=== PATIENT | female | born 1950 | race Two or more races ===

== ENCOUNTER 2022-08-08 06:21 | Outpatient (REF) | payer MEDICARE, MEDICAID, SELFPAY ==
[2022-08-08 11:24] LABS: Hemoglobin 11.9 g/dl (12.0-16.0); Mean Corpuscular HGB Conc 30.5 g/dl (31.0-35.0); Mean Corpuscular Hemoglobin 27.1 pg (27.0-33.0); Mean Corpuscular Volume 88.8 fL (80.0-98.0); Mean Platelet Volume 13.2 fL (9.4-12.3); Platelet Count 223 X10*3/uL (160-400); Red Blood Count 4.39 X10*6/uL (4.20-5.50); Red Cell Distribution Width 13.8 % (11.0-16.0)
[2022-08-08 11:45] LABS: Alanine Aminotransferase 19 U/L (0-31); Albumin Level 3.9 g/dL (3.5-5.0); Alkaline Phosphatase 72 U/L (39-117); Anion Gap 12 (12-20); Aspartate Amino Transferase 18 U/L (5-31); Blood Urea Nitrogen 18 mg/dL (9-16); Calcium 9.1 mg/dL (8.4-10.2); Carbon Dioxide 26 mmol/L (22-29); Chloride 108 mmol/L (96-108); Cholesterol 126 mg/dL; Estimated Glomerular Filt Rate 60; Glucose Fasting 112 mg/dL (60-99); HDL Cholesterol 38 mg/dL; LDL Cholesterol Calculated 67 mg/dl; Potassium 4.3 mmol/L (3.3-5.1); Sodium 142 mmol/L (135-145); Total Protein 7.3 g/dL (6.5-8.0); Triglycerides 108 mg/dL
[2022-08-08 12:21] LABS: TSH reflex Free T4 1.61 uIU/mL (0.32-4.0); Vitamin D 25-OH Total 29.3 ng/mL (>30)
== END 2022-08-08 06:22 | disposition home or self-care (01) ==
LOC: HO.HMGCLDS 06:21
PROVIDERS: PCP Nurse Practitioner Family; Visit Provider Nurse Practitioner Family
DX: Z00.00 Encounter for general adult medical examination without abnormal findings (principal); E55.9 Vitamin D deficiency, unspecified; Z79.899 Other long term (current) drug therapy
CPT/HCPCS: 36415; 80053; 80061; 82306; 84443; 85027

== ENCOUNTER 2022-11-22 14:40 | Outpatient (REF) | payer MEDICARE, SELFPAY ==
--- NOTE | ~2022-11-22 | MM_ITS ---
EXAMINATION: MM SCREENING DIGITAL BREAST TOMOSYNTHESIS, BILATERAL CLINICAL INFORMATION: Screening. Asymptomatic. The lifetime risk of breast cancer based on the Tyrer-Cuzick Model is 3%. COMPARISON: Mammography: There are no prior mammograms for comparison. TECHNIQUE: Digital breast tomosynthesis is performed in both the craniocaudal and mediolateral oblique views along with computer-aided detection (CAD). Synthesized 2D images are generated from the tomosynthesis. FINDINGS: There are scattered areas of fibroglandular density (ACR BI-RADS breast composition Category b). There are no significant masses, abnormal calcifications, or other abnormalities. MM/MM tomosynthesis screening BI IMPRESSION: No mammographic evidence of malignancy. ASSESSMENT: BI-RADS BI-RADS 1 - Negative RECOMMENDATION: Routine annual mammography screening. 1 year F/U This patient's information was entered into a reminder system with a target due date for their next mammogram.
--- NOTE | ~2022-11-22 | MM_ITS ---
EXAMINATION: BONE DENSITOMETRY CLINICAL INDICATION: Osteoporosis. COMPARISON: None (current study represents initial baseline exam). TECHNIQUE: Using a LocalOn DXA System (software version: 13.1) manufactured by [employer], dual-energy x-ray absorptiometry was performed of the lumbar spine and left hip. The images are of good technical quality. Summary results are attached. FINDINGS: LEFT FEMUR, NECK: BMD 0.766 g/cm2, Z-score -0.9, T-score -2.0, osteopenia. LEFT FEMUR, TOTAL: BMD 0.912 g/cm2, Z-score 0.0, T-score -0.8, normal. AP SPINE L1-L4: BMD 1.248 g/cm2, Z-score 1.2, T-score 0.6, normal. IDENTIFIED RISK FACTORS: Early menopause, secondary osteoporosis. HISTORY OF FRACTURE: None listed. MEDICATIONS: Vitamin D, bisphosphonate. MM/XR DEXA axial skeleton IMPRESSION: 1. DIAGNOSIS: Osteopenia based on the lowest T-score value of -2.0 in the femoral neck applying World Health Organization criteria. 2. 10-YEAR FRACTURE RISK PREDICTION, FRAX: Not performed in this patient on estrogen or bone building treatments. 3. Treatment Recommendations: NOF guidelines recommend consideration for treatment in postmenopausal women and men age 50 and older presenting with the following: -A hip or vertebral (clinical or morphometric) fracture. -T-score less than or equal to -2.5 at the femoral neck or spine after appropriate evaluation to exclude secondary causes. -Low bone mass at the hip or spine and a 10-year fracture probability by FRAX of greater than or equal to 3% for hip fracture or greater than or equal to 20% for major osteoporotic fracture based on the [place] adapted WHO algorithm. 4. Other Recommendations: All treatment decisions require clinical judgment and consideration of individual patient factors, including patient preferences, comorbidities, previous drug use, risk factors not captured in the FRAX model (e.g. frailty, falls, vitamin D deficiency, increased bone turnover, interval significant decline in bone density) and possible under or overestimation of fracture risk by FRAX. Additional medical evaluation for secondary cause of low bone mineral density may be appropriate. FUTURE SCAN RECOMMENDATION: People with diagnosed cases of osteoporosis or at high risk for fracture should have regular bone mineral density tests. For patients eligible for Medicare, routine testing is allowed once every 2 years. The testing frequency can be increased to one year for patients who have rapidly progressing disease, those who are receiving or discontinuing medical therapy to restore bone mass, or have additional risk factors.
== END 2022-11-22 14:41 | disposition home or self-care (01) ==
LOC: HO.MAMMO 14:40
PROVIDERS: PCP Nurse Practitioner Family; Visit Provider Nurse Practitioner Family
DX: Z12.31 Encounter for screening mammogram for malignant neoplasm of breast (principal); Z13.820 Encounter for screening for osteoporosis; Z78.0 Asymptomatic menopausal state; M81.0 Age-related osteoporosis without current pathological fracture
CPT/HCPCS: 77063; 77067; 77080

== ENCOUNTER → 2022-11-22 14:45 | Outpatient (BNV) | payer MEDICARE, SELFPAY | PROVIDERS: PCP Nurse Practitioner Family; Visit Provider Radiology Diagnostic Radiology | DX: Z12.31 Encounter for screening mammogram for malignant neoplasm of breast (principal) | CPT/HCPCS: 77063; 77067 ==

== ENCOUNTER 2022-12-05 06:39 | Outpatient (REF) | payer MEDICARE, SELFPAY ==
[2022-12-05 12:14] LABS: Cholesterol 197 mg/dL; Glucose Fasting 117 mg/dL (60-99); HDL Cholesterol 38 mg/dL; LDL Cholesterol Calculated 124 mg/dl; Triglycerides 176 mg/dL
== END 2022-12-05 06:40 | disposition home or self-care (01) ==
LOC: HO.HMGCLDS 06:39
PROVIDERS: PCP Nurse Practitioner Family; Visit Provider Nurse Practitioner Family
DX: R73.01 Impaired fasting glucose (principal); E78.5 Hyperlipidemia, unspecified
CPT/HCPCS: 36415; 80061; 82947

== ENCOUNTER 2022-12-07 11:05 | Outpatient (REF) | payer MEDICARE, SELFPAY ==
--- NOTE | ~2022-12-07 | XR_ITS ---
EXAMINATION: XR KNEE, RIGHT CLINICAL INFORMATION: Pain in right knee COMPARISON: None available. TECHNIQUE: Two views of the right knee. FINDINGS: Mild to moderate joint space narrowing with mild bony spurring. Patella tendon spurring. No joint effusion. No fracture. Vascular calcifications. XR/XR knee RT 2V IMPRESSION: Mild to moderate degenerative change in the right knee.
== END 2022-12-07 11:06 | disposition home or self-care (01) ==
LOC: HO.HMGCX 11:05
PROVIDERS: PCP Nurse Practitioner Family; Visit Provider Nurse Practitioner Family
DX: M25.561 Pain in right knee (principal); G89.29 Other chronic pain
CPT/HCPCS: 73560

== ENCOUNTER 2022-12-10 13:02 | Outpatient (AMB) | payer MEDICARE, MEDICAID, SELFPAY ==
[2022-12-10 13:08] VITALS: BP 104/64; PULSE 93; RESP 12; TEMP 36.6; O2SAT 95; BMI 35.0
--- NOTE | 2022-12-10 13:08 | A.OFFPC_ITS ---
Vital Signs 12/10/22 13:08 Height 5 ft 7 in Weight 223 lb 5 oz BMI 35.0 BP 104/64 Blood Pressure Location Rt brachial Position Sitting Respiration 12 Pulse 93 Pulse Source Pulse Oximeter Temp 97.9 F Temp Source Temporal Artery Scan Pulse Oximetry (%) 95 Oxygen Delivery Method Room Air Intake Visit Reasons: 2 mos HTN, HDL, right knee pain Sccm Administrator Required: Yes Sccm Administrator Name: Jojo ([id number]) Accompanied by: Son Allergies No Known Allergies Allergy (Verified 12/10/22 14:01) Medication List - Last Reconciled 12/10/22 by Fanta Zapien CNP acetaminophen (Tylenol) 650 mg (2 x 325 mg) PO Q6H PRN alendronate 70 mg PO QWEEK aspirin 81 mg PO DAILY atorvastatin 80 mg PO DAILY carvedilol 12.5 mg PO BID cholecalciferol (vitamin D3) 25 mcg PO DAILY 90 days furosemide 20 mg PO DAILY isosorbide mononitrate ER 15 mg PO DAILY lisinopril 10 mg PO DAILY Tobacco use date assessed: 07/22/22 Fall risk assessment: No Falls in past year Last assessed Fall Risk: 12/10/22 Dental Screening Dental Screen Date: 12/10/22 Did you have a dental visit in the last 12 months?: No Did you have a dental problem in the last 6 months where you did not have access to dental care?: No Was dental information given to patient?: Yes HPI HPI Comments History of Present Illness Details 72-year-old Citizen Of The [place] speaking female, accompanied by her son, presents for hypertension, hyperlipidemia, elevated fasting glucose, and right knee pain follow-up LP, fasting glucose, X-ray of the right knee, and DEXA scan were ordered on her last visit. Reports intermittent right knee pain. She takes Tylenol as needed. She notes that she has not done PT. She states that she was not contacted. She is still interested on PT. Interpretation by a professional quarter inspector via electronic tablet. [facility] Medical History (Updated 10/15/22 @ 16:04 by Fanta Zapien CNP) High cholesterol HTN (hypertension) Surgical History (Updated 12/10/22 @ 13:24 by Parris Lopez MA) No pertinent past surgical history Social History Housing: House Patient Tobacco Use Status: Never used Tobacco e-Cigarette/Vaping Use: Never Used service: No Current occupational status: retired Cognitive needs: No Hearing needs: No Vision needs: Yes Questionnaire Thrive Questionnaire Date Thrive assessed: 07/22/22 ANKIT-7 AMB Questionnaire ANKIT-7 Date ANKIT - 7 assessed: 07/22/22 Source: Developed by Drs. Michele Weaver, Suly Sheets, Greg Gibbons and colleagues, with an educational jemima from [employer]. Review of Systems Const Details: Const Denies chills, Denies fatigue, Denies fever(s), Denies headache(s) and Denies weakness ENT Denies dizziness and Denies headache(s) Card Denies chest pain, Denies lightheadedness, Denies dyspnea and Denies other (Palpitations) Resp Denies cough, Denies dyspnea, Denies wheezing and Denies other ( shortness of breath) GI Denies abdominal pain, Denies melena, Denies hematochezia, Denies change in bowel habits, Denies dyspepsia and Denies nausea Denies hematuria and Denies dysuria Musc Denies abnormal gait, Denies myalgias, Denies arthralgias, Denies numbness and Denies tingling Skin/Breast Denies rash, Denies unusual bruising and Denies wounds Neuro Denies abnormal gait, Denies dizziness, Denies headache(s), Denies memory loss, Denies numbness, Denies Sensory deficit (Neuro), Denies tingling and Denies weakness Psych Denies anxiety and Denies depression Endo Denies fatigue Aller/Immun Denies wheezing Physical exam (Primary Care) Vital Signs: Last Vital Signs Temp 97.9 F 12/10/22 13:08 Pulse 93 12/10/22 13:08 Resp 12 12/10/22 13:08 BP 104/64 12/10/22 13:08 Pulse Ox 95 12/10/22 13:08 Oxygen Delivery Method Room Air 12/10/22 13:08 BMI result Body Mass Index 35.0 Tobacco/Smoking Status: Tobacco use Status Tobacco use date assessed 07/22/22 12/10/22 13:14 Patient Tobacco Use Status Never used Tobacco 12/10/22 13:25 Tobacco use type 12/10/22 13:25 e-Cigarette/Vaping Use Never Used 12/10/22 13:14 Thrive Assessment: Date of Thrive Assessment Date Thrive assessed 07/22/22 12/10/22 13:14 Const Other: General: no acute distress and well developed Nutritional Appearance: well nourished Orientation/consciousness: patient oriented x3 [facility] Head: Yes normocephalic and Yes atraumatic Eyes General: appearance normal, both eyes and all related structures Pupils: Equal, round and reactive pupils present EOM: EOMs intact bilaterally Resp Effort & Inspection: normal respiratory effort Auscultation: clear to auscultation bilaterally Cardio Rate: regular rate Rhythm: regular rhythm Heart sounds: S1 normal heart sound present, S2 normal heart sound present, no gallops, no murmurs and no rubs GI Palpation (GI): No Abdominal aortic bruit present, Soft to palpation, nontender, No hepatosplenomegaly present and No Rebound tenderness present Auscultation: normal bowel sounds General: Yes no CVA tenderness Back/Spine/Pelvis Back: no CVA tenderness Cervical Spine: cervical ROM normal and No Cervical spine tenderness Thoracic/Lumbar Spine: thoraco-lumbar ROM normal, No pain with thoraco-lumbar ROM, No thoracic spinal tenderness and No lumbar spinal tenderness Extrem General: Yes normal to inspection, No edema and No calf tenderness Skin General: warm and dry. Normal skin color. Normal skin turgor Lesions: no lesions Rashes: no rashes Trauma: no lacerations or abrasions Wounds: no wounds Nails: normal Neuro General: patient oriented x3, gait normal and no focal neuro deficit Cranial nerves: Yes Equal, round and reactive pupils present Cognition (Neuro): normal cognition Gait exam (Neuro): Normal gait present Sensory Exam: No Sensory deficit (Neuro) Psych Affect: normal affect Assessment and Plan Assessment & Plan (1) HTN (hypertension): Code(s): I10 - Essential (primary) hypertension Qualifiers: Hypertension type: unspecified Qualified Code(s): I10 - Essential (primary) hypertension Plan: Blood pressure is controlled, 104/64, within goal of less than 140/90 Continue to take carvedilol, furosemide, isosorbide monohydrate, and lisinopril as prescribed Low-sodium diet encouraged Follow-up in 3 months or return sooner with concerns or symptoms Verbalized understanding and agreed with treatment plan. (2) Hyperlipidemia: Code(s): E78.5 - Hyperlipidemia, unspecified Plan: Current lipid levels with slight increased from previous levels Continue take atorvastatin as prescribed Limits foods high in saturated fat and avoid foods high trans fat Routine exercise encouraged Lipid panel ordered. Advised to get blood work done before next visit Follow-up in 3 months Verbalized understanding and agreed with treatment plan. (3) Chronic pain of right knee: Code(s): M25.561 - Pain in right knee; G89.29 - Other chronic pain Plan: Reports intermittent chronic right knee pain Normal physical exam X-rays normal Likely arthritis Continue to take Tylenol as prescribed Warm/cool compresses encouraged Physical therapy notified the patient states she has not been contacted Return with worsening symptoms Verbalized understanding and agreed with treatment plan. (4) Elevated fasting glucose: Code(s): R73.01 - Impaired fasting glucose Plan: Fasting blood glucose have been elevated twice A1c is 5.6% today Informed that she does not have prediabetes or diabetes Healthy diet and routine encouraged (5) Osteoporosis: Code(s): M81.0 - Age-related osteoporosis without current pathological fracture Qualifiers: Osteoporosis type: unspecified Plan: She reports history of osteoporosis She is on alendronate 50 mg every week Recent DEXA scan revealed osteopenia Referred to endocrinology for further evaluation Informed that she be contacted to schedule an appointment Verbalized understanding and agrees with plan. (6) Vitamin D deficiency: Code(s): E55.9 - Vitamin D deficiency, unspecified Plan: Recent vitamin-D level is low, 29.3 Continue to take vitamin-D as prescribed Informed that sun exposure may maintain vitamin-D level Follow-up with symptoms or concerns Verbalized understanding and agreed with treatment plan. Orders: Orders AMB Hemoglobin A1c Today Z13.9 - Encounter for screening, unspecified Referrals Endocrinology Referral M81.0 - Age-related osteoporosis without current pathological fracture Coding Level of Care Code Est Pt Level 4 (80986) Diagnoses HTN (hypertension) I10 Hypertension type: unspecified Hyperlipidemia E78.5 Chronic pain of right knee M25.561; G89.29 Elevated fasting glucose R73.01 Osteoporosis M81.0 Osteoporosis type: unspecified Vitamin D deficiency E55.9 Time Spent (min) 35
== END 2022-12-10 14:30 | disposition home or self-care (01) ==
PROVIDERS: Visit Provider Nurse Practitioner Family
DX: I10 Essential (primary) hypertension (principal); E78.5 Hyperlipidemia, unspecified; M25.561 Pain in right knee; E55.9 Vitamin D deficiency, unspecified; G89.29 Other chronic pain; R73.01 Impaired fasting glucose; M81.0 Age-related osteoporosis without current pathological fracture
CPT/HCPCS: 99214

== ENCOUNTER 2023-03-13 13:08 | Outpatient (AMB) | payer MEDICARE, SELFPAY ==
--- NOTE | 2023-03-13 13:17 | A.OFFPC_ITS ---
Vital Signs 03/13/23 13:18 Height 5 ft 7 in Weight 222 lb 8 oz BMI 34.8 BP 128/70 Blood Pressure Location Lt brachial Position Sitting Respiration 13 Pulse 120 H Pulse Source Pulse Oximeter Temp 97.6 F Temp Source Temporal Artery Scan Pulse Oximetry (%) 98 Intake Visit Reasons: 3 mos HTN, HLD Software Quality Specialist Required: Yes Accompanied by: Son Allergies No Known Allergies Allergy (Verified 03/13/23 13:47) Medication List - Last Reconciled 03/13/23 by Fanta Zapien CNP acetaminophen (Tylenol) 650 mg (2 x 325 mg) PO Q6H PRN alendronate 70 mg PO QWEEK aspirin 81 mg PO DAILY atorvastatin 80 mg PO DAILY carvedilol 12.5 mg PO BID cholecalciferol (vitamin D3) 25 mcg PO DAILY 90 days furosemide 20 mg PO DAILY isosorbide mononitrate ER 15 mg PO DAILY lisinopril 10 mg PO DAILY Tobacco use date assessed: 07/22/22 Fall risk assessment: No Falls in past year Last assessed Fall Risk: 03/13/23 Dental Screening Dental Screen Date: 03/13/23 Did you have a dental visit in the last 12 months?: No Did you have a dental problem in the last 6 months where you did not have access to dental care?: No Was dental information given to patient?: Patient has dentist HPI HPI Comments History of Present Illness Details 72-year-old female, accompanied by her s on, presents for hypertension and hyperlipidemia follow-up. She admits to taking her medication as prescribed. She also admits to maintaining low-sodium diet and making healthy dietary choices. She offers no complaints and denies acute symptoms. She notes that she had blockages in 2 of her coronary arteries and had stents placed in [place] 4 years ago. She request cardiology referral. [facility] Medical History High cholesterol HTN (hypertension) Surgical History No pertinent past surgical history Social History Housing: House Patient Tobacco Use Status: Never used Tobacco e-Cigarette/Vaping Use: Never Used service: No Current occupational status: retired Cognitive needs: No Hearing needs: No Vision needs: No Questionnaire Thrive Questionnaire Date Thrive assessed: 07/22/22 ANKIT-7 AMB Questionnaire ANKIT-7 Date ANKIT - 7 assessed: 07/22/22 Source: Developed by Drs. Michele Weaver, Suly Sheets, Greg Gibbons and colleagues, with an educational jemima from [employer]. Review of Systems Const Details: Const Denies chills, Denies fatigue, Denies fever(s), Denies headache(s) and Denies weakness ENT Denies dizziness and Denies headache(s) Card Denies chest pain, Denies lightheadedness, Denies dyspnea and Denies other (Palpitations) Resp Denies cough, Denies dyspnea, Denies wheezing and Denies other ( shortness of breath) GI Denies abdominal pain, Denies melena, Denies hematochezia, Denies change in bowel habits, Denies dyspepsia and Denies nausea Denies hematuria and Denies dysuria Musc Denies abnormal gait, Denies myalgias, Denies arthralgias, Denies numbness and Denies tingling Skin/Breast Denies rash, Denies unusual bruising and Denies wounds Neuro Denies abnormal gait, Denies dizziness, Denies headache(s), Denies memory loss, Denies numbness, Denies Sensory deficit (Neuro), Denies tingling and Denies weakness Psych Denies anxiety, Denies depression, Denies memory loss Endo Denies cold intolerance, Denies fatigue, Denies heat intolerance, Denies polydipsia and Denies polyuria Aller/Immun Denies wheezing Physical exam (Primary Care) Vital Signs: Last Vital Signs Temp 97.6 F 03/13/23 13:18 Pulse 120 H 03/13/23 13:18 Resp 13 03/13/23 13:18 BP 128/70 03/13/23 13:18 Pulse Ox 98 03/13/23 13:18 BMI result Body Mass Index 34.8 Tobacco/Smoking Status: Tobacco use Status Tobacco use date assessed 07/22/22 03/13/23 13:18 Patient Tobacco Use Status Never used Tobacco 03/13/23 13:18 Tobacco use type 12/10/22 15:03 e-Cigarette/Vaping Use Never Used 03/13/23 13:18 Thrive Assessment: Date of Thrive Assessment Date Thrive assessed 07/22/22 03/13/23 13:18 Const Other: General: no acute distress and well developed Nutritional Appearance: well nourished Orientation/consciousness: patient oriented x3 [facility] Head: Yes normocephalic and Yes atraumatic Eyes General: appearance normal, both eyes and all related structures Pupils: Equal, round and reactive pupils present EOM: EOMs intact bilaterally Resp Effort & Inspection: normal respiratory effort Auscultation: clear to auscultation bilaterally Cardio Rate: regular rate Rhythm: regular rhythm Heart sounds: S1 normal heart sound present, S2 normal heart sound present, no gallops, no murmurs and no rubs GI Palpation (GI): No Abdominal aortic bruit present, Soft to palpation, nontender, No hepatosplenomegaly present and No Rebound tenderness present Auscultation: normal bowel sounds General: Yes no CVA tenderness Back/Spine/Pelvis Back: no CVA tenderness Cervical Spine: cervical ROM normal and No Cervical spine tenderness Thoracic/Lumbar Spine: thoraco-lumbar ROM normal, No pain with thoraco-lumbar ROM, No thoracic spinal tenderness and No lumbar spinal tenderness Extrem General: Yes normal to inspection, No edema and No calf tenderness Skin General: warm and dry. Normal skin color. Normal skin turgor Lesions: no lesions Rashes: no rashes Trauma: no lacerations or abrasions Wounds: no wounds Nails: normal Neuro General: patient oriented x3, gait normal and no focal neuro deficit Cranial nerves: Yes Equal, round and reactive pupils present Cognition (Neuro): normal cognition Gait exam (Neuro): Normal gait present Sensory Exam: No Sensory deficit (Neuro) Psych Appearance: grossly normal Affect: normal affect Attitude: cooperative Thought process: Normal thought process present Assessment and Plan Assessment & Plan (1) HTN (hypertension): Code(s): I10 - Essential (primary) hypertension Qualifiers: Hypertension type: unspecified Qualified Code(s): I10 - Essential (primary) hypertension Plan: For blood pressures control, 120/70, within goal of less than 130/80 Continue with current treatment regimen Low-sodium diet encouraged Follow-up in 4 months or return sooner with symptoms or concerns Verbalized understanding and agreed with treatment plan. (2) Hyperlipidemia: Code(s): E78.5 - Hyperlipidemia, unspecified Plan: Recent triglycerides, total cholesterol, and LDL levels were elevated, 176, 197, and 124 respectively. HDL was low, 38 Continue to take atorvastatin as prescribed Limit foods high in saturated fat and avoid foods high trans fat Routine exercise encouraged Will recheck lipid levels. Advised to fast for 10-12 hours before getting blood work done Will review results and make changes as needed Follow-up in 4 months or return sooner with symptoms or concerns Verbalized understanding and agreed with treatment plan. (3) Coronary heart disease: Code(s): I25.10 - Atherosclerotic heart disease of [place] coronary artery without angina pectoris Plan: She notes that she had blockages in 2 of her coronary arteries and had stents placed in [place] 4 years ago. She request cardiology referral. No acute symptoms Referred to Cardiology Orders: Orders Lipid Panel Today E78.5 - Hyperlipidemia, unspecified Referrals Cardiology Referral I25.10 - Atherosclerotic heart disease of [place] coronary artery without angina pectoris Medications: Changed From atorvastatin 80 mg PO DAILY To atorvastatin 80 mg PO DAILY 90 days 90 tabs 1RF From carvedilol 12.5 mg PO BID To carvedilol 12.5 mg PO BID 90 days 180 tabs 1RF From lisinopril 10 mg PO DAILY To lisinopril 10 mg PO DAILY 90 days 90 tabs 1RF From alendronate 70 mg PO QWEEK To alendronate 70 mg PO QWEEK 90 days 13 tabs 0RF From furosemide 20 mg PO DAILY To furosemide 20 mg PO DAILY 90 days 90 tabs 1RF From isosorbide mononitrate ER 15 mg PO DAILY To isosorbide mononitrate ER 15 mg (1/2 x 30 mg) PO DAILY 90 days 45 tabs 1RF Coding Level of Care Code Est Pt Level 3 (45123) Diagnoses Hypertension, unspecified type I10 Hypertension type: unspecified Hyperlipidemia E78.5 Coronary heart disease I25.10
[2023-03-13 13:18] VITALS: BP 128/70; PULSE 120; RESP 13; TEMP 36.4; O2SAT 98; BMI 34.8
== END 2023-03-13 14:04 | disposition home or self-care (01) ==
PROVIDERS: PCP Nurse Practitioner Family; Visit Provider Nurse Practitioner Family
DX: Z23 Encounter for immunization (principal)
CPT/HCPCS: 90471; 90686; 99213

== ENCOUNTER 2023-04-02 10:25 | Outpatient (REF) | payer MEDICARE, SELFPAY ==
[2023-04-02 14:03] LABS: Cholesterol 138 mg/dL (<200); HDL Cholesterol 39 mg/dL (>40); LDL Cholesterol Calculated 74 mg/dL (<100); Triglycerides 125 mg/dL (<150)
== END 2023-04-02 10:26 | disposition home or self-care (01) ==
LOC: HO.HMGCLDS 10:25
PROVIDERS: PCP Nurse Practitioner Family; Visit Provider Nurse Practitioner Family
DX: E78.5 Hyperlipidemia, unspecified (principal)
CPT/HCPCS: 36415; 80061

== ENCOUNTER 2023-04-14 09:09 | Outpatient (AMB) | payer MEDICARE, SELFPAY ==
[2023-04-14 09:25] VITALS: BP 136/72; BMI 34.5
--- NOTE | 2023-04-14 09:25 | A.OFFVIS_ITS ---
Intake Vital Signs 04/14/23 09:25 Height 5 ft 7 in Weight 220 lb 7.396 oz BMI 34.5 BP 136/72 Intake Visit Reasons: DEXA/PCP referral/DO NOT RS Closed Circuit Screen Watcher Required: Yes Closed Circuit Screen Watcher Language: Director Of Health Care Marketing Name: Stefania MCRAE Information Interpreted: non-clinical & clinical Accompanied by: Self / Same As Patient Allergies No Known Allergies Allergy (Verified 04/14/23 09:27) Post menopausal: Yes HPI HPI Comments History of Present Illness Details The patient is presenting referred from her PCP egarding DEXA scan results . T score @ spine and femoral Neck respectively were=+.6 /-2.0 and 10 year FRAX risk = was not computed for severe osteoporosis and fracture. No previous baseline DEXA scan available . The patient has been on alendronate for 4 years approximately 1 according to her she had a dexa scan but no report available [facility] Medical History High cholesterol HTN (hypertension) Surgical History Hx of tubal ligation Family History Brother HTN (hypertension) Father HTN (hypertension) Mother HTN (hypertension) Sister HTN (hypertension) Social History Household Members Other:: son Housing: House Patient Tobacco Use Status: Never used Tobacco e-Cigarette/Vaping Use: Never Used service: No Current occupational status: retired Cognitive needs: No Hearing needs: No Vision needs: No Review of Systems Const All systems reviewed & are unremarkable except as noted in HPI and below Reports as per HPI and Reports no additional complaints GI Reports no additional complaints Reports no additional complaints Physical Exam Vital Signs: Last Vital Signs BP 136/72 04/14/23 09:25 BMI result Body Mass Index 34.5 Assessment & Plan Assessment & Plan (1) Osteopenia: Code(s): M85.80 - Other specified disorders of bone density and structure, unspecified site Plan: Discussed with the patient the results of the DEXA scan showing no evidence of osteoporosis with no baseline DEXA scan to be compare to. Explained to the pa tient that it is recommended to discontinuation of alendronate after five years of therapy results in a gradual decline in BMD but no significantly higher risk of fracture in most women. Thus, stopping bisphosphonate therapy after five years may be reasonable for some low-risk women (eg, no history of fracture and T-scores better than -2.5) as long as they are followed carefully by BMD and assessment of risk factors. However, in women at highest risk for fracture (T-score below -3.5), the recommendation is to continuing alendronate for up to 10 years as BMD and fracture benefits were maintained with no increased risk of adverse events. Recommended the patient to get her DEXA scan report from 4 years ago, to continue alendronate with calcium/vitamin-D 1200 mg/800 international p.o. q.d. for the time being, and to schedule a 2 months follow-up appointment to discuss further. All questions answered, the patient verbalized understanding. Coding Level of Care Code New Pt Level 3 (96502) Diagnoses Osteopenia M85.80
== END 2023-04-14 10:36 | disposition home or self-care (01) ==
LOC: HO.HWS 09:10
PROVIDERS: PCP Nurse Practitioner Family; Visit Provider Obstetrics & Gynecology
DX: M85.80 Other specified disorders of bone density and structure, unspecified site (principal)
CPT/HCPCS: 99203

== ENCOUNTER → 2023-04-14 09:09 | Outpatient (BNVA) | payer MEDICARE, SELFPAY | PROVIDERS: PCP Nurse Practitioner Family; Visit Provider Obstetrics & Gynecology | DX: M85.80 Other specified disorders of bone density and structure, unspecified site (principal) | CPT/HCPCS: 99202 ==

== ENCOUNTER 2023-06-06 12:49 | Outpatient (AMB) | payer MEDICARE, SELFPAY ==
--- NOTE | 2023-06-06 12:54 | MHC.PC.OV ---
Vital Signs 06/06/23 12:55 06/06/23 13:31 Height 5 ft 7 in Weight 223 lb BMI 34.9 BP 176/82 H 148/80 H Blood Pressure Location Rt brachial Rt brachial Position Sitting Sitting Pulse 99 88 Pulse Source Pulse Oximeter Auscultation Temp Source Skin Pulse Oximetry (%) 98 Oxygen Delivery Method Room Air Intake Visit Reasons: 4 mos HTN, HLD Jackhammer Operator Required: Yes Jackhammer Operator Language: Lebanese Allergies No Known Allergies Allergy (Verified 06/06/23 13:28) Medication List - Last Reconciled 06/06/23 by Fanta Zapien CNP acetaminophen (Tylenol) 650 mg (2 x 325 mg) PO Q6H PRN alendronate 70 mg PO QWEEK 90 days aspirin 81 mg PO DAILY atorvastatin 80 mg PO DAILY 90 days carvedilol 12.5 mg PO BID 90 days cholecalciferol (vitamin D3) 25 mcg PO DAILY 90 days furosemide 20 mg PO DAILY 90 days isosorbide mononitrate ER 15 mg (1/2 x 30 mg) PO DAILY 90 days lisinopril 10 mg PO DAILY 90 days Tobacco use date assessed: 06/06/23 Fall risk assessment: No Falls in past year Last assessed Fall Risk: 06/06/23 Dental Screening Dental Screen Date: 06/06/23 HPI HPI Comments History of Present Illness Details 72-year-old Lebanese speaking female, accompanied by her son, presents for hypertension and hyperlipidemia follow-up She admits to taking her medications as prescribed without adverse reactions Her only complaint is pain underneath her left heel for the past 3 weeks. The pain started after she twisted her left foot while leaving [facility]. She has not been taking anything for pain PFSH Medical History High cholesterol HTN (hypertension) Surgical History Hx of tubal ligation Family History Brother HTN (hypertension) Father HTN (hypertension) Mother HTN (hypertension) Sister HTN (hypertension) Social History Household Members Other:: son Housing: House Patient Tobacco Use Status: Never used Tobacco e-Cigarette/Vaping Use: Never Used service: No Current occupational status: retired Cognitive needs: No Hearing needs: No Vision needs: No Questionnaire Thrive Questionnaire Date Thrive assessed: 07/22/22 AUDIT C Alcohol Use Questionnaire (AUDIT-C) 1. How often do you have a drink containing alcohol?: Never 3. How often do you have six or more drinks on one occasion?: Never Total Score: 0 ANKIT-7 AMB Questionnaire ANKIT-7 Date ANKIT - 7 assessed: 06/06/23 Source: Developed by Drs. Michele Weaver, Suly Sheets, Greg Gibbons and colleagues, with an educational jemima from [employer]. Review of Systems Const Details: Const Denies chills, Denies fatigue, Denies fever(s), Denies headache(s) and Denies weakness ENT Denies dizziness and Denies headache(s) Card Denies chest pain, Denies lightheadedness, Denies dyspnea and Denies other (Palpitations) Resp Denies cough, Denies dyspnea, Denies wheezing and Denies other ( shortness of breath) GI Denies abdominal pain, Denies melena, Denies hematochezia, Denies change in bowel habits, Denies dyspepsia and Denies nausea Denies hematuria and Denies dysuria Musc Denies abnormal gait, Denies myalgias, Denies arthralgias, Denies numbness and Denies tingling Skin/Breast Denies rash, Denies unusual bruising and Denies wounds Neuro Denies abnormal gait, Denies dizziness, Denies headache(s), Denies memory loss, Denies numbness, Denies Sensory deficit (Neuro), Denies tingling and Denies weakness Psych Denies anxiety, Denies depression, Denies memory loss Endo Denies cold intolerance, Denies fatigue, Denies heat intolerance, Denies polydipsia and Denies polyuria Aller/Immun Denies wheezing Physical exam (Primary Care) Vital Signs: Last Vital Signs Pulse 99 06/06/23 12:55 BP 176/82 H 06/06/23 12:55 Pulse Ox 98 06/06/23 12:55 Oxygen Delivery Method Room Air 06/06/23 12:55 BMI result Body Mass Index 34.9 Tobacco/Smoking Status: Tobacco use Status Tobacco use date assessed 06/06/23 06/06/23 13:04 Patient Tobacco Use Status Never used Tobacco 06/06/23 12:55 Tobacco use type 12/10/22 15:03 e-Cigarette/Vaping Use Never Used 06/06/23 12:55 Thrive Assessment: Date of Thrive Assessment Date Thrive assessed 07/22/22 06/06/23 12:55 Const Other: General: no acute distress and well developed Nutritional Appearance: well nourished Orientation/consciousness: patient oriented x3 HENMT Head: Yes normocephalic and Yes atraumatic Eyes General: appearance normal, both eyes and all related structures Pupils: Equal, round and reactive pupils present EOM: EOMs intact bilaterally Resp Effort & Inspection: normal respiratory effort Auscultation: clear to auscultation bilaterally Cardio Rate: regular rate Rhythm: regular rhythm Heart sounds: S1 normal heart sound present, S2 normal heart sound present, no gallops, no murmurs and no rubs GI Palpation (GI): No Abdominal aortic bruit present, Soft to palpation, nontender, No hepatosplenomegaly present and No Rebound tenderness present Auscultation: normal bowel sounds General: Yes no CVA tenderness Back/Spine/Pelvis Back: no CVA tenderness Cervical Spine: cervical ROM normal and No Cervical spine tenderness Thoracic/Lumbar Spine: thoraco-lumbar ROM normal, No pain with thoraco-lumbar ROM, No thoracic spinal tenderness and No lumbar spinal tenderness Extrem General: Yes normal to inspection, No edema and No calf tenderness Skin General: warm and dry. Normal skin color. Normal skin turgor Neuro General: patient oriented x3, gait normal and no focal neuro deficit Cranial nerves: Yes Equal, round and reactive pupils present Cognition (Neuro): normal cognition Gait exam (Neuro): Normal gait present Sensory Exam: No Sensory deficit (Neuro) Psych Appearance: grossly normal Affect: normal affect Attitude: cooperative Thought process: Normal thought process present Assessment and Plan Assessment & Plan (1) HTN (hypertension): Code(s): I10 - Essential (primary) hypertension Qualifiers: Hypertension type: unspecified Qualified Code(s): I10 - Essential (primary) hypertension Plan: Resting blood pressure is 140/80, above goal of less than 130/80 Lisinopril increased to 20 mg daily. Take as prescribed Continue to take carvedilol, furosemide, and isosorbide mononitrate as prescribed Low-sodium diet encouraged Follow-up for a nurse visit for blood pressure check in 2 weeks Return in 1 month or sooner with symptoms such as chest pain, visual disturbances, dizziness/lightheadedness, or severe headache Verbalized understanding and agreed with treatment plan Interpretation by the patient's son per patient's preference (2) Hyperlipidemia: Code(s): E78.5 - Hyperlipidemia, unspecified Plan: Recent triglyceride, total cholesterol, and LDL levels are normal; HDL level is slightly low, 39 Continue to take atorvastatin as prescribed Advised to limit foods high in saturated fat and avoid foods high in trans fat Routine exercise encouraged Will continue to monitor Verbalized understanding and agreed with treatment plan (3) Pain of left heel: Code(s): M79.672 - Pain in left foot Plan: Left heel pain x3 weeks; related to twisting of the foot while walking No swelling, erythema, or overt trauma Likely musculoskeletal pain Take Tylenol as prescribed Warm/cold compresses encouraged Advised to use cane or at all times walker for ambulation Follow-up with worsening or new symptoms Verbalized understanding and agreed with treatment plan Medications: New lisinopril 20 mg PO DAILY 90 days 90 tabs 1RF Discontinued lisinopril Discontinued Reason: Doctor's Order 10 mg PO DAILY 90 days 90 tabs 1RF Coding Level of Care Code Est Pt Level 4 (95866) Diagnoses Hypertension, unspecified type I10 Hypertension type: unspecified Hyperlipidemia E78.5 Pain of left heel M79.672
[2023-06-06 12:55] VITALS: BP 176/82; PULSE 99; O2SAT 98; BMI 34.9
[2023-06-06 13:31] VITALS: BP 148/80; PULSE 88
== END 2023-06-06 14:06 | disposition home or self-care (01) ==
PROVIDERS: PCP Nurse Practitioner Family; Visit Provider Nurse Practitioner Family
DX: I10 Essential (primary) hypertension (principal); E78.5 Hyperlipidemia, unspecified; M79.672 Pain in left foot
CPT/HCPCS: 99214

== ENCOUNTER 2023-06-12 14:16 | Outpatient (AMB) | payer MEDICARE, SELFPAY ==
--- NOTE | 2023-06-12 14:31 | A.OFFVIS_ITS ---
Intake Vital Signs 06/12/23 14:33 Height 5 ft 7 in Weight 220 lb BMI 34.5 BP 130/80 Intake Visit Reasons: annual Intake Note: no concerns Engineering Test Mechanic Required: Yes Engineering Test Mechanic Language: Urologic Nurse Name: Stefania MCRAE Information Interpreted: non-clinical & clinical Resource Management Planner: Resource Management Planner Present (Stefania MCRAE) Accompanied by: Self / Same As Patient Allergies No Known Allergies Allergy (Verified 06/12/23 14:39) Post menopausal: Yes HPI HPI Comments History of Present Illness Details Presenting for annual exam. No complaints. Last Pap/HPV was in 2019 was negative Last Mammogram was BI-RADS 1 in 11/15 Last Colonoscopy was 3 years ago, according to patient the recommendation was to repeat in 5 years Last DEXA scan was in 11/15, the patient had an endocrinology consult recommended to discontinue on alendronate since she has been on it for 5 years PFS Medical History High cholesterol HTN (hypertension) Surgical History Hx of tubal ligation Family History Brother HTN (hypertension) Father HTN (hypertension) Mother HTN (hypertension) Sister HTN (hypertension) Social History Household Members Other:: son Housing: House Patient Tobacco Use Status: Never used Tobacco e-Cigarette/Vaping Use: Never Used service: No Current occupational status: retired Cognitive needs: No Hearing needs: No Vision needs: No Female Reproductive History Menstrual Menopause type: natural Date of last pap smear: 11/13/18 Date of Mammogram: 11/22/22 Date of last Bone Density Screenin11/22/22 Review of Systems Const All systems reviewed & are unremarkable except as noted in HPI and below Card Reports as per HPI Resp Reports as per HPI GI Reports as per HPI and Reports no additional complaints Reports as per HPI Physical Exam Vital Signs: Last Vital Signs BP 130/80 06/12/23 14:33 BMI result Body Mass Index 34.5 Const General: cooperative, healthy appearing and comfortable Chest Chest palpation & inspection: normal inspection of the chest and normal palpation of entire chest wall Breast/axilla inspection: normal inspection of the breasts and normal inspection of the axillae Breast/axilla palpation: normal palpation of the breasts, normal palpation of the axillae and no axillary lymphadenopathy Resp Effort & Inspection: normal respiratory effort Auscultation: clear to auscultation bilaterally Percussion: percussion normal Cardio Palpation: normal PMI Rate: regular rate Rhythm: regular rhythm Heart sounds: no murmurs and no rubs Peripheral pulses: Peripheral pulses 2+ throughout GI Inspection: Yes normal to inspection Palpation (GI): Soft to palpation, nontender, no guarding, not rigid and No hepatosplenomegaly present Percussion: Yes normal to percussion Auscultation: normal bowel sounds Rectal Exam - Female: deferred General: Yes bladder normal to palpation External Female Exam: No lesion Speculum Exam - Vagina: normal appearance of the vagina, normal palpation, normal vaginal discharge and not erythematous Speculum Exam - Cervix: normal appearance of the cervix and normal palpation Bimanual exam- vagina & uterus: normal bimanual exam, normal palpation, uterine size normal, bladder normal to palpation, consistency normal and normal palpation Bimanual Exam- Adnexa, other: normal adnexae, no masses and no tenderness Assessment & Plan Assessment & Plan (1) Well woman exam: Code(s): Z01.419 - Encounter for gynecological examination (general) (routine) without abnormal findings Plan: Co testing not indicated since the patient 's age is above 65 with no history of abnormal Pap smears last 25 years. Counseled the patient about the recommended dietary allowance of 1200 mg of Calcium & 800 IU of vitamin D. Instructions given to patient to schedule next screening Mammogram in 11/12. Referred her for screening colonoscopy done. The patient was instructed to perform monthly self-breast exams and to schedule her annual exam in a year; All questions answered and the patient verbalized understanding. Coding Level of Care Code Est Pt Prev Care >65y(22506) Diagnoses Well woman exam Z01.419
[2023-06-12 14:33] VITALS: BP 130/80; BMI 34.5
== END 2023-06-12 14:56 | disposition home or self-care (01) ==
PROVIDERS: PCP Nurse Practitioner Family; Visit Provider Obstetrics & Gynecology
DX: Z01.419 Encounter for gynecological examination (general) (routine) without abnormal findings (principal)
CPT/HCPCS: 99397

== ENCOUNTER → 2023-06-12 14:16 | Outpatient (BNVA) | payer MEDICARE, SELFPAY | PROVIDERS: PCP Nurse Practitioner Family; Visit Provider Obstetrics & Gynecology ==

== ENCOUNTER 2023-06-19 13:51 | Outpatient (AMB) | payer MEDICARE, SELFPAY ==
[2023-06-19 13:56] VITALS: BP 144/80; BMI 34.7
--- NOTE | 2023-06-19 13:56 | MHC.OFFVIS ---
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 Zapien/Angina Intake Note: NPV w/ EKG Bladder Tier Required: No Accompanied by: Son Allergies No Known Allergies Allergy (Verified 06/19/23 14:00) Medication List - Last Reconciled 06/19/23 by Ariel Montgomery MD acetaminophen (Tylenol) 650 mg (2 x 325 mg) PO Q6H PRN alendronate 70 mg PO QWEEK aspirin 81 mg PO DAILY atorvastatin 80 mg PO DAILY 90 days carvedilol 12.5 mg PO BID 90 days cholecalciferol (vitamin D3) 25 mcg PO DAILY 90 days furosemide 20 mg PO DAILY 90 days isosorbide mononitrate ER 15 mg (1/2 x 30 mg) PO DAILY 90 days lisinopril 20 mg PO DAILY 90 days HPI HPI Comments History of Present Illness Details Mariann is here for consultation regarding coronary disease. She is moved from [place]. She is brought some documentation for review and is also accompanied by her son who speaks [place] Citizen. He acted as ink blender and the appropriate forms were signed. It seems that around 2019, she was complaining of exertional chest pain. Echocardiogram had shown evidence of wall motion abnormalities along the LAD distribution. Then it seems that she underwent an exercise stress perfusion imaging study that was positive with inducible ischemia again in the LAD territory. Followed by cardiac catheterization that found 99% mid LAD stenosis requiring stenting. After that, it seems she got better. She really does not have any clear-cut symptoms like angina or shortness of breath or in fact anything cardiac sounding. Seems to be getting along okay. [facility] Medical History (Updated 06/19/23 @ 14:26 by Ariel Montgomery MD) Atherosclerotic cardiovascular disease High cholesterol HTN (hypertension) Surgical History Hx of tubal ligation Family History (Updated 06/19/23 @ 14:01 by Pam Childs) Brother HTN (hypertension) History of open heart surgery Father HTN (hypertension) Mother HTN (hypertension) Sister HTN (hypertension) Social History Household Members Other:: son Housing: House Patient Tobacco Use Status: Never used Tobacco e-Cigarette/Vaping Use: Never Used service: No Current occupational status: retired Cognitive needs: No Hearing needs: No Vision needs: No Review of Systems Const Denies chills, Denies daytime sleepiness, Denies fatigue, Denies fever(s), Denies frequent falls, Denies night sweats, Denies snoring, Denies weakness, Denies weight gain and Denies weight loss Eyes Denies loss of vision ENT Denies dizziness and Denies hearing loss Card Denies chest pain, Denies chest pain with activity, Denies syncope, Denies rapid heart rate, Denies edema, Denies claudication, Denies leg edema, Denies lightheadedness, Denies palpitations, Reports dyspnea on exertion and Denies orthopnea Resp Denies cough, Denies excessive phlegm production, Reports dyspnea on exertion, Denies snoring and Denies wheezing GI Denies abdominal pain, Denies hematochezia, Denies change in bowel habits, Denies change in stool character, Denies heartburn, Denies nausea and Denies vomiting Denies hematuria, Denies urinary frequency and Denies dysuria Musc Denies arthralgias, Denies muscle weakness, Denies numbness and Denies tingling Skin/Breast Denies nail changes and Denies rash Neuro Denies Abnormal speech present, Denies dizziness, Denies syncope, Denies frequent falls, Denies loss of vision, Denies memory loss, Denies numbness, Denies tingling and Denies weakness Psych Denies depression and Denies memory loss Endo Denies fatigue and Denies palpitations Aller/Immun Denies wheezing Physical Exam Vital Signs: Last Vital Signs BP 144/80 H 06/19/23 13:56 BMI result Body Mass Index 34.7 Const General: comfortable and no acute distress Orientation/consciousness: patient oriented x3 HEENT Other: Unremarkable Head: Yes normal to inspection Neck Neck: Yes normal visual inspection Chest Chest palpation & inspection: normal inspection of the chest Resp Auscultation: clear to auscultation bilaterally Cardio Palpation: normal PMI Heart sounds: S1 normal heart sound present, S2 normal heart sound present, no gallops, no murmurs and no rubs GI Palpation (GI): Soft to palpation Back/Spine/Pelvis Other: unremarkable Skin General skin exam: no rashes or lesions noted Neuro General: patient oriented x3 Speech: No Abnormal speech present Extrem General: Yes normal to inspection Psych Mental Status: mental status grossly normal Office Procedures EKG Details: EKG with sinus rhythm at 89/Min; no significant ST-T changes and otherwise unremarkable. [place]. [id number], Complete Assessment & Plan Assessment & Plan (1) Atherosclerotic cardiovascular disease: Code(s): I25.10 - Atherosclerotic heart disease of [place] coronary artery without angina pectoris Plan: Status post LAD PCI in 2019. She is free of angina. Continue long-term aspirin. Continue beta-blockers and statins. (2) HTN (hypertension): Code(s): I10 - Essential (primary) hypertension Qualifiers: Hypertension type: unspecified Qualified Code(s): I10 - Essential (primary) hypertension Plan: She is on lisinopril. Per PCP note, it seems that lisinopril dose has been increased. May need further increases in the future but according to son, it may also be from anxiety from the visit. Plan Total time spent including review of all the records brought by patient, counseling, documentation, coordination of care 45 minutes. Orders: Orders CA echo transthoracic complete Today I25.10 - Atherosclerotic heart disease of [place] coronary artery without angina pectoris Medications: Changed From alendronate 70 mg PO QWEEK 90 days 13 tabs 0RF To alendronate 70 mg PO QWEEK Coding Level of Care Code New Pt Level 4 (67161) Diagnoses Atherosclerotic cardiovascular disease I25.10 Hypertension, unspecified type I10 Hypertension type: unspecified CPT Codes EKG - CPT: 06575-[id number], Complete ([id number])
== END 2023-06-19 14:35 | disposition home or self-care (01) ==
PROVIDERS: PCP Nurse Practitioner Family; Visit Provider Internal Medicine
DX: I25.10 Atherosclerotic heart disease of native coronary artery without angina pectoris (principal); I10 Essential (primary) hypertension
CPT/HCPCS: 93010; 99204

== ENCOUNTER → 2023-06-19 13:51 | Outpatient (BNVA) | payer MEDICARE, SELFPAY | PROVIDERS: PCP Nurse Practitioner Family; Visit Provider Internal Medicine | DX: I25.10 Atherosclerotic heart disease of native coronary artery without angina pectoris (principal); I10 Essential (primary) hypertension | CPT/HCPCS: 93005; 99202 ==

== ENCOUNTER 2023-07-04 15:39 | Outpatient (AMB) | payer MEDICARE, SELFPAY ==
[2023-07-04 15:48] VITALS: BP 118/70; PULSE 83; RESP 14; TEMP 36.4; O2SAT 97; BMI 34.7
--- NOTE | 2023-07-04 15:53 | A.OFFPC_ITS ---
Vital Signs 07/04/23 15:48 Height 5 ft 7 in Weight 221 lb 6 oz BMI 34.7 BP 118/70 Blood Pressure Location Rt brachial Position Sitting Respiration 14 Pulse 83 Pulse Source Pulse Oximeter Temp 97.6 F Temp Source Temporal Artery Scan Pulse Oximetry (%) 97 Oxygen Delivery Method Room Air Intake Visit Reasons: Hypertension Entry Level Java Developer Required: Yes Entry Level Java Developer Name: Son Accompanied by: Son Allergies No Known Allergies Allergy (Verified 07/04/23 16:08) Medication List - Last Reconciled 07/04/23 by Fanta Zapien CNP acetaminophen (Tylenol) 650 mg (2 x 325 mg) PO Q6H PRN alendronate 70 mg PO QWEEK aspirin 81 mg PO DAILY atorvastatin 80 mg PO DAILY 90 days carvedilol 12.5 mg PO BID 90 days cholecalciferol (vitamin D3) 25 mcg PO DAILY 90 days furosemide 20 mg PO DAILY 90 days isosorbide mononitrate ER 15 mg (1/2 x 30 mg) PO DAILY 90 days lisinopril 20 mg PO DAILY 90 days Tobacco use date assessed: 06/06/23 Fall risk assessment: No Falls in past year Last assessed Fall Risk: 07/04/23 Dental Screening Dental Screen Date: 07/04/23 Did you have a dental visit in the last 12 months?: No Did you have a dental problem in the last 6 months where you did not have access to dental care?: No Was dental information given to patient?: Patient has dentist HPI HPI Comments History of Present Illness Details 72 y/o Barbadian speaking female, accompan ied by her son, presents for hypertension follow up She admits to taking her medications as prescribed without adverse reactions She reports continued pain to her left heel with walking and prolonged standing. Her symptoms have been ongoing since she rolled her left foot while walking around [place] last year. She has been taking Tylenol with some relief. She has also been applying warm/cold compresses Interpretation by the patient's son per patient's request [facility] Medical History Atherosclerotic cardiovascular disease High cholesterol HTN (hypertension) Surgical History Hx of tubal ligation Family History Brother HTN (hypertension) History of open heart surgery Father HTN (hypertension) Mother HTN (hypertension) Sister HTN (hypertension) Social History Household Members Other:: son Housing: House Patient Tobacco Use Status: Never used Tobacco e-Cigarette/Vaping Use: Never Used service: No Current occupational status: retired Cognitive needs: No Hearing needs: No Vision needs: No Questionnaire Thrive Questionnaire Date Thrive assessed: 07/22/22 ANKIT-7 AMB Questionnaire ANKIT-7 Date ANKIT - 7 assessed: 06/06/23 Source: Developed by Drs. Michele Weaver, Suly Sheets, Greg Gibbons and colleagues, with an educational jemima from [employer]. Physical exam (Primary Care) Vital Signs: Last Vital Signs Temp 97.6 F 07/04/23 15:48 Pulse 83 07/04/23 15:48 Resp 14 07/04/23 15:48 BP 118/70 07/04/23 15:48 Pulse Ox 97 07/04/23 15:48 Oxygen Delivery Method Room Air 07/04/23 15:48 BMI result Body Mass Index 34.7 Tobacco/Smoking Status: Tobacco use Status Tobacco use date assessed 06/06/23 07/04/23 15:55 Patient Tobacco Use Status Never used Tobacco 07/04/23 15:55 Tobacco use type 12/10/22 15:03 e-Cigarette/Vaping Use Never Used 07/04/23 15:55 Thrive Assessment: Date of Thrive Assessment Date Thrive assessed 07/22/22 07/04/23 15:55 Assessment and Plan Assessment & Plan (1) HTN (hypertension): Code(s): I10 - Essential (primary) hypertension Qualifiers: Hypertension type: unspecified Qualified Code(s): I10 - Essential (primary) hypertension Plan: Blood pressure is 118/70, within goal of less than 130/80 Continue current treatment regimen Low-sodium diet encouraged Will continue to monitor Follow-up in 3 months for an extended physical exam Return sooner with symptoms or concerns Verbalized understanding and agreed with treatment plan (2) Pain of left heel: Code(s): M79.672 - Pain in left foot Plan: Continued left heel pain No overt trauma or injury Continue to take Tylenol as prescribed; Warm/cold compresses as needed X-ray ordered Follow-up with worsening or new symptoms Verbalized understanding and agreed with treatment plan (3) Laboratory tests ordered as part of a complete physical exam (CPE): Code(s): Z00.00 - Encounter for general adult medical examination without abnormal findings Plan: Fasting labs ordered in preparation of a complete physical exam. Advised to fast for at least 10 hours before getting labs drawn. May drink water Verbalized understanding and agreed with treatment plan. Orders: Orders Comprehensive [place]. Panel Fast Today Z00.00 - Encounter for general adult medical examination without abnormal findings UA CC w/rflx Micro + Cult Today Z00.00 - Encounter for general adult medical examination without abnormal findings XR foot LT 2V Today M79.672 - Pain in left foot Complete Blood Count Auto Diff Today Z00.00 - Encounter for general adult medical examination without abnormal findings TSH reflex Free T4 Today Z00.00 - Encounter for general adult medical examination without abnormal findings Vitamin D 25-OH Total Today Z00.00 - Encounter for general adult medical examination without abnormal findings Coding Level of Care Code Est Pt Level 4 (62184) Diagnoses Hypertension, unspecified type I10 Hypertension type: unspecified Pain of left heel M79.672 Laboratory tests ordered as part of a complete physical exam (CPE) Z00.00
== END 2023-07-04 16:31 | disposition home or self-care (01) ==
PROVIDERS: PCP Nurse Practitioner Family; Visit Provider Nurse Practitioner Family
DX: I10 Essential (primary) hypertension (principal); M79.672 Pain in left foot; Z00.00 Encounter for general adult medical examination without abnormal findings
CPT/HCPCS: 99214

== ENCOUNTER 2023-07-21 10:19 | Outpatient (REF) | payer OTHER, SELFPAY ==
--- NOTE | ~2023-07-21 | XR_ITS ---
EXAMINATION: XR FOOT, LEFT CLINICAL INFORMATION: Pain in left foot. COMPARISON: None available. TECHNIQUE: AP, lateral, and oblique views of the left foot. FINDINGS: The bones are diffusely demineralized. Moderate plantar and posterior calcaneal spurs. Mild degenerative changes in the interphalangeal joints of the toes. Minimal degenerative changes in the 1st metatarsophalangeal joint. No displaced fracture identified. XR/XR foot LT 2V IMPRESSION: Diffuse demineralization. No displaced fracture. Recommend follow-up imaging in 10-14 days if fracture is suspected.
== END 2023-07-21 10:20 | disposition home or self-care (01) ==
LOC: HO.HMGCX 10:19
PROVIDERS: PCP Nurse Practitioner Family; Visit Provider Nurse Practitioner Family
DX: M79.672 Pain in left foot (principal)
CPT/HCPCS: 73620

== ENCOUNTER → 2023-10-10 14:19 | Outpatient (REF) | payer OTHER, SELFPAY ==
--- NOTE | 2023-10-10 14:26 | CA_ITS ---
Transthoracic Echocardiogram Patient (Last, First, Middle): Mariann Brown, Gender: Female Date of : 1950 Age: 72 Procedure Date: 10/10/2023 Procedure Type: Transthoracic Echocardiogram Location: OP Height: 170. cm Weight: 99.79 kg BSA: 2.10 m2 Heart Rate: 61 bpm BP: 145 / 80 mmHg Gastroenterology Manager: BELEN Krueger MD: Ariel Montgomery MD Nematologist: Amish Solis MD Symptoms: I25.10 - Atherosclerotic heart disease of [place] coronary artery without... Study Quality: Fair ECG Rhythm: Sinus Conclusions: - 1. Normal LV ejection fraction 55-60% with mild LVH with impaired relaxation filling pattern 2. Mildly dilated left atrium 3. Moderate mitral calcification with no significant abnormality of cardiac valvular Dopplers 4. Mildly dilated ascending aorta 5. Normal RV systolic pressure 6. No gross pericardial effusion Findings Left Ventricle Normal left ventricular size and systolic function. There is mildly increased left ventricular wall thickness. The visually estimated ejection fraction is between 55-60%. Spectral Doppler is indicative of an impaired relaxation filling pattern. E/E prime ratio is between 8 and 15 consistent with indeterminate filling pressures. Peak GLS is -14.6%, moderately reduced. Wall Motion Rest Echo Findings The basal inferoseptal segment is hypokinetic. The basal inferior segment is akinetic. All other scored wall segments showed normal motion. Right Ventricle Normal right ventricular cavity size and systolic function. Atria The left atrium is mildly dilated. Interatrial shunt cannot be excluded. The right atrium was not well visualized. Aortic Valve The aortic valve was not well visualized. There is mild calcification of the aortic valve. There is no aortic valve stenosis. There is no aortic valve regurgitation. Mitral Valve There is mild anterior and moderate posterior mitral leaflet thickening. There is moderate mitral annular calcification. There is trace mitral valve regurgitation. There is no mitral valve stenosis. Pulmonic Valve The pulmonic valve was not well visualized. Tricuspid Valve Likely normal tricuspid valve structure and function. There is trace tricuspid valve regurgitation. The right ventricular systolic pressure is normal. The right ventricular systolic pressure is 24 mmHg. Normal right atrial pressure. There is no evidence of pulmonary hypertension. Great Vessels The pulmonary artery was not well visualized. There is mild dilatation of the ascending aorta measuring 3.70 cm. Small plaque is seen in the sino tubular ridge. Venous The inferior vena cava is normal in size and collapses greater than 50% with inspiration. Pericardium/Pleural There is no evidence of pericardial effusion. Prior Study Comparison No prior study available for comparison. Measurements 2D Linear Measurements IVSd: 1.23 0.6-0.9/0.6-1.0 cm LVIDd: 4.70 3.9-5.3/4.2-5.9 cm LVIDd Index: 2.24 2.4-3.2/2.2-3.1 cm/m2 LVIDs: 3.25 2.0-3.6 cm LVPWd: 1.10 0.7-1.1 cm LA Diam: 4.40 2.7-3.8/3.0-4.0 cm LAIDs Index: 2.10 1.5-2.3 cm/m2 LV Mass: 253.35 67-162/88-224 g LV Mass Index: 120.64 43-95/49-115 g/m2 LVOT Diam: 2.00 3.0+(-)1.3 cm 2D Systolic Function EF 4C: 58.50 >55% EF 2C: 58.00 >55% EF BiP: 59.60 >55% Mitral Valve MV Pk E: 1.04 MV PK A: 1.12 MV Decel Time: 232.00 E/A: 0.90 E'Lateral: 6.20 E'Medial: 5.87 E/E' Med: 17.70 E/E' Lat: 16.80 PHT: 68.00 MVA PHT: 3.24 Decel [place]: 4.48 Aortic Valve AoV Pk Eric: 1.58 AoV Mn Eric: 1.09 AoV VTI: 0.38 AoV Pk Grad: 10.00 Aov Mn Grad: 6.00 MARCIE Cont.VTI: 2.18 LVOT LVOT Pk Eric: 1.16 LVOT Mn Eric: 0.76 LVOT VTI: 0.27 LVOT Pk Grad: 5.00 LVOT Mn Grad: 3.00 LVOT Diam: 2.00 LVOT Area: 3.14 Diastolic Function MV Pk E: 1.04 MV Pk A: 1.12 E/A: 0.90 E'Medial: 5.87 E/E' Med: 17.70 E' Laterial: 6.20 E/E' Lat: 16.80 Right Ventricle TAPSE (mm): 20.30 TVS' Eric: 12.80 Tricuspid Valve TR Pk Eric: 2.30 TR Pk Grad: 21.00 RA Press: 3.00 RVSP: 24.00 Great Vessels Aorta Sinus of Valsalva: 3.20 2.0-3.5 cm Ao Asc: 3.70 2.1-3.4 cm Pulmonary Valve PV Pk Eric: 1.06 Peak PV Grad: 4.00 Updated in Other Vendor System with Status of Final Amish Solis MD electronically signed on 10/11/2023 4:08:04 PM with status of Final
== END ==
LOC: HO.CARD 14:19
PROVIDERS: PCP Family Medicine; Visit Provider Internal Medicine
DX: I25.10 Atherosclerotic heart disease of native coronary artery without angina pectoris (principal)
CPT/HCPCS: 93306; 93356

== ENCOUNTER → 2023-10-10 14:26 | Outpatient (BNV) | payer OTHER, SELFPAY | PROVIDERS: PCP Family Medicine; Visit Provider Internal Medicine Cardiovascular Disease | DX: I25.10 Atherosclerotic heart disease of native coronary artery without angina pectoris (principal); I35.8 Other nonrheumatic aortic valve disorders; I34.81 Nonrheumatic mitral (valve) annulus calcification; R93.1 Abnormal findings on diagnostic imaging of heart and coronary circulation | CPT/HCPCS: 93306; 93356 ==

== ENCOUNTER 2023-10-16 06:52 | Outpatient (REF) | payer OTHER, SELFPAY ==
[2023-10-16 10:29] LABS: MANUAL DIFF FLAG NO
[2023-10-16 10:39] LABS: Basophils Absolute Auto 0.1 X10*3/uL (0.0-0.2); Basophils Percent Auto 0.6 % (0-2); Eosinophils Absolute Auto 0.2 X10*3/uL (0.0-0.4); Eosinophils Percent Auto 2.3 % (0-4); Hematocrit 39.5 % (37.0-47.0); Imm Gran Abs Auto 0.02 X10*3/uL (0.00-0.03); Imm Gran Pct Auto 0.2 % (0.0-0.4); Lymphocytes Absolute Auto 3.2 X10*3/uL (1.2-4.9); Mean Corpuscular HGB Conc 30.4 g/dl (31.0-35.0); Mean Corpuscular Hemoglobin 27.3 pg (27.0-33.0); Mean Platelet Volume 13.4 fL (9.4-12.3); Monocytes Absolute Auto 0.8 X10*3/uL (0.1-1.2); Monocytes Percent Auto 8.8 % (2-11); Neutrophils Absolute Auto 4.5 x10*3/uL (2.0-8.3); Neutrophils Percent Auto 51.1 % (45-73); Platelet Count 210 X10*3/uL (160-400); Red Blood Count 4.39 X10*6/uL (4.20-5.50); Red Cell Distribution Width 14.1 % (11.0-16.0); White Blood Count 8.7 X10*3/uL (4.8-10.8)
[2023-10-16 10:49] LABS: Alanine Aminotransferase 29 U/L (0-31); Albumin Level 3.8 g/dL (3.5-5.0); Alkaline Phosphatase 67 U/L (39-117); Anion Gap 13 (12-20); Aspartate Amino Transferase 23 U/L (5-31); Bilirubin Total 0.9 mg/dL (0.0-1.0); Blood Urea Nitrogen 21 mg/dL (9-16); Calcium 9.1 mg/dL (8.4-10.2); Carbon Dioxide 25 mmol/L (22-29); Chloride 108 mmol/L (96-108); Estimated Glomerular Filt Rate > 60; Glucose Fasting 152 mg/dL (60-99); Potassium 4.2 mmol/L (3.3-5.1); Sodium 142 mmol/L (135-145); Total Protein 7.7 g/dL (6.5-8.0)
[2023-10-16 11:10] LABS: TSH reflex Free T4 0.77 uIU/mL (0.32-4.0); Vitamin D 25-OH Total 57.6 ng/mL (>30)
== END 2023-10-16 06:53 | disposition home or self-care (01) ==
LOC: HO.HMGCLDS 06:52
PROVIDERS: PCP Family Medicine; Visit Provider Nurse Practitioner Family
DX: Z00.00 Encounter for general adult medical examination without abnormal findings (principal)
CPT/HCPCS: 36415; 80053; 82306; 84443; 85025

== ENCOUNTER 2023-10-17 06:43 | Outpatient (REF) | payer OTHER, SELFPAY ==
[2023-10-17 10:46] LABS: Appearance Urine Turbid; Color Urine Yellow; Glucose Urine UA Negative (Negative); Leukocyte Esterase Urine Negative (Negative); Nitrite Urine Negative (Negative); PH 5.5 (5.0-9.0); Specific Gravity - Urine 1.025 (1.005-1.025); UMIC TRIGGER UACC YES; Urine Blood Small (1+) (Negative); Urine Ketones Negative (Negative); Urine Protein Negative (Neg-Trace)
[2023-10-17 11:09] LABS: Bacteria Urine None Seen (None Seen); Hyaline Casts Urine 0-2 /LPF (0-2); RBC Urine 0-2 /HPF (0-2); WBC Urine 0-5 /HPF (0-5)
== END 2023-10-17 06:44 | disposition home or self-care (01) ==
LOC: HO.HMGCLDS 06:43
PROVIDERS: PCP Family Medicine; Visit Provider Nurse Practitioner Family
DX: Z00.00 Encounter for general adult medical examination without abnormal findings (principal)
CPT/HCPCS: 81001

== ENCOUNTER 2023-10-21 15:58 | Outpatient (AMB) | payer MEDICARE, SELFPAY ==
[2023-10-21 15:59] VITALS: BP 116/70; PULSE 84; RESP 14; TEMP 36.3; O2SAT 97; BMI 35.9
--- NOTE | 2023-10-21 15:59 | A.OFFPC_ITS ---
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 Gas Required: No Accompanied by: Son Allergies No Known Allergies Allergy (Verified 10/21/23 16:16) Medication List - Last Reconciled 10/21/23 by Fanta Zapien CNP acetaminophen (Tylenol) 650 mg (2 x 325 mg) PO Q6H PRN alendronate 70 mg PO QWEEK aspirin 81 mg PO DAILY atorvastatin 80 mg PO DAILY 90 days carvedilol 12.5 mg PO BID 90 days cholecalciferol (vitamin D3) 25 mcg PO DAILY 90 days furosemide 20 mg PO DAILY 90 days isosorbide mononitrate ER 15 mg (1/2 x 30 mg) PO DAILY 90 days lisinopril 20 mg PO DAILY 90 days Tobacco use date assessed: 10/21/23 Fall risk assessment: No Falls in past year Last assessed Fall Risk: 10/21/23 Dental Screening Dental Screen Date: 10/21/23 Did you have a dental visit in the last 12 months?: No Did you have a dental problem in the last 6 months where you did not have access to dental care?: No Was dental information given to patient?: Patient has dentist HPI HPI Comments History of Present Illness Details 73-year-old Irish-speaking female, acc ompanied by her son, presents for an extended physical exam She has history of hypertension, hyperlipidemia, vitamin-D deficiency, osteopeni a, coronary artery disease, chronic back and right knee pain, anxiety, and depression She admits to taking her medications as prescribed without adverse reactions She offers no complaints and denies acute symptoms at this time Last DEXA scan was on 11/22/2022: Osteopenia Last mammogram was on 11/22/2022: Normal Last Pap smear test was on 11/17/2018: Normal She notes that her last colonoscopy 2 years ago in [place]: normal. She notes she will bring record to the office She is unsure about shingles or pneumonia vaccines status. She has records and will bring them in She is up-to-date on the flu vaccine She notes that her last eye exam was 2 years ago. She is currently looking for an booster pump oiler who is close to her home and will inform her PCP if she needs assistance with a referral Her last dental care was over a ago. She has a dental appointment scheduled in November Interpretation by the patient's son per patient's preference [facility] Medical History Atherosclerotic cardiovascular disease High cholesterol HTN (hypertension) Surgical History Hx of tubal ligation Family History Brother HTN (hypertension) History of open heart surgery Father HTN (hypertension) Mother HTN (hypertension) Sister HTN (hypertension) Social History Household Members: None Household Members Other:: son Both parents involved: No Caregiver staying overnight: No Housing: House Are you a primary spiritual care coordinator to a significant other at home: No Do you presently have visiting nurse or other home services: No 75 years or older and lives alone: No Alcohol intake: never Patient Tobacco Use Status: Never used Tobacco e-Cigarette/Vaping Use: Never Used service: No Current occupational status: retired Cognitive needs: No Hearing needs: No Vision needs: No Questionnaire PHQ-9 Over the last 2 weeks, how often have you been bothered by any of the following problems? 1. Little interest or pleasure in doing things: not at all 2. Feeling down, depressed, or hopeless: not at all 3. Trouble falling or staying asleep, or sleeping too much: not at all 4. Feeling tired or having little energy: not at all 5. Poor appetite or overeating: not at all 6. Feeling bad about yourself - or that you are a failure or have let yourself or your family down: not at all 7. Trouble concentrating on things, such as reading the newspaper or watching television: not at all 8. Moving or speaking so slowly that other people could have noticed. Or the opposite - being so fidgety or restless that you have been moving around a lot more than usual: not at all 9. Thoughts that you would be better off or of hurting yourself in some way: not at all Total score: 0 Depression Screening Interpretation: Negative Depression Screening Done: Yes 09943 - PHQ-9 Billing: Yes Source: Developed by Drs. Michele Weaver, Suly Sheets, Greg Gibbons and colleagues, with an educational jemima from [employer]. Thrive Questionnaire Date Thrive assessed: 07/22/22 What is your living situation today?: I have a steady place to live Within the past 12 months, did the food you bought not last and you didn't have the money to get more?: Never true Within the past 12 months, did you worry whether your food would run out before you got money to buy more?: Never true Do you have trouble paying for medicines?: No Do you have trouble getting transportation to medical appointments?: No Do you have trouble paying your heating and electricity bill?: No Do you have trouble taking care of your child, family member or friend?: No Do you have trouble with day-to-day activities such as bathing, preparing meals, shopping, managing finances, etc.?: No Are you currently unemployed and looking for a job?: No Are you interested in more education?: No Please select the resources that you would like help with: None Currently or been in a relationship where the following occur: no concerns reported THRIVE Score: 0 AUDIT C Alcohol Use Questionnaire (AUDIT-C) 1. How often do you have a drink containing alcohol?: Never 3. How often do you have six or more drinks on one occasion?: Never Total Score: 0 ANKIT-7 AMB Questionnaire ANKIT-7 Date ANKIT - 7 assessed: 10/21/23 Feeling nervous, anxious, or on edge: 0 = Not at all Not being able to stop or control worryin = Not at all Worrying too much about different things: 0 = Not at all Trouble relaxin = Not at all Being so restless that it is hard to sit still: 0 = Not at all Becoming easily annoyed or irritable: 0 = Not at all Feeling afraid as if something awful might happen: 0 = Not at all Total ANKIT-7 score (0-4 normal; 5-9 mild; 10-14 moderate; 15-21 severe): 0 Source: Developed by Suly Reeves Sudeep, Greg Gibbons and colleagues, with an educational jemima from [employer]. ANKIT-7 Assessment Billing ANKIT-7 Assessment Tool: ANKIT-7 Assessment [id number] Review of Systems Const Details: Denies chills, Denies fatigue, Denies fever(s), Denies headache(s) and Denies weakness HEENT Denies change in vision, Denies dizziness, Denies headache(s), Denies hearing loss, Denies nasal congestion, Denies sinus pain, Denies sinus pressure and Denies sore throat Card Denies chest pain, Denies lightheadedness, Denies dyspnea and Denies other (palpitations) Resp Denies cough, Denies dyspnea and Denies wheezing GI Denies abdominal pain, Denies melena, Denies hematochezia, Denies change in bowel habits, Denies dyspepsia and Denies nausea Denies hematuria and Denies dysuria Musc Denies abnormal gait, Denies myalgias, Denies arthralgias, Denies numbness and Denies tingling Skin/Breast Denies rash, Denies unusual bruising and Denies wounds Neuro Denies abnormal gait, Denies dizziness, Denies headache(s), Denies memory loss, Denies numbness, Denies Sensory deficit (Neuro), Denies tingling and Denies weakness Psych Denies anxiety, Denies depression and Denies memory loss Endo Denies cold intolerance, Denies fatigue, Denies heat intolerance, Denies polydipsia and Denies polyuria Heath/Lymph Denies easy bleeding and Denies easy bruising Aller/Immun Denies wheezing Physical exam (Primary Care) Vital Signs: Last Vital Signs Temp 97.3 F 10/21/23 15:59 Pulse 84 10/21/23 15:59 Resp 14 10/21/23 15:59 BP 116/70 10/21/23 15:59 Pulse Ox 97 10/21/23 15:59 Oxygen Delivery Method Room Air 10/21/23 15:59 BMI result Body Mass Index 35.9 Tobacco/Smoking Status: Tobacco use Status Tobacco use date assessed 10/21/23 10/21/23 16:08 Patient Tobacco Use Status Never used Tobacco 10/21/23 16:08 Tobacco use type 12/10/22 15:03 e-Cigarette/Vaping Use Never Used 10/21/23 16:08 PHQ-9: PHQ-9 Score PHQ-9: Total score 0 10/21/23 16:09 Depression Screening Interpretation: Negative Thrive Assessment: Date of Thrive Assessment Date Thrive assessed 07/22/22 10/21/23 16:08 Currently or been in a relationship where the following occur: no concerns reported Const Other: General: no acute distress, well developed, alert and awake Nutritional Appearance: well nourished Orientation/consciousness: patient oriented x3 [facility] Head: Yes normocephalic and Yes atraumatic Ears: hearing grossly normal bilaterally and TM's normal bilaterally General nose exam: Normal external nose present and Normal nares present Mouth: Normal oral and palatal mucosa present and moist mucous membranes Teeth and gingiva: dentition normal Throat: Yes oropharynx normal Eyes Pupils: Equal, round and reactive pupils present and Pupil accommodation reflex normal EOM: EOMs intact bilaterally Neck Neck: Yes normal visual inspection, Yes no lymphadenopathy and Yes trachea midl ine Thyroid: Thyroid normal Carotids: no bruits Lymphatic: no lymphadenopathy noted Chest Chest palpation & inspection: normal inspection of the chest Resp Effort & Inspection: normal respiratory effort Auscultation: clear to auscultation bilaterally Cardio Rate: regular rate Rhythm: regular rhythm Heart sounds: S1 normal heart sound present, S2 normal heart sound present, no gallops, no murmurs and no rubs Bruits: no abdominal aortic bruits and no carotid bruits GI Palpation (GI): No Abdominal aortic bruit present, Soft to palpation, nontender, No hepatosplenomegaly present and No Rebound tenderness present Auscultation: normal bowel sounds General: Yes no CVA tenderness Back/Spine/Pelvis Back: no CVA tenderness Cervical Spine: cervical ROM normal and No Cervical spine tenderness Thoracic/Lumbar Spine: thoraco-lumbar ROM normal, No pain with thoraco-lumbar ROM, thoracic spinal tenderness and No lumbar spinal tenderness Skin General: warm and dry. Normal skin color. Normal skin turgor Lesions: no lesions Rashes: no rashes Trauma: no lacerations or abrasions Wounds: no wounds Nails: normal Neuro General: patient oriented x3, gait normal and CN's II-XI intact bilaterally Cranial nerves: Yes Equal, round and reactive pupils present Cognition (Neuro): normal cognition Gait exam (Neuro): Normal gait present Motor exam (neuro): 5/5 motor strength present throughout Sensory Exam: No Sensory deficit (Neuro) Deep tendon reflexes (DTR's): Right patellar reflex intensity grade: 2+ and Left patellar reflex intensity grade: 2+ Extrem General: Yes normal to inspection, No edema and No calf tenderness Psych Appearance: grossly normal Affect: normal affect Attitude: cooperative Thought process: Normal thought process present Results AMB Hemoglobin A1c AMB Hemoglobin A1c 6.5 % Last Edit by RIVAS Britton on 10/21/23 16:4 9 Assessment and Plan Assessment & Plan (1) Normal physical examination, routine: Code(s): Z00.00 - Encounter for general adult medical examination without abnormal findings Plan: No significant physical restrictions or limitations noted Continue current treatment regimen Healthy diet and routine exercise encouraged She will bring colonoscopy and shingles and pneumonia immunization records at her next visit Follow-up in 3 months for hypertension and diabetes or return sooner with symptoms or concerns Verbalized understanding and agreed with the treatment plan (2) HTN (hypertension): Code(s): I10 - Essential (primary) hypertension Qualifiers: Hypertension type: unspecified Qualified Code(s): I10 - Essential (primary) hypertension Plan: Blood pressure is 116/70, within goal of less than 140/90 Continue current treatment regimen Low-sodium diet encouraged Follow-up in 3 months Verbalized understanding and agreed with the plan (3) Hyperlipidemia: Code(s): E78.5 - Hyperlipidemia, unspecified Plan: Her last lipid panel blood work was in March 2023; normal findings except for slightly low HDL Will recheck lipid panel Continue current treatment regimen Advised to limit foods high in saturated fat and avoid foods high in trans fat Routine exercise encouraged Verbalized understanding and agreed with the plan (4) Back pain: Code(s): M54.9 - Dorsalgia, unspecified Qualifiers: Back pain location: thoracic back pain Plan: Thoracic spinal tenderness. No overt trauma or injury Tylenol as prescribed Warm/cool compresses encouraged Follow-up with symptoms or concerns Verbalized understanding and agreed with the plan (5) History of osteoporosis: Code(s): Z87.39 - Personal history of other diseases of the musculoskeletal system and connective tissue Plan: On alendronate 70 mg weekly (6) Type 2 diabetes mellitus: Code(s): E11.9 - Type 2 diabetes mellitus without complications Plan: Recent fasting glucose is elevated A1c today is 6.5% ADA diet and routine exercise encouraged. Encouraged to limit carbs such as rice, bread, pasta, potatoes Will recheck A1c in 3 months. Will check microalbumin/creatinine ratio Verbalized understanding and agreed with treatment plan Orders: Orders Microalbumin, Random (w Creat) Today E78.5 - Hyperlipidemia, unspecified Lipid Panel Today E78.5 - Hyperlipidemia, unspecified AMB Hemoglobin A1c Today R73.01 - Impaired fasting glucose Coding Level of Care Code Est Pt Level 4 (00869) Est Pt Prev Care >65y(63637) Diagnoses Normal physical examination, routine Z00.00 Hypertension, unspecified type I10 Hypertension type: unspecified Hyperlipidemia E78.5 Back pain M54.9 Back pain location: thoracic back pain History of osteoporosis Z87.39 Type 2 diabetes mellitus E11.9 Additional Codes ANKIT-7 Assessment Billing - ANKIT-7 Assessment Tool: ANKIT-7 Assessment [id number] ([id number])
== END 2023-10-21 17:02 | disposition home or self-care (01) ==
PROVIDERS: PCP Nurse Practitioner Family; Visit Provider Nurse Practitioner Family
DX: Z00.00 Encounter for general adult medical examination without abnormal findings (principal); E11.69 Type 2 diabetes mellitus with other specified complication; I10 Essential (primary) hypertension; E78.5 Hyperlipidemia, unspecified; M54.9 Dorsalgia, unspecified; Z87.39 Personal history of other diseases of the musculoskeletal system and connective tissue; R73.01 Impaired fasting glucose
CPT/HCPCS: 83036; 99397

== ENCOUNTER 2023-12-03 14:07 | Outpatient (REF) | payer OTHER, SELFPAY ==
--- NOTE | ~2023-12-03 | MM_ITS ---
EXAMINATION: MM SCREENING DIGITAL BREAST TOMOSYNTHESIS, BILATERAL CLINICAL INFORMATION: Screening. Asymptomatic. COMPARISON: Mammography: This study is compared with prior exams dating back to 2022. TECHNIQUE: Digital breast tomosynthesis is performed in both the craniocaudal and mediolateral oblique views along with computer-aided detection (CAD). Synthesized 2D images are generated from the tomosynthesis. FINDINGS: There are scattered areas of fibroglandular density (ACR BI-RADS breast composition Category b). There are no significant masses, abnormal calcifications, or other abnormalities. MM/MM tomosynthesis screening BI IMPRESSION: No mammographic evidence of malignancy. ASSESSMENT: BI-RADS BI-RADS 1 - Negative RECOMMENDATION: Routine annual mammography screening. 1 year F/U This examination should not preclude the clinical evaluation of a suspicious palpable abnormality. This patient's information was entered into a reminder system with a target due date for their next mammogram.
== END 2023-12-03 14:08 | disposition home or self-care (01) ==
LOC: HO.MAMMO 14:07
PROVIDERS: PCP Family Medicine; Visit Provider Family Medicine
DX: Z12.31 Encounter for screening mammogram for malignant neoplasm of breast (principal)
CPT/HCPCS: 77063; 77067

== ENCOUNTER → 2023-12-03 14:15 | Outpatient (BNV) | payer OTHER, SELFPAY | PROVIDERS: PCP Family Medicine; Visit Provider Radiology Diagnostic Radiology | DX: Z12.31 Encounter for screening mammogram for malignant neoplasm of breast (principal) | CPT/HCPCS: 77063; 77067 ==

== ENCOUNTER 2023-12-17 12:55 | Outpatient (AMB) | payer MEDICARE, SELFPAY ==
--- NOTE | 2023-12-17 13:06 | A.OFFVIS_ITS ---
Vital Signs 12/17/23 13:07 Height 5 ft 7 in Weight 230 lb 9.656 oz BMI 36.1 BP 136/72 Blood Pressure Location Lt brachial Position Sitting Pulse 87 Pulse Source Pulse Oximeter Intake Visit Reasons: 6 month f/u Small Offset Printer Required: No Small Offset Printer Services: Small Offset Printer Present Small Offset Printer Name: Berry Accompanied by: Son Allergies No Known Allergies Allergy (Verified 10/21/23 16:16) Medication List - Last Reconciled 12/17/23 by Ariel Montgomery MD acetaminophen (Tylenol) 650 mg (2 x 325 mg) PO Q6H PRN aspirin 81 mg PO DAILY atorvastatin 80 mg PO DAILY 90 days carvedilol 12.5 mg PO BID 90 days cholecalciferol (vitamin D3) 25 mcg PO DAILY 90 days furosemide 20 mg PO DAILY 90 days isosorbide mononitrate ER 15 mg (1/2 x 30 mg) PO DAILY 90 days lisinopril 20 mg PO DAILY 90 days HPI Comments Details: Mariann returns for follow-up. She carries a diagnosis of coronary artery disease and LAD stenting from [place]. It seems that around 2019, she was complaining of exertional chest pain. Echocardiogram had shown evidence of wall motion abnormalities along the LAD distribution. Then it seems that she underwent an exercise stress perfusion imaging study that was positive with inducible ischemia again in the LAD territory. Followed by cardiac catheterization that found 99% mid LAD stenosis requiring stenting. After that, it seems she got better. Overall, she feels quite good. No complaints like angina or shortness of breath or in fact anything cardiac sounding. She does not use any sublingual nitroglycerin either. [facility] Medical History Atherosclerotic cardiovascular disease High cholesterol HTN (hypertension) Surgical History Hx of tubal ligation Family History Brother HTN (hypertension) History of open heart surgery Father HTN (hypertension) Mother HTN (hypertension) Sister HTN (hypertension) Social History Household Members: None Household Members Other:: son Both parents involved: No Caregiver staying overnight: No Housing: House Are you a primary neonatal intensive care unit nurse to a significant other at home: No Do you presently have visiting nurse or other home services: No 75 years or older and lives alone: No Alcohol intake: never Patient Tobacco Use Status: Never used Tobacco e-Cigarette/Vaping Use: Never Used service: No Current occupational status: retired Cognitive needs: No Hearing needs: No Vision needs: No Review of Systems Const Denies chills, Denies fatigue, Denies fever(s), Denies weight gain and Denies weight loss ENT Denies dizziness Card Denies chest pain, Denies leg edema, Denies lightheadedness, Denies palpitations, Denies dyspnea on exertion, Denies orthopnea and Denies other Resp Denies cough and Denies dyspnea on exertion GI Denies hematochezia and Denies change in stool character Musc Denies abnormal gait, Denies muscle weakness, Denies numbness, Denies radiating pain into limb and Denies tingling Neuro Denies abnormal gait, Denies dizziness, Denies numbness and Denies tingling Endo Denies fatigue and Denies palpitations Physical Exam Vital Signs: Last Vital Signs Pulse 87 12/17/23 13:07 BP 136/72 12/17/23 13:07 BMI result Body Mass Index 36.1 Const General: comfortable and no acute distress Orientation/consciousness: patient oriented x3 HEENT Other: Unremarkable Head: Yes normal to inspection Neck Neck: Yes normal visual inspection Chest Chest palpation & inspection: normal inspection of the chest Resp Auscultation: clear to auscultation bilaterally Cardio Palpation: normal PMI Heart sounds: S1 normal heart sound present, S2 normal heart sound present, no gallops, no murmurs and no rubs GI Palpation (GI): Soft to palpation Back/Spine/Pelvis Other: unremarkable Skin General skin exam: no rashes or lesions noted Neuro General: patient oriented x3 Extrem General: Yes normal to inspection Psych Mental Status: mental status grossly normal Assessment & Plan Assessment & Plan (1) Atherosclerotic cardiovascular disease: Code(s): I25.10 - Atherosclerotic heart disease of [place] coronary artery without angina pectoris Category: Medical Plan: Status post LAD PCI in 2019. She is free of angina. Continue long-term aspirin. Continue beta-blockers and statins. LDL cholesterol level 75 mg/dL. Triglycerides 125 mg/dL. In the echocardiogram, LVEF 55-60%; basal inferior akinesis and basal inferoseptal hypokinesis. Clinically, in the absence of angina, we will monitor her on medical therapy. (2) HTN (hypertension): Code(s): I10 - Essential (primary) hypertension Category: Medical Qualifiers: Hypertension type: unspecified Qualified Code(s): I10 - Essential (primary) hypertension Plan: On carvedilol/lisinopril. Blood pressure seems okay. Coding Level of Care Code Est Pt Level 3 (77497) Diagnoses Atherosclerotic cardiovascular disease I25.10 Hypertension, unspecified type I10 Hypertension type: unspecified
[2023-12-17 13:07] VITALS: BP 136/72; PULSE 87; BMI 36.1
== END 2023-12-17 13:52 | disposition home or self-care (01) ==
PROVIDERS: PCP Nurse Practitioner Family; Visit Provider Internal Medicine
DX: I25.10 Atherosclerotic heart disease of native coronary artery without angina pectoris (principal); I10 Essential (primary) hypertension
CPT/HCPCS: 99213

== ENCOUNTER → 2023-12-17 12:55 | Outpatient (BNVA) | payer MEDICARE, SELFPAY | PROVIDERS: PCP Nurse Practitioner Family; Visit Provider Internal Medicine | DX: I25.10 Atherosclerotic heart disease of native coronary artery without angina pectoris (principal); I10 Essential (primary) hypertension | CPT/HCPCS: 99212 ==

== ENCOUNTER 2024-01-17 10:22 | Outpatient (REF) | payer MEDICARE, SELFPAY ==
[2024-01-17 11:43] LABS: Cholesterol 115 mg/dL (<200); HDL Cholesterol 36 mg/dL (>40); LDL Cholesterol Calculated 58 mg/dL (<100); Triglycerides 106 mg/dL (<150)
[2024-01-17 11:47] LABS: Creatinine Urine 247.02 mg/dL; Microalbum/Creatinine Ratio Ur 27.1 ug/mg cr (<30)
== END 2024-01-17 10:23 | disposition home or self-care (01) ==
LOC: HO.HMGCLDS 10:22
PROVIDERS: PCP Nurse Practitioner Family; Visit Provider Nurse Practitioner Family
DX: E78.5 Hyperlipidemia, unspecified (principal)
CPT/HCPCS: 36415; 80061; 82043; 82570

== ENCOUNTER 2024-01-23 15:44 | Outpatient (AMB) | payer MEDICARE, SELFPAY ==
--- NOTE | 2024-01-23 15:49 | A.OFFPC_ITS ---
Vital Signs 01/23/24 15:56 01/23/24 16:12 Height 5 ft 7 in Weight 231 lb 2 oz BMI 36.2 BP 154/80 H 148/90 H Blood Pressure Location Rt brachial Rt brachial Position Sitting Sitting Respiration 16 Pulse 69 Pulse Source Pulse Oximeter Temp 98.3 F Temp Source Oral Pulse Oximetry (%) 96 Oxygen Delivery Method Room Air Intake Visit Reasons: FU DM HTN Intake Note: patient here to follow up on DM and HTN. Software Quality Specialist Required: Yes Software Quality Specialist Language: Ivorian Accompanied by: Son Is last menstrual period known: No Post menopausal: No Patient : No Allergies No Known Allergies Allergy (Verified 01/23/24 16:03) Medication List - Last Reconciled 01/23/24 by Fanta Zapien CNP acetaminophen (Tylenol) 650 mg (2 x 325 mg) PO Q6H PRN aspirin 81 mg PO DAILY atorvastatin 80 mg PO DAILY 90 days carvedilol 12.5 mg PO BID 90 days cholecalciferol (vitamin D3) 25 mcg PO DAILY 90 days furosemide 20 mg PO DAILY 90 days isosorbide mononitrate ER 15 mg (1/2 x 30 mg) PO DAILY 90 days lisinopril 20 mg PO DAILY 90 days Tobacco use date assessed: 01/23/24 Fall risk assessment: No Falls in past year Last assessed Fall Risk: 01/23/24 Dental Screening Dental Screen Date: 10/21/23 HPI HPI Comments History of Present Illness Details 73-year-old female, accompanied by her s on, presents for hypertension and diet controlled diabetes follow-up She admits to taking her medications as prescribed without adverse reactions She continues to consume significant amounts of carbs. However, she has been maintaining a low-sodium diet. She has not been exercising She offers no complaints and denies acute symptoms at this time Interpretation by the patient's son per patient's preference [facility] Medical History Atherosclerotic cardiovascular disease High cholesterol HTN (hypertension) Surgical History Hx of tubal ligation Family History Brother HTN (hypertension) History of open heart surgery Father HTN (hypertension) Mother HTN (hypertension) Sister HTN (hypertension) Social History Household Members: None Household Members Other:: son Both parents involved: No Caregiver staying overnight: No Housing: House Are you a primary skin care technician to a significant other at home: No Do you presently have visiting nurse or other home services: No 75 years or older and lives alone: No Alcohol intake: never Patient Tobacco Use Status: Never used Tobacco e-Cigarette/Vaping Use: Never Used service: No Current occupational status: retired Cognitive needs: No Hearing needs: No Vision needs: No Questionnaire Thrive Questionnaire Date Thrive assessed: 07/22/22 ANKIT-7 AMB Questionnaire ANKIT-7 Date ANKIT - 7 assessed: 10/21/23 Source: Developed by Drs. Michele Weaver, Suly Sheets, Greg Gibbons and colleagues, with an educational jemima from [employer]. Review of Systems Const Details: Const Denies chills, Denies fatigue, Denies fever(s), Denies headache(s) and Denies weakness ENT Denies dizziness and Denies headache(s) Card Denies chest pain, Denies lightheadedness, Denies dyspnea and Denies other (Palpitations) Resp Denies cough, Denies dyspnea, Denies wheezing and Denies other ( shortness of breath) GI Denies abdominal pain, Denies melena, Denies hematochezia, Denies change in bowel habits, Denies dyspepsia and Denies nausea Denies hematuria and Denies dysuria Musc Denies abnormal gait, Denies myalgias, Denies arthralgias, Denies numbness and Denies tingling Skin/Breast Denies rash, Denies unusual bruising and Denies wounds Neuro Denies abnormal gait, Denies dizziness, Denies headache(s), Denies memory loss, Denies numbness, Denies Sensory deficit (Neuro), Denies tingling and Denies weakness Psych Denies anxiety, Denies depression, Denies memory loss Endo Denies cold intolerance, Denies fatigue, Denies heat intolerance, Denies polydipsia and Denies polyuria Aller/Immun Denies wheezing Physical exam (Primary Care) Tobacco/Smoking Status: Tobacco use Status Tobacco use date assessed 10/21/23 01/23/24 15:51 Patient Tobacco Use Status Never used Tobacco 01/23/24 15:51 Tobacco use type 12/10/22 15:03 e-Cigarette/Vaping Use Never Used 01/23/24 15:51 Thrive Assessment: Date of Thrive Assessment Date Thrive assessed 07/22/22 01/23/24 15:51 Const Other: General: no acute distress and well developed Nutritional Appearance: well nourished Orientation/consciousness: patient oriented x3 HENMT Head: Yes normocephalic and Yes atraumatic Eyes General: appearance normal, both eyes and all related structures Pupils: Equal, round and reactive pupils present EOM: EOMs intact bilaterally Resp Effort & Inspection: normal respiratory effort Auscultation: clear to auscultation bilaterally Cardio Rate: regular rate Rhythm: regular rhythm Heart sounds: S1 normal heart sound present, S2 normal heart sound present, no gallops, no murmurs and no rubs GI Palpation (GI): No Abdominal aortic bruit present, Soft to palpation, nontender, No hepatosplenomegaly present and No Rebound tenderness present Auscultation: normal bowel sounds General: Yes no CVA tenderness Back/Spine/Pelvis Back: no CVA tenderness Cervical Spine: cervical ROM normal and No Cervical spine tenderness Thoracic/Lumbar Spine: thoraco-lumbar ROM normal, No pain with thoraco-lumbar ROM, No thoracic spinal tenderness and No lumbar spinal tenderness Extrem General: Yes normal to inspection, No edema and No calf tenderness Skin General: warm and dry. Normal skin color. Normal skin turgor Neuro General: patient oriented x3, gait normal and no focal neuro deficit Cranial nerves: Yes Equal, round and reactive pupils present Cognition (Neuro): normal cognition Gait exam (Neuro): Normal gait present Sensory Exam: No Sensory deficit (Neuro) Psych Appearance: grossly normal Affect: normal affect Attitude: cooperative Thought process: Normal thought process present Results AMB Hemoglobin A1c AMB Hemoglobin A1c 7.0 % Last Edit by Carrie Martinez on 01/23/24 16:36 Assessment and Plan Assessment & Plan (1) HTN (hypertension): Code(s): I10 - Essential (primary) hypertension Qualifiers: Hypertension type: unspecified Qualified Code(s): I10 - Essential (primary) hypertension Plan: Resting blood pressure is 140/90, above goal of less than 130/80 Will increase lisinopril to 30 mg daily. Advised to take as prescribed Low-sodium diet encouraged Follow-up in 1 month or sooner with symptoms or concerns Verbalized understanding and agreed with the treatment plan (2) Type 2 diabetes mellitus: Code(s): E11.9 - Type 2 diabetes mellitus without complications Plan: A1c today is 7.0%, above goal of less than 7.0%. Previous A1c was 6.5% Will start metformin 500 mg twice daily. Advised to take as prescribed ADA diet and routine exercise encouraged Will recheck A1c in 3 months Verbalized understanding and agreed with the treatment plan Orders: Orders AMB Hemoglobin A1c Today Z13.9 - Encounter for screening, unspecified Medications: New lisinopril 10 mg PO DAILY 90 days 90 tabs 1RF metformin 500 mg PO BIDWMEAL 30 days 60 tabs 3RF Coding Level of Care Code Est Pt Level 4 (10073) Diagnoses Hypertension, unspecified type I10 Hypertension type: unspecified Type 2 diabetes mellitus E11.9
[2024-01-23 15:56] VITALS: BP 154/80; PULSE 69; RESP 16; TEMP 36.8; O2SAT 96; BMI 36.2
[2024-01-23 16:12] VITALS: BP 148/90
== END 2024-01-23 16:29 | disposition home or self-care (01) ==
PROVIDERS: PCP Nurse Practitioner Family; Visit Provider Nurse Practitioner Family
DX: I10 Essential (primary) hypertension (principal); E11.9 Type 2 diabetes mellitus without complications
CPT/HCPCS: 83036; 99214

== ENCOUNTER 2024-02-24 15:58 | Outpatient (AMB) | payer MEDICARE, SELFPAY ==
--- NOTE | 2024-02-24 16:07 | MHC.PC.OV ---
Vital Signs 02/24/24 16:11 02/24/24 16:31 Height 5 ft 7 in Weight 230 lb BMI 36.0 BP 134/76 120/70 Blood Pressure Location Lt brachial Rt brachial Position Sitting Sitting Respiration 15 Pulse 88 Pulse Source Pulse Oximeter Temp 98.2 F Temp Source Oral Pulse Oximetry (%) 96 Oxygen Delivery Method Room Air Intake Visit Reasons: 1 mos HTN Intake Note: follow up on hypertension Allergies No Known Allergies Allergy (Verified 02/24/24 16:10) Tobacco use date assessed: 01/23/24 Dental Screening Dental Screen Date: 10/21/23 HPI HPI Comments History of Present Illness Details 73-year-old female, accompanied by her son, presents for hypertension She admits to taking her medications as prescribed without adverse reaction She admits to making healthy lifestyle changes, including low-salt diet She offers no complaints and denies acute symptoms at this time She requests an order for a blood pressure monitor Interpretation by the patient's son per patient's preference [facility] Medical History Atherosclerotic cardiovascular disease High cholesterol HTN (hypertension) Surgical History Hx of tubal ligation Family History Brother HTN (hypertension) History of open heart surgery Father HTN (hypertension) Mother HTN (hypertension) Sister HTN (hypertension) Social History Household Members: None Household Members Other:: son Both parents involved: No Caregiver staying overnight: No Housing: House Are you a primary acute care physical therapist to a significant other at home: No Do you presently have visiting nurse or other home services: No 75 years or older and lives alone: No Alcohol intake: never Patient Tobacco Use Status: Never used Tobacco e-Cigarette/Vaping Use: Never Used service: No Current occupational status: retired Cognitive needs: No Hearing needs: No Vision needs: No Questionnaire Thrive Questionnaire Date Thrive assessed: 07/22/22 ANKIT-7 AMB Questionnaire ANKIT-7 Date ANKIT - 7 assessed: 10/21/23 Source: Developed by Drs. Michele Weaver, Suly Sheets, Greg Gibbons and colleagues, with an educational jemima from [employer]. Review of Systems Const Details: Const Denies chills, Denies fatigue, Denies fever(s), Denies headache(s) and Denies weakness ENT Denies dizziness and Denies headache(s) Card Denies chest pain, Denies lightheadedness, Denies dyspnea and Denies other (Palpitations) Resp Denies cough, Denies dyspnea, Denies wheezing and Denies other ( shortness of breath) GI Denies abdominal pain, Denies melena, Denies hematochezia, Denies change in bowel habits, Denies dyspepsia and Denies nausea Denies hematuria and Denies dysuria Musc Denies abnormal gait, Denies myalgias, Denies arthralgias, Denies numbness and Denies tingling Skin/Breast Denies rash, Denies unusual bruising and Denies wounds Neuro Denies abnormal gait, Denies dizziness, Denies headache(s), Denies memory loss, Denies numbness, Denies Sensory deficit (Neuro), Denies tingling and Denies weakness Psych Denies anxiety, Denies depression, Denies memory loss Endo Denies cold intolerance, Denies fatigue, Denies heat intolerance, Denies polydipsia and Denies polyuria Aller/Immun Denies wheezing Physical exam (Primary Care) Vital Signs: Last Vital Signs Temp 98.2 F 02/24/24 16:11 Pulse 88 02/24/24 16:11 Resp 15 02/24/24 16:11 BP 134/76 02/24/24 16:11 Pulse Ox 96 02/24/24 16:11 Oxygen Delivery Method Room Air 02/24/24 16:11 BMI result Body Mass Index 36.0 Tobacco/Smoking Status: Tobacco use Status Tobacco use date assessed 01/23/24 02/24/24 16:09 Patient Tobacco Use Status Never used Tobacco 02/24/24 16:09 Tobacco use type 12/10/22 15:03 e-Cigarette/Vaping Use Never Used 02/24/24 16:09 Thrive Assessment: Date of Thrive Assessment Date Thrive assessed 07/22/22 02/24/24 16:09 Const Other: General: no acute distress and well developed Nutritional Appearance: well nourished Orientation/consciousness: patient oriented x3 HENMT Head: Yes normocephalic and Yes atraumatic Eyes General: appearance normal, both eyes and all related structures Pupils: Equal, round and reactive pupils present EOM: EOMs intact bilaterally Resp Effort & Inspection: normal respiratory effort Auscultation: clear to auscultation bilaterally Cardio Rate: regular rate Rhythm: regular rhythm Heart sounds: S1 normal heart sound present, S2 normal heart sound present, no gallops, no murmurs and no rubs GI Palpation (GI): No Abdominal aortic bruit present, Soft to palpation, nontender, No hepatosplenomegaly present and No Rebound tenderness present Auscultation: normal bowel sounds General: Yes no CVA tenderness Back/Spine/Pelvis Back: no CVA tenderness Cervical Spine: cervical ROM normal and No Cervical spine tenderness Thoracic/Lumbar Spine: thoraco-lumbar ROM normal, No pain with thoraco-lumbar ROM, No thoracic spinal tenderness and No lumbar spinal tenderness Extrem General: Yes normal to inspection, No edema and No calf tenderness Skin General: warm and dry. Normal skin color. Normal skin turgor Neuro General: patient oriented x3, gait normal and no focal neuro deficit Cranial nerves: Yes Equal, round and reactive pupils present Cognition (Neuro): normal cognition Gait exam (Neuro): Normal gait present Sensory Exam: No Sensory deficit (Neuro) Psych Appearance: grossly normal Affect: normal affect Attitude: cooperative Thought process: Normal thought process present Coding Level of Care Code Est Pt Level 3 (19755) Diagnoses Hypertension, unspecified type I10 Hypertension type: unspecified Assessment & Plan Assessment & Plan (1) HTN (hypertension): Code(s): I10 - Essential (primary) hypertension Category: Medical Qualifiers: Hypertension type: unspecified Qualified Code(s): I10 - Essential (primary) hypertension Plan: Resting blood pressure is 120/70, within goal of less than 130/80 Continue current treatment regimen Low-sodium diet encouraged Blood pressure monitor ordered and script given to the patient Follow-up in 2 months for hypertension and diabetes or sooner with symptoms or concerns Verbalized understanding and agreed with the plan Medications: New miscellaneous medical supply One large blood pressure cuff/monitor 1 ea 0RF
[2024-02-24 16:11] VITALS: BP 134/76; PULSE 88; RESP 15; TEMP 36.8; O2SAT 96; BMI 36.0
[2024-02-24 16:31] VITALS: BP 120/70
== END 2024-02-24 16:26 | disposition home or self-care (01) ==
PROVIDERS: PCP Nurse Practitioner Family; Visit Provider Nurse Practitioner Family
DX: I10 Essential (primary) hypertension (principal)

== ENCOUNTER → 2024-02-24 15:58 | Outpatient (BNVA) | payer MEDICARE, SELFPAY | PROVIDERS: PCP Nurse Practitioner Family; Visit Provider Nurse Practitioner Family | DX: I10 Essential (primary) hypertension (principal) | CPT/HCPCS: 99212 ==

== ENCOUNTER 2024-04-24 10:42 | Outpatient (REF) | payer MEDICARE, SELFPAY ==
[2024-04-24 13:38] LABS: Appearance Urine Clear; Color Urine Yellow; Glucose Urine UA Negative (Negative); Leukocyte Esterase Urine Trace (Negative); Nitrite Urine Negative (Negative); PH 6.5 (5.0-9.0); Specific Gravity - Urine 1.025 (1.005-1.025); UMIC TRIGGER UACC YES; Urine Blood Trace (Negative); Urine Ketones Negative (Negative); Urine Protein 30 (1+) mg/dL (Neg-Trace)
[2024-04-24 13:43] LABS: Bacteria Urine Trace (None Seen); Hyaline Casts Urine 0-2 /LPF (0-2); WBC Urine 0-5 /HPF (0-5)
== END 2024-04-24 10:43 | disposition home or self-care (01) ==
LOC: HO.HMGCLDS 10:42
PROVIDERS: PCP Nurse Practitioner Family; Visit Provider Nurse Practitioner Family
DX: Z00.00 Encounter for general adult medical examination without abnormal findings (principal)
CPT/HCPCS: 81001

== ENCOUNTER 2024-04-27 15:49 | Outpatient (AMB) | payer MEDICARE, SELFPAY ==
--- NOTE | 2024-04-27 15:58 | A.OFFPC_ITS ---
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 Required: No Accompanied by: Son Is last menstrual period known: No Post menopausal: No Patient : No Allergies No Known Allergies Allergy (Verified 04/27/24 16:14) Medication List - Last Reconciled 04/27/24 by Fanta Zapien CNP acetaminophen (Tylenol) 650 mg (2 x 325 mg) PO Q6H PRN aspirin 81 mg PO DAILY atorvastatin 80 mg PO DAILY 90 days carvedilol 12.5 mg PO BID 90 days cholecalciferol (vitamin D3) 25 mcg PO DAILY 90 days furosemide 20 mg PO DAILY 90 days isosorbide mononitrate ER 15 mg (1/2 x 30 mg) PO DAILY 90 days lisinopril 10 mg PO DAILY 90 days lisinopril 20 mg PO DAILY 90 days metformin 500 mg PO BIDWMEAL 30 days miscellaneous medical supply One large blood pressure cuff/monitor Tobacco use date assessed: 04/27/24 Fall risk assessment: No Falls in past year Last assessed Fall Risk: 04/27/24 Dental Screening Dental Screen Date: 04/27/24 Did you have a dental visit in the last 12 months?: Yes Did you have a dental problem in the last 6 months where you did not have access to dental care?: No Was dental information given to patient?: Patient has dentist HPI HPI Comments History of Present Illness Details 73-year-old Slovak-speaking female, acc ompanied by her son, presents for hypertension and diabetes follow-up. She admits to taking her medications as prescribed without adverse reactions. She notes that she has been making healthy dietary choices, including limiting carbs and maintaining low-sodium diet. She offers no complaints and denies acute symptoms at this time. Interpretation by the patient's son per patient's preference. [facility] Medical History Atherosclerotic cardiovascular disease High cholesterol HTN (hypertension) Surgical History Hx of tubal ligation Family History Brother HTN (hypertension) History of open heart surgery Father HTN (hypertension) Mother HTN (hypertension) Sister HTN (hypertension) Social History Household Members: None Household Members Other:: son Both parents involved: No Caregiver staying overnight: No Housing: House Are you a primary chiropractic care to a significant other at home: No Do you presently have visiting nurse or other home services: No 75 years or older and lives alone: No Alcohol intake: never Patient Tobacco Use Status: Never used Tobacco e-Cigarette/Vaping Use: Never Used service: No Current occupational status: retired Cognitive needs: No Hearing needs: No Vision needs: No Questionnaire PHQ-9 Over the last 2 weeks, how often have you been bothered by any of the following problems? 1. Little interest or pleasure in doing things: not at all 2. Feeling down, depressed, or hopeless: not at all 3. Trouble falling or staying asleep, or sleeping too much: not at all 4. Feeling tired or having little energy: not at all 5. Poor appetite or overeating: not at all 6. Feeling bad about yourself - or that you are a failure or have let yourself or your family down: not at all 7. Trouble concentrating on things, such as reading the newspaper or watching television: not at all 8. Moving or speaking so slowly that other people could have noticed. Or the opposite - being so fidgety or restless that you have been moving around a lot more than usual: not at all 9. Thoughts that you would be better off or of hurting yourself in some way: not at all Total score: 0 Source: Developed by Drs. Michele Weaver, Suly Sheets, Greg Gibbons and colleagues, with an educational jemima from [employer]. Thrive Questionnaire Date Thrive assessed: 07/22/22 I am a: Patient What is your living situation today?: I have a steady place to live Within the past 12 months, did the food you bought not last and you didn't have the money to get more?: Never true Within the past 12 months, did you worry whether your food would run out before you got money to buy more?: Never true Do you have trouble paying for medicines?: No Do you have trouble getting transportation to medical appointments?: No Do you have trouble paying your heating and electricity bill?: No Do you have trouble taking care of your child, family member or friend?: No Do you have trouble with day-to-day activities such as bathing, preparing meals, shopping, managing finances, etc.?: No Are you currently unemployed and looking for a job?: No Are you interested in more education?: No Please select the resources that you would like help with: None Currently or been in a relationship where the following occur: I choose not to answer THRIVE Score: 0 AUDIT C Alcohol Use Questionnaire (AUDIT-C) 1. How often do you have a drink containing alcohol?: Never Total Score: 0 ANKIT-7 AMB Questionnaire ANKIT-7 Date ANKIT - 7 assessed: 10/21/23 Feeling nervous, anxious, or on edge: 0 = Not at all Not being able to stop or control worryin = Not at all Worrying too much about different things: 0 = Not at all Trouble relaxin = Not at all Being so restless that it is hard to sit still: 0 = Not at all Becoming easily annoyed or irritable: 0 = Not at all Feeling afraid as if something awful might happen: 0 = Not at all Total ANKIT-7 score (0-4 normal; 5-9 mild; 10-14 moderate; 15-21 severe): 0 Source: Developed by Drs. Michele Weaver, Suly Sheets, Greg Gibbons and colleagues, with an educational jemima from [employer]. Review of Systems Const Details: Const Denies chills, Denies fatigue, Denies fever(s), Denies headache(s) and Denies weakness ENT Denies dizziness and Denies headache(s) Card Denies chest pain, Denies lightheadedness, Denies dyspnea and Denies other (Palpitations) Resp Denies cough, Denies dyspnea, Denies wheezing and Denies other ( shortness of breath) GI Denies abdominal pain, Denies melena, Denies hematochezia, Denies change in bowel habits, Denies dyspepsia and Denies nausea Denies hematuria and Denies dysuria Musc Denies abnormal gait, Denies myalgias, Denies arthralgias, Denies numbness and Denies tingling Skin/Breast Denies rash, Denies unusual bruising and Denies wounds Neuro Denies abnormal gait, Denies dizziness, Denies headache(s), Denies memory loss, Denies numbness, Denies Sensory deficit (Neuro), Denies tingling and Denies weakness Psych Denies anxiety, Denies depression, Denies memory loss Endo Denies cold intolerance, Denies fatigue, Denies heat intolerance, Denies polydipsia and Denies polyuria Aller/Immun Denies wheezing Physical exam (Primary Care) Vital Signs: Last Vital Signs Temp 97.3 F 04/27/24 16:00 Pulse 92 04/27/24 16:18 Resp 16 04/27/24 16:00 BP 144/90 H 04/27/24 16:18 Pulse Ox 97 04/27/24 16:00 Oxygen Delivery Method Room Air 04/27/24 16:00 BMI result Body Mass Index 35.8 Tobacco/Smoking Status: Tobacco use Status Tobacco use date assessed 04/27/24 04/27/24 16:06 Patient Tobacco Use Status Never used Tobacco 04/27/24 16:06 Tobacco use type 12/10/22 15:03 e-Cigarette/Vaping Use Never Used 04/27/24 16:06 PHQ-9: PHQ-9 Score PHQ-9: Total score 0 04/27/24 16:31 Thrive Assessment: Date of Thrive Assessment Date Thrive assessed 07/22/22 04/27/24 16:06 Currently or been in a relationship where the following occur: I choose not to answer Const Other: General: no acute distress and well developed Nutritional Appearance: well nourished Orientation/consciousness: patient oriented x3 HENMT Head: Yes normocephalic and Yes atraumatic Eyes General: appearance normal, both eyes and all related structures Pupils: Equal, round and reactive pupils present EOM: EOMs intact bilaterally Resp Effort & Inspection: normal respiratory effort Auscultation: clear to auscultation bilaterally Cardio Rate: regular rate Rhythm: regular rhythm Heart sounds: S1 normal heart sound present, S2 normal heart sound present, no gallops, no murmurs and no rubs GI Palpation (GI): No Abdominal aortic bruit present, Soft to palpation, nontender, No hepatosplenomegaly present and No Rebound tenderness present Auscultation: normal bowel sounds General: Yes no CVA tenderness Back/Spine/Pelvis Back: no CVA tenderness Cervical Spine: cervical ROM normal and No Cervical spine tenderness Thoracic/Lumbar Spine: thoraco-lumbar ROM normal, No pain with thoraco-lumbar ROM, No thoracic spinal tenderness and No lumbar spinal tenderness Extrem General: Yes normal to inspection, No edema and No calf tenderness Skin General: warm and dry. Normal skin color. Normal skin turgor Neuro General: patient oriented x3, gait normal and no focal neuro deficit Cranial nerves: Yes Equal, round and reactive pupils present Cognition (Neuro): normal cognition Gait exam (Neuro): Normal gait present Sensory Exam: No Sensory deficit (Neuro) Psych Appearance: grossly normal Affect: normal affect Attitude: cooperative Thought process: Normal thought process present Results AMB Hemoglobin A1c AMB Hemoglobin A1c 6.1 % Last Edit by Carrie Martinez on 04/27/24 16:18 Results Reviewed Results Reviewed: Laboratory Last Values Hgb A1c (Clinic) 6.1 % (4.0-6.0) H 04/27/24 16:12 Coding Level of Care Code Est Pt Level 3 (58954) Diagnoses Type 2 diabetes mellitus E11.9 Hypertension, unspecified type I10 Hypertension type: unspecified Assessment & Plan Assessment & Plan (1) Type 2 diabetes mellitus: Code(s): E11.9 - Type 2 diabetes mellitus without complications Category: Medical Plan: A1c today 6.1%, within goal of less than 7.0%. Previous A1c was 7.0%. Continue to take metformin 500 mg twice daily. ADA diet and routine exercise encouraged. Diabetes supplies ordered for 3 times daily glucose testing. Will recheck A1c in 3 months. (2) HTN (hypertension): Code(s): I10 - Essential (primary) hypertension Category: Medical Qualifiers: Hypertension type: unspecified Qualified Code(s): I10 - Essential (primary) hypertension Plan: Resting blood pressure is 144/90, above goal of less than 130/80. Will increase lisinopril to 40 mg daily; advised to take as prescribed. Continue to take isosorbide mononitrate, furosemide, and carvedilol as prescribed. Low-sodium diet encouraged. Follow-up in 1 months or sooner with symptoms or concerns. Verbalized understanding and agreed with the plan. Orders: Orders AMB Hemoglobin A1c 04/27/24 Z13.9 - Encounter for screening, unspecified Medications: New lisinopril 40 mg PO DAILY 90 days 90 tabs 1RF blood-glucose meter (FreeStyle Lite Meter kit) Blood glucose testing three times daily 1 ea 0RF lancets (FreeStyle Lancets) Glucose testing three times daily 100 ea 3RF blood sugar diagnostic (FreeStyle Lite Strips) Blood glucose testing three times daily 100 ea 3RF Discontinued lisinopril Discontinued Reason: Doctor's Order 10 mg PO DAILY 90 days 90 tabs 1RF lisinopril Discontinued Reason: Doctor's Order 20 mg PO DAILY 90 days 90 tabs 1RF
[2024-04-27 16:00] VITALS: BP 155/68; PULSE 87; RESP 16; TEMP 36.3; O2SAT 97; BMI 35.8
[2024-04-27 16:18] VITALS: BP 144/90; PULSE 92
--- OUTSIDE RECORDS SUMMARY | 2024-05-04 15:20 | XMS_ITS | Continuity of Care Document ---
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 Onset: 1 Essential hypertension Lb Diaz M.D. O nset: 03/19/2023 Hypercholesterolemia Lb Diaz M.D. Ons et: 03/19/2023 Vitamin D deficiency Lb Diaz M.D. Ons et: 03/19/2023 Osteoporosis Lb Diaz M.D. Onset: 1 Social History Type Date Description Comments Sex Unknown Lives With Son Tobacco Use Start: Unknown Never Smoked Cigarettes Smoking Status Reviewed: 05/20/23 Never Smoked Cigaret alicia ETOH Use Rarely consumes alcohol Allergies and adverse reactions Description No Known Drug Allergies Medications Active Medications SIG Qnty Indications Ordering Provider Date Alendronate [id number] Tablets Take 1 Tablet By Mouth Once A Week Curry Jewell CNP Atorvastatin [id number] Tablets Take 1 Tablet By Mouth Daily Curry Jewell CNP Pshvyxqile19.5mg Tablets Take 1 Tablet By Mouth Twice Daily Curry Jewell CNP [id number] Tablets Take 1 Tablet By Mouth Daily Curry Jewell CNP [id number] Tablets Take 1 Tablet By Mouth Daily Curry Jewell CNP Aspirin Low Ikeg06gl Tablets DR Take 1 Tablet By Mouth Every Day Unknown Isosorbide Mononitrate ER30mg Tablets ER 24HR Take 1/2 Tablet By Mouth Daily Curry Jewell CNP Vital Signs Date Vital Result Comment 05/20/2023 3:35pm BP Systolic 160 mmHg BP Diastolic 92 mmHg Heart Rate 84 /min Height 68 inches 5'8 Weight 226.12 lb BMI (Body Mass Index) 34.4 kg/m2 Results Test Acquired Date Facility Test Result H/L [place] Laboratory test finding 05/20/2023 [facility] 25Oh Vitamin D 28.9 NG/ML (20-50) Phosphorus 3.7 mg/dL (2.5-4.5) PTH, Intact 31 pg/mL (15-65) Medical Devices Description No Information Available Encounters Type Date Location Provider Dx Diagnosis Office Visit 05/20/2023 3:15p Main Office Lb Diaz M.D. M85.80 Oth disrd of bone density and structure, unspecified site Assessments Date Code Description Provider 05/20/2023 M85.80 Other specified disorders of bone density and structure, unspecified site Lb Diaz M.D. Plan of Treatment Future Appointment(s):* 05/21/2024 2:30 pm - Lb Diaz M.D. at Main Office 05/20/2023 - Lb Diaz M.D.* M85.80 Other specified disorders of bone density and structure, unspecified site Functional Status Description No Information Available Mental Status Description No Information Available Referrals Description No Information Available
== END 2024-04-27 16:30 | disposition home or self-care (01) ==
PROVIDERS: PCP Nurse Practitioner Family; Visit Provider Nurse Practitioner Family
DX: E11.9 Type 2 diabetes mellitus without complications (principal); I10 Essential (primary) hypertension

== ENCOUNTER → 2024-04-27 15:49 | Outpatient (BNVA) | payer MEDICARE, SELFPAY | PROVIDERS: PCP Nurse Practitioner Family; Visit Provider Nurse Practitioner Family | DX: E11.9 Type 2 diabetes mellitus without complications (principal); I10 Essential (primary) hypertension | CPT/HCPCS: 83036; 96127; 99212 ==

== ENCOUNTER 2024-05-28 12:51 | Outpatient (AMB) | payer MEDICARE, SELFPAY ==
--- NOTE | 2024-05-28 12:59 | MHC.PC.OV ---
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 Required: Yes Export Freight Manager Language: Collection Systems Foreman Name: pt refused Information Interpreted: non-clinical & clinical Is last menstrual period known: No Post menopausal: No Patient : No Allergies No Known Allergies Allergy (Verified 05/28/24 13:16) Medication List - Last Reconciled 05/28/24 by Fanta Zapien CNP acetaminophen (Tylenol) 650 mg (2 x 325 mg) PO Q6H PRN aspirin 81 mg PO DAILY atorvastatin 80 mg PO DAILY 90 days blood sugar diagnostic (FreeStyle Lite Strips) Blood glucose testing three times daily blood-glucose meter (FreeStyle Lite Meter kit) Blood glucose testing three times daily carvedilol 12.5 mg PO BID 90 days cholecalciferol (vitamin D3) 25 mcg PO DAILY 90 days furosemide 20 mg PO DAILY 90 days isosorbide mononitrate ER 15 mg (1/2 x 30 mg) PO DAILY 90 days lancets (FreeStyle Lancets) Glucose testing three times daily lisinopril 40 mg PO DAILY 90 days metformin 500 mg PO BIDWMEAL 30 days miscellaneous medical supply One large blood pressure cuff/monitor Tobacco use date assessed: 05/28/24 Fall risk assessment: No Falls in past year Last assessed Fall Risk: 05/28/24 Dental Screening Dental Screen Date: 05/28/24 Did you have a dental visit in the last 12 months?: Yes Did you have a dental problem in the last 6 months where you did not have access to dental care?: No Was dental information given to patient?: Patient has dentist HPI HPI Comments History of Present Illness Details 73-year-old English-speaking female, accompanied by her son, presents for hypertension follow-up. She admits to taking her medications as prescribed without adverse reactions. She has been making healthy dietary changes, including low-sodium diet. She monitors her blood pressure daily in the morning and average between 130-145/60s-80s. She offers no complaints and denies acute symptoms at this time. Interpretation by the patient's son per patient's preference. [facility] Medical History Atherosclerotic cardiovascular disease High cholesterol HTN (hypertension) Surgical History Hx of tubal ligation Family History Brother HTN (hypertension) History of open heart surgery Father HTN (hypertension) Mother HTN (hypertension) Sister HTN (hypertension) Social History Household Members: None Household Members Other:: son Both parents involved: No Caregiver staying overnight: No Housing: House Are you a primary home health care worker to a significant other at home: No Do you presently have visiting nurse or other home services: No 75 years or older and lives alone: No Alcohol intake: never Patient Tobacco Use Status: Never used Tobacco e-Cigarette/Vaping Use: Never Used service: No Current occupational status: retired Cognitive needs: No Hearing needs: No Vision needs: No Questionnaire PHQ-9 Over the last 2 weeks, how often have you been bothered by any of the following problems? 1. Little interest or pleasure in doing things: not at all 2. Feeling down, depressed, or hopeless: not at all 3. Trouble falling or staying asleep, or sleeping too much: several days 4. Feeling tired or having little energy: not at all 5. Poor appetite or overeating: several days 6. Feeling bad about yourself - or that you are a failure or have let yourself or your family down: not at all 7. Trouble concentrating on things, such as reading the newspaper or watching television: not at all 8. Moving or speaking so slowly that other people could have noticed. Or the opposite - being so fidgety or restless that you have been moving around a lot more than usual: not at all 9. Thoughts that you would be better off or of hurting yourself in some way: not at all Total score: 2 Depression Screening Interpretation: Negative Depression Screening Done: Yes Source: Developed by Drs. Michele Weaver, Greg Hermosillo and colleagues, with an educational jemima from [employer]. Thrive Questionnaire Date Thrive assessed: 07/22/22 I am a: Patient What is your living situation today?: I have a steady place to live Within the past 12 months, did the food you bought not last and you didn't have the money to get more?: I choose not to answer this question Within the past 12 months, did you worry whether your food would run out before you got money to buy more?: I choose not to answer this question Do you have trouble paying for medicines?: No Do you have trouble getting transportation to medical appointments?: No Do you have trouble paying your heating and electricity bill?: No Do you have trouble taking care of your child, family member or friend?: Yes Do you have trouble with day-to-day activities such as bathing, preparing meals, shopping, managing finances, etc.?: No Are you currently unemployed and looking for a job?: No Are you interested in more education?: I choose not to answer this question Please select the resources that you would like help with: None Currently or been in a relationship where the following occur: I choose not to answer THRIVE Score: 0 AUDIT C Alcohol Use Questionnaire (AUDIT-C) 1. How often do you have a drink containing alcohol?: Never Total Score: 0 ANKIT-7 AMB Questionnaire ANKIT-7 Date ANKIT - 7 assessed: 10/21/23 Feeling nervous, anxious, or on edge: 0 = Not at all Not being able to stop or control worryin = Not at all Worrying too much about different things: 0 = Not at all Trouble relaxin = Not at all Being so restless that it is hard to sit still: 0 = Not at all Becoming easily annoyed or irritable: 0 = Not at all Feeling afraid as if something awful might happen: 0 = Not at all Total ANKIT-7 score (0-4 normal; 5-9 mild; 10-14 moderate; 15-21 severe): 0 Source: Developed by Drs. Michele Weaver, Greg Hermosillo and colleagues, with an educational jemima from [employer]. Review of Systems Const Details: Const Denies chills, Denies fatigue, Denies fever(s), Denies headache(s) and Denies weakness ENT Denies dizziness and Denies headache(s) Card Denies chest pain, Denies lightheadedness, Denies dyspnea and Denies other (Palpitations) Resp Denies cough, Denies dyspnea, Denies wheezing and Denies other ( shortness of breath) GI Denies abdominal pain, Denies melena, Denies hematochezia, Denies change in bowel habits, Denies dyspepsia and Denies nausea Denies hematuria and Denies dysuria Musc Denies abnormal gait, Denies myalgias, Denies arthralgias, Denies numbness and Denies tingling Skin/Breast Denies rash, Denies unusual bruising and Denies wounds Neuro Denies abnormal gait, Denies dizziness, Denies headache(s), Denies memory loss, Denies numbness, Denies Sensory deficit (Neuro), Denies tingling and Denies weakness Psych Denies anxiety, Denies depression, Denies memory loss Endo Denies cold intolerance, Denies fatigue, Denies heat intolerance, Denies polydipsia and Denies polyuria Aller/Immun Denies wheezing Physical exam (Primary Care) Vital Signs: Last Vital Signs Temp 97.8 F 05/28/24 13:07 Pulse 67 05/28/24 13:07 Resp 16 05/28/24 13:07 BP 149/65 H 05/28/24 13:07 Pulse Ox 95 05/28/24 13:07 Oxygen Delivery Method Room Air 05/28/24 13:07 BMI result Body Mass Index 35.6 Tobacco/Smoking Status: Tobacco use Status Tobacco use date assessed 05/28/24 05/28/24 13:11 Patient Tobacco Use Status Never used Tobacco 05/28/24 13:01 Tobacco use type 12/10/22 15:03 e-Cigarette/Vaping Use Never Used 05/28/24 13:01 PHQ-9: PHQ-9 Score PHQ-9: Total score 2 05/28/24 13:01 Depression Screening Interpretation: Negative Thrive Assessment: Date of Thrive Assessment Date Thrive assessed 07/22/22 05/28/24 13:01 Currently or been in a relationship where the following occur: I choose not to answer Const Other: General: no acute distress and well developed Nutritional Appearance: well nourished Orientation/consciousness: patient oriented x3 [facility] Head: Yes normocephalic and Yes atraumatic Eyes General: appearance normal, both eyes and all related structures Pupils: Equal, round and reactive pupils present EOM: EOMs intact bilaterally Resp Effort & Inspection: normal respiratory effort Auscultation: clear to auscultation bilaterally Cardio Rate: regular rate Rhythm: regular rhythm Heart sounds: S1 normal heart sound present, S2 normal heart sound present, no gallops, no murmurs and no rubs GI Palpation (GI): No Abdominal aortic bruit present, Soft to palpation, nontender, No hepatosplenomegaly present and No Rebound tenderness present Auscultation: normal bowel sounds General: Yes no CVA tenderness Back/Spine/Pelvis Back: no CVA tenderness Cervical Spine: cervical ROM normal and No Cervical spine tenderness Thoracic/Lumbar Spine: thoraco-lumbar ROM normal, No pain with thoraco-lumbar ROM, No thoracic spinal tenderness and No lumbar spinal tenderness Extrem General: Yes normal to inspection, No edema and No calf tenderness Skin General: warm and dry. Normal skin color. Normal skin turgor Neuro General: patient oriented x3, gait normal and no focal neuro deficit Cranial nerves: Yes Equal, round and reactive pupils present Cognition (Neuro): normal cognition Gait exam (Neuro): Normal gait present Sensory Exam: No Sensory deficit (Neuro) Psych Appearance: grossly normal Affect: normal affect Attitude: cooperative Thought process: Normal thought process present Coding Level of Care Code Est Pt Level 4 (10347) Diagnoses Hypertension, unspecified type I10 Hypertension type: unspecified Hyperlipidemia E78.5 Assessment & Plan Assessment & Plan (1) HTN (hypertension): Code(s): I10 - Essential (primary) hypertension Category: Medical Qualifiers: Hypertension type: unspecified Qualified Code(s): I10 - Essential (primary) hypertension Plan: Resting blood pressure is 138/80, above goal of less than 130/80. Her home blood pressure readings have been above goal. Will increase carvedilol to 25 mg twice daily; advised to take as prescribed. Continue to take lisinopril 40 mg daily. Low-sodium diet encouraged. Continue to monitor blood pressure daily. Reports heart rate consistently below 60 or dizziness/lightheadedness. Follow-up in 2 months for hypertension and diabetes or return sooner with symptoms or concerns. Verbalized understanding and agreed with treatment plan. (2) Hyperlipidemia: Code(s): E78.5 - Hyperlipidemia, unspecified Category: Medical Plan: Continue current treatment regimen. Fast for 10-12 hours, may drink water, and get lipid panel blood work done a few days before next visit. Follow-up in 2 months. Verbalized understanding and agreed with treatment plan. Orders: Orders Lipid Panel Today E78.5 - Hyperlipidemia, unspecified Medications: Changed From carvedilol 12.5 mg PO BID 90 days 180 tabs 1RF To carvedilol 25 mg (2 x 12.5 mg) PO BID 90 days 360 tabs 1RF
[2024-05-28 13:07] VITALS: BP 149/65; PULSE 67; RESP 16; TEMP 36.6; O2SAT 95; BMI 35.6
[2024-05-28 13:22] VITALS: BP 138/80; PULSE 72
== END 2024-05-28 13:37 | disposition home or self-care (01) ==
PROVIDERS: PCP Nurse Practitioner Family; Visit Provider Nurse Practitioner Family
DX: I10 Essential (primary) hypertension (principal); E78.5 Hyperlipidemia, unspecified

== ENCOUNTER → 2024-05-28 12:51 | Outpatient (BNVA) | payer MEDICARE, SELFPAY | PROVIDERS: PCP Nurse Practitioner Family; Visit Provider Nurse Practitioner Family | DX: I10 Essential (primary) hypertension (principal); E78.5 Hyperlipidemia, unspecified | CPT/HCPCS: 96127; 99212 ==

== ENCOUNTER 2024-07-24 10:02 | Outpatient (REF) | payer MEDICARE, SELFPAY ==
--- OUTSIDE RECORDS SUMMARY | 2024-07-24 10:04 | XMS_ITS | Continuity of Care Document ---
Author Organization [facility] [address] [place] [address] Phone [phone] Care Team Providers Care All Source Intelligence Technician Name Role Phone Curry Jewell CNP Care Team Information Receive r [phone] Problems Active Problems Provider Date Hyperlipidemia Lb [...] SIG Qnty Indications Ordering Provider Date Alendronate [id number] Tablets Take 1 Tablet By Mouth Once A Week Curry Jewell CNP Atorvastatin Vayighm94mu Tablets Take 1 Tablet By Mouth Daily Curry Jewell CNP Dkwysjczql94.5mg Tablets Take 1 Tablet By Mouth Twice Daily Curry Jewell CNP Byxlvpljlk47sv Tablets Take 1 Tablet By Mouth Daily Curry Jewell CNP Hidjgvsfbf28bi Tablets Take 1 Tablet By Mouth Daily Curry Jewell CNP Aspirin Low Chuo59jp Tablets DR Take 1 Tablet By Mouth [...] Range N [place]te Laboratory test finding 05/20/2023 [facility] Lab 25Oh Vitamin D 28.9 NG/ML [...] Diaz M.D. Plan of Treatment Future Appointment(s):* 08/23/2024 10:45 am - Lb Diaz M.D. at Main Office 05/20/2023 - Lb Diaz M.D.* M85.80 Other specified disorders of bone density and structure, unspecified site Functional Status Description No Information Available Mental Status Description No Information Available Referrals Description No Information Available
[2024-07-24 12:20] LABS: Cholesterol 123 mg/dL (<200); HDL Cholesterol 35 mg/dL (>40); LDL Cholesterol Calculated 68 mg/dL (<100); Triglycerides 103 mg/dL (<150)
== END 2024-07-24 10:03 | disposition home or self-care (01) ==
LOC: HO.HMGCLDS 10:02
PROVIDERS: PCP Nurse Practitioner Family; Visit Provider Nurse Practitioner Family
DX: E78.5 Hyperlipidemia, unspecified (principal)
CPT/HCPCS: 36415; 80061

== ENCOUNTER 2024-07-30 12:56 | Outpatient (AMB) | payer MEDICARE, SELFPAY ==
--- NOTE | 2024-07-30 12:59 | A.OFFPC_ITS ---
Vital Signs 07/30/24 13:04 07/30/24 13:38 Height 5 ft 7 in Weight 222 lb BMI 34.8 BP 124/58 L 110/60 Blood Pressure Location Rt brachial Lt brachial Position Sitting Sitting Respiration 16 Pulse 74 Pulse Source Pulse Oximeter Temp 97.7 F Temp Source Oral Pulse Oximetry (%) 97 Oxygen Delivery Method Room Air Intake Visit Reasons: 2 mos HTN, DM Intake Note: patient here for follow up on HTN and DM Maintenance Welder Required: Yes Maintenance Welder Language: Armenian Accompanied by: Son Is last menstrual period known: No Post menopausal: No Patient : No Allergies No Known Allergies Allergy (Verified 07/30/24 13:31) Medication List - Last Reconciled 07/30/24 by Fanta Zapien CNP acetaminophen (Tylenol) 650 mg (2 x 325 mg) PO Q6H PRN aspirin 81 mg PO DAILY atorvastatin 80 mg PO DAILY 90 days blood sugar diagnostic (FreeStyle Lite Strips) Blood glucose testing three times daily blood-glucose meter (FreeStyle Lite Meter kit) Blood glucose testing three times daily carvedilol 25 mg (2 x 12.5 mg) PO BID 90 days cholecalciferol (vitamin D3) 25 mcg PO DAILY 90 days furosemide 20 mg PO DAILY 90 days isosorbide mononitrate ER 15 mg (1/2 x 30 mg) PO DAILY 90 days lancets (FreeStyle Lancets) Glucose testing three times daily lisinopril 40 mg PO DAILY 90 days metformin 500 mg PO BIDWMEAL 30 days miscellaneous medical supply One large blood pressure cuff/monitor Tobacco use date assessed: 07/30/24 Fall risk assessment: No Falls in past year Last assessed Fall Risk: 07/30/24 Dental Screening Dental Screen Date: 07/30/24 Did you have a dental visit in the last 12 months?: Yes Did you have a dental problem in the last 6 months where you did not have access to dental care?: No Was dental information given to patient?: Patient has dentist HPI HPI Comments History of Present Illness Details 73-year-old Armenian-speaking female, acc ompanied by her son, presents for hypertension follow-up. She admits to taking her medications as prescribed without adverse reactions. She has been making healthy dietary changes, including low-sodium diet. She offers no complaints and denies acute symptoms at this time. Interpretation by the patient's son per patient's preference. [facility] Medical History Atherosclerotic cardiovascular disease High cholesterol HTN (hypertension) Surgical History Hx of tubal ligation Family History Brother HTN (hypertension) History of open heart surgery Father HTN (hypertension) Mother HTN (hypertension) Sister HTN (hypertension) Social History Household Members: None Household Members Other:: son Both parents involved: No Caregiver staying overnight: No Housing: House Are you a primary residential child care counselor to a significant other at home: No Do you presently have visiting nurse or other home services: No 75 years or older and lives alone: No Alcohol intake: never Patient Tobacco Use Status: Never used Tobacco e-Cigarette/Vaping Use: Never Used service: No Current occupational status: retired Cognitive needs: No Hearing needs: No Vision needs: No Questionnaire Thrive Questionnaire Date Thrive assessed: 05/28/24 I am a: Patient What is your living situation today?: I have a steady place to live Within the past 12 months, did the food you bought not last and you didn't have the money to get more?: I choose not to answer this question Within the past 12 months, did you worry whether your food would run out before you got money to buy more?: I choose not to answer this question Do you have trouble paying for medicines?: No Do you have trouble getting transportation to medical appointments?: No Do you have trouble paying your heating and electricity bill?: No Do you have trouble taking care of your child, family member or friend?: Yes Do you have trouble with day-to-day activities such as bathing, preparing meals, shopping, managing finances, etc.?: No Are you currently unemployed and looking for a job?: No Are you interested in more education?: I choose not to answer this question Please select the resources that you would like help with: None Currently or been in a relationship where the following occur: I choose not to answer THRIVE Score: 0 ANKIT-7 AMB Questionnaire ANKIT-7 Date ANKIT - 7 assessed: 10/21/23 Source: Developed by Drs. Michele Weaver, Suly Sheets, Greg Gibbons and colleagues, with an educational jemima from [employer]. Review of Systems Const Details: Const Denies chills, Denies fatigue, Denies fever(s), Denies headache(s) and Denies weakness ENT Denies dizziness and Denies headache(s) Card Denies chest pain, Denies lightheadedness, Denies dyspnea and Denies other (Palpitations) Resp Denies cough, Denies dyspnea, Denies wheezing and Denies other ( shortness of breath) GI Denies abdominal pain, Denies melena, Denies hematochezia, Denies change in bowel habits, Denies dyspepsia and Denies nausea Denies hematuria and Denies dysuria Musc Denies abnormal gait, Denies myalgias, Denies arthralgias, Denies numbness and Denies tingling Skin/Breast Denies rash, Denies unusual bruising and Denies wounds Neuro Denies abnormal gait, Denies dizziness, Denies headache(s), Denies memory loss, Denies numbness, Denies Sensory deficit (Neuro), Denies tingling and Denies weakness Psych Denies anxiety, Denies depression, Denies memory loss Endo Denies cold intolerance, Denies fatigue, Denies heat intolerance, Denies polydipsia and Denies polyuria Aller/Immun Denies wheezing Physical exam (Primary Care) Vital Signs: Last Vital Signs Temp 97.7 F 07/30/24 13:04 Pulse 74 07/30/24 13:04 Resp 16 07/30/24 13:04 BP 124/58 L 07/30/24 13:04 Pulse Ox 97 07/30/24 13:04 Oxygen Delivery Method Room Air 07/30/24 13:04 BMI result Body Mass Index 34.8 Tobacco/Smoking Status: Tobacco use Status Tobacco use date assessed 07/30/24 07/30/24 13:08 Patient Tobacco Use Status Never used Tobacco 07/30/24 13:01 Tobacco use type 12/10/22 15:03 e-Cigarette/Vaping Use Never Used 07/30/24 13:01 Thrive Assessment: Date of Thrive Assessment Date Thrive assessed 05/28/24 07/30/24 13:01 Currently or been in a relationship where the following occur: I choose not to answer Const Other: General: no acute distress and well developed Nutritional Appearance: well nourished Orientation/consciousness: patient oriented [facility]3 [facility] Head: Yes normocephalic and Yes atraumatic Eyes General: appearance normal, both eyes and all related structures Pupils: Equal, round and reactive pupils present EOM: EOMs intact bilaterally Resp Effort & Inspection: normal respiratory effort Auscultation: clear to auscultation bilaterally Cardio Rate: regular rate Rhythm: regular rhythm Heart sounds: S1 normal heart sound present, S2 normal heart sound present, no gallops, no murmurs and no rubs GI Palpation (GI): No Abdominal aortic bruit present, Soft to palpation, nontender, No hepatosplenomegaly present and No Rebound tenderness present Auscultation: normal bowel sounds General: Yes no CVA tenderness Back/Spine/Pelvis Back: no CVA tenderness Cervical Spine: cervical ROM normal and No Cervical spine tenderness Thoracic/Lumbar Spine: thoraco-lumbar ROM normal, No pain with thoraco-lumbar ROM, No thoracic spinal tenderness and No lumbar spinal tenderness Extrem General: Yes normal to inspection, No edema and No calf tenderness Skin General: warm and dry. Normal skin color. Normal skin turgor Neuro General: patient oriented x3, gait normal and no focal neuro deficit Cranial nerves: Yes Equal, round and reactive pupils present Cognition (Neuro): normal cognition Gait exam (Neuro): Normal gait present Sensory Exam: No Sensory deficit (Neuro) Psych Appearance: grossly normal Affect: normal affect Attitude: cooperative Thought process: Normal thought process present Coding Level of Care Code Est Pt Level 3 (24543) Diagnoses Hypertension, unspecified type I10 Hypertension type: unspecified Type 2 diabetes mellitus E11.9 Laboratory tests ordered as part of a complete physical exam (CPE) Z00.00 Assessment & Plan Assessment & Plan (1) HTN (hypertension): Code(s): I10 - Essential (primary) hypertension Category: Medical Qualifiers: Hypertension type: unspecified Qualified Code(s): I10 - Essential (primary) hypertension Plan: Resting blood pressure is 110/60, above goal of less than 130/80. Continue current treatment regimen. Advised to get lab work for next visit. Follow-up in 3 months for an extended physical exam, hypertension, diabetes, labs review. Return sooner with symptoms or concerns. Verbalized understanding and agreed with treatment plan. (2) Type 2 diabetes mellitus: Code(s): E11.9 - Type 2 diabetes mellitus without complications Category: Medical Plan: A1c today is 6.0%, above goal of less than 7.0%. Previous A1c was 6.1%. Recent lipid panel level is normal. LDL is 68, within goal of less than 100. Continue current treatment regimen. Follow-up in 3 months. Verbalized understanding and agreed with treatment plan. (3) Laboratory tests ordered as part of a complete physical exam (CPE): Code(s): Z00.00 - Encounter for general adult medical examination without abnormal findings Category: Medical Plan: Fasting labs ordered as part of a complete physical exam. Advised to fast for at least 10 hours before getting labs drawn. May drink water Verbalized understanding and agreed with treatment plan. Orders: Orders AMB Hemoglobin A1c Today Z13.9 - Encounter for screening, unspecified Complete Blood Count Auto Diff Today Z00.00 - Encounter for general adult medical examination without abnormal findings Microalbumin, Random (w Creat) Today Z00.00 - Encounter for general adult medical examination without abnormal findings UA CC w/rflx Micro + Cult Today Z00.00 - Encounter for general adult medical examination without abnormal findings Comprehensive [place]. Panel Fast Today Z00.00 - Encounter for general adult medical examination without abnormal findings Lipid Panel Today Z00.00 - Encounter for general adult medical examination without abnormal findings TSH reflex Free T4 Today Z00.00 - Encounter for general adult medical examination without abnormal findings Vitamin D 25-OH Total Today Z00.00 - Encounter for general adult medical examination without abnormal findings
[2024-07-30 13:04] VITALS: BP 124/58; PULSE 74; RESP 16; TEMP 36.5; O2SAT 97; BMI 34.8
[2024-07-30 13:38] VITALS: BP 110/60
--- OUTSIDE RECORDS SUMMARY | 2024-07-30 14:37 | XMS_ITS | Continuity of Care Document ---
Author Organization [facility] [address] [place] [address] Phone [phone] Care Team Providers Care Technical Support Director Name Role Phone Curry Jewell CNP Care Team Information Receive r [phone] Problems Active Problems Provider Date Hyperlipidemia Lb [...] SIG Qnty Indications Ordering Provider Date Alendronate Zvdjqa19dt Tablets Take 1 Tablet By Mouth Once A Week Curry Jewell CNP Atorvastatin Xyslrkl53ij Tablets Take 1 Tablet By Mouth Daily Curry Jewell CNP Qbjuqmghov69.5mg Tablets Take 1 Tablet By Mouth Twice Daily Curry Jewell CNP Xyzldsxgjw47gn Tablets Take 1 Tablet By Mouth Daily Curry Jewell CNP Lzjcmlgxlk68qz Tablets Take 1 Tablet By Mouth Daily Curry Jewell CNP Aspirin Low Hiks28ei Tablets DR Take 1 Tablet By Mouth [...] [place] Laboratory test finding 05/20/2023 [facility] Lab 25Oh Vitamin D 28.9 [...]
== END 2024-07-30 13:40 | disposition home or self-care (01) ==
PROVIDERS: PCP Nurse Practitioner Family; Visit Provider Nurse Practitioner Family
DX: I10 Essential (primary) hypertension (principal); E11.9 Type 2 diabetes mellitus without complications; Z00.00 Encounter for general adult medical examination without abnormal findings; Z13.9 Encounter for screening, unspecified

== ENCOUNTER → 2024-07-30 12:56 | Outpatient (BNVA) | payer MEDICARE, SELFPAY | PROVIDERS: PCP Nurse Practitioner Family; Visit Provider Nurse Practitioner Family | DX: I10 Essential (primary) hypertension (principal); E11.9 Type 2 diabetes mellitus without complications | CPT/HCPCS: 83036; 99212 ==

== ENCOUNTER 2024-08-17 14:39 | Outpatient (AMB) | payer MEDICARE, SELFPAY ==
--- NOTE | 2024-08-17 14:51 | MHC.OFFVIS ---
Vital Signs 08/17/24 14:54 Height 5 ft 7 in Weight 215 lb BMI 33.7 BP 112/66 Intake Visit Reasons: [employer] annual exam/DO NOT RS Intake Note: Last pap smear 2018, negative. Colonoscopy 2022 Caregivers Non Medical: Caregivers Non Medical Present (Mey) Accompanied by: Self / Same As Patient Allergies No Known Allergies Allergy (Verified 08/17/24 15:01) Is last menstrual period known: No Post menopausal: Yes Patient : No HPI Comments Details: Presenting for annual exam. No complaints. Last Pap/HPV was in 2018 was negative, no history of abnormal Pap smears in the past and the patient has been adequately screenned 10 years prior to the age of 67, according to the patient the no records available Last Mammogram was BI-RADS 1 in 12/16 Last Colonoscopy was 4 years ago, in [place], no records unavailable according to patient the recommendation was to repeat in 5 years Last DEXA scan was in 11/15, the patient had an endocrinology consult recommended to discontinue on alendronate since she has been on it for 5 years [facility] Medical History Atherosclerotic cardiovascular disease High cholesterol HTN (hypertension) Surgical History Hx of tubal ligation Family History Brother HTN (hypertension) History of open heart surgery Father HTN (hypertension) Mother HTN (hypertension) Sister HTN (hypertension) Social History Household Members: None Household Members Other:: son Both parents involved: No Caregiver staying overnight: No Housing: House Are you a primary hearing care practitioner to a significant other at home: No Do you presently have visiting nurse or other home services: No 75 years or older and lives alone: No Alcohol intake: never Patient Tobacco Use Status: Never used Tobacco e-Cigarette/Vaping Use: Never Used service: No Current occupational status: retired Cognitive needs: No Hearing needs: No Vision needs: No Female Reproductive History Menstrual Total pregnancies: 5 Full term: 3 Ab spontaneous: 2 Date of Mammogram: 12/03/23 (bi rad 1) Review of Systems Const All systems reviewed & are unremarkable except as noted in HPI and below Card Reports as per HPI Resp Reports as per HPI GI Reports as per HPI and Reports no additional complaints Reports as per HPI Physical Exam Vital Signs: BMI result Body Mass Index 34.8 Const General: cooperative, healthy appearing and comfortable Chest Chest palpation & inspection: normal inspection of the chest and normal palpation of entire chest wall Breast/axilla inspection: normal inspection of the breasts and normal inspection of the axillae Breast/axilla palpation: normal palpation of the breasts, normal palpation of the axillae and no axillary lymphadenopathy Resp Effort & Inspection: normal respiratory effort Auscultation: clear to auscultation bilaterally Percussion: percussion normal Cardio Palpation: normal PMI Rate: regular rate Rhythm: regular rhythm Heart sounds: no murmurs and no rubs Peripheral pulses: Peripheral pulses 2+ throughout GI Inspection: Yes normal to inspection Palpation (GI): Soft to palpation, nontender, no guarding, not rigid and No hepatosplenomegaly present Percussion: Yes normal to percussion Auscultation: normal bowel sounds Rectal Exam - Female: deferred General: Yes bladder normal to palpation External Female Exam: No lesion Speculum Exam - Vagina: normal appearance of the vagina, normal palpation, normal vaginal discharge and not erythematous Speculum Exam - Cervix: normal appearance of the cervix and normal palpation Bimanual exam- vagina & uterus: normal bimanual exam, normal palpation, uterine size normal, bladder normal to palpation, consistency normal and normal palpation Bimanual Exam- Adnexa, other: normal adnexae, no masses and no tenderness Assessment & Plan Assessment & Plan (1) Well woman exam: Code(s): Z01.419 - Encounter for gynecological examination (general) (routine) without abnormal findings Category: Medical Plan: Co testing not indicated since the patient 's age is above 65 with no history of abnormal Pap smears last 25 years. Counseled the patient about the recommended dietary allowance of 1200 mg of Calcium & 800 IU of vitamin D. Instructions given the patient to schedule next screening Mammogram in 12/17, order placed. Will order DEXA scan, order placed for three-months . The patient was refer to GI for screening colonoscopy The patient was instructed to perform monthly self-breast exams and to schedule a 2 week DEXA scan follow-up appointment and an annual exam in a year; All questions answered and the patient verbalized understanding. Orders: Orders MM tomosynthesis screening BI 4 Months Z12.31 - Encounter for screening mammogram for malignant neoplasm of breast XR DEXA axial skeleton 3 Months Z78.0 - Asymptomatic menopausal state Referrals Gastroenterology Referral Z12.11 - Encounter for screening for malignant neoplasm of colon Coding Level of Care Code Est Pt Prev Care >65y(21586) Diagnoses Well woman exam Z01.419
[2024-08-17 14:54] VITALS: BP 112/66; BMI 33.7
--- OUTSIDE RECORDS SUMMARY | 2024-08-17 18:23 | XMS_ITS | Continuity of Care Document ---
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 Name Role Phone Curry Jewell CNP Care Team Information Receive r [phone] Problems Active Problems Provider Date Hyperlipidemia Lb [...] SIG Qnty Indications Ordering Provider Date Alendronate [id number] Tablets Take 1 Tablet By Mouth Once A Week Curry Jewell CNP Atorvastatin Wcdzlog99ga Tablets Take 1 Tablet By Mouth Daily Curry Jewell CNP Towaehuosh91.5mg Tablets Take 1 Tablet By Mouth Twice Daily Curry Jewell CNP Hogpsjwfim44je Tablets Take 1 Tablet By Mouth Daily Curry Jewell CNP Gktlcsambp91jl Tablets Take 1 Tablet By Mouth Daily Curry Jewell CNP Aspirin Low Dpmx22nt Tablets DR Take 1 Tablet By Mouth [...] Facility Test Result H/L Range N ote 25Oh Vitamin D 05/20/2023 [facility] 25Oh Vitamin D 28.9 NG/ML (20-50) Phosphorus 05/20/2023 [facility] Phosphorus 3.7 mg/dL (2.5-4.5) PTH, Intact 05/20/2023 [facility] PTH, Intact 31 pg/mL (15-65) Medical Devices [...]
== END 2024-08-17 15:12 | disposition home or self-care (01) ==
LOC: HO.HWS 14:39
PROVIDERS: PCP Nurse Practitioner Family; Visit Provider Obstetrics & Gynecology
DX: Z01.419 Encounter for gynecological examination (general) (routine) without abnormal findings (principal)
CPT/HCPCS: 99397; 99459

== ENCOUNTER → 2024-08-17 14:39 | Outpatient (BNVA) | payer OTHER, SELFPAY | PROVIDERS: PCP Nurse Practitioner Family; Visit Provider Obstetrics & Gynecology | DX: Z01.419 Encounter for gynecological examination (general) (routine) without abnormal findings (principal); Z78.0 Asymptomatic menopausal state | CPT/HCPCS: 99397; 99459 ==

== ENCOUNTER 2024-10-16 08:22 | Outpatient (REF) | payer OTHER, SELFPAY ==
--- OUTSIDE RECORDS SUMMARY | 2024-10-16 08:25 | XMS_ITS | Continuity of Care Document ---
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 Onset: 1 Essential hypertension Lb Diaz M.D. O nset: 03/19/2023 Hypercholesterolemia Lb Diaz M.D. Ons et: 03/19/2023 Vitamin D deficiency Lb Diaz M.D. Ons et: 03/19/2023 Osteopenia Lb Diaz M.D. 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 08/23/2024 Atorvastatin Vlghkwg93hn Tablets Take 1 Tablet By Mouth Daily Curry Jewell CNP Wkkrxprtdc53.5mg Tablets Take 1 Tablet By Mouth Twice Daily Curry Jewell CNP Lpngfadkaf52rm Tablets Take 1 Tablet By Mouth Daily Curry Jewell CNP Sonivcmzdu70hi Tablets Take 1 Tablet By Mouth Daily Curry Jewell CNP Aspirin Low Zyit13rf Tablets DR Take 1 Tablet By Mouth Every Day Unknown Isosorbide Mononitrate ER30mg Tablets ER 24HR Take 1/2 Tablet By Mouth Daily Curry JewellBRITNEY Vital Signs Date Vital Result Comment 08/23/2024 10:39am BP Systolic 146 mmHg BP Diastolic 80 mmHg Heart Rate 72 /min Height 68 inches 5'8 Weight 220.00 lb BMI (Body Mass Index) 33.4 kg/m2 Results Test Acquired Date Facility Test Result H/L Range N ote PTH, Intact 08/23/2024 [facility] PTH, Intact <pending> Comp. Metabolic Panel (14) 08/23/2024 [facility] Glucose 149 mg/dL High 70-99 BUN 19 mg/dL 8-27 Creatinine 0.92 mg/dL 0.57-1.00 eGFR 67 mL/min/1.7 3 >59 BUN/Creatinine Ratio 21 12-28 Sodium 142 mmol/L 134-144 Potassium 4.4 mmol/L 3.5-5.2 Chloride 102 mmol/L 96-106 Carbon Dioxide, Total 21 mmol/L 20-29 Calcium 9.1 mg/dL 8.7-10.3 Protein, Total 7.3 g/dL 6.0-8.5 Albumin 3.9 g/dL 3.8-4.8 Globulin, Total 3.4 g/dL 1.5-4.5 Bilirubin, Total 1.0 mg/dL 0.0-1.2 Alkaline Phosphatase 80 IU/L 44-121 Ast (Sgot) 25 IU/L 0-40 Alt (SGPT) 30 IU/L 0-32 TSH Rfx on Abnormal to Free T4 08/23/2024 [facility] TSH Rfx on Abnormal to Free T4 1.040 uIU/mL 0.450-4.5 00 Vitamin D, 25-Hydroxy 08/23/2024 [facility] Vitamin D, 25-Hydroxy 50.4 ng/mL 30.0-100. 0 1 25Oh Vitamin D 05/20/2023 [facility] 25Oh Vitamin D 28.9 NG/ML (20-50) Phosphorus 05/20/2023 [facility] Phosphorus 3.7 mg/dL (2.5-4.5) PTH, Intact 05/20/2023 [facility] PTH, Intact 31 pg/mL (15-65) 1 Vitamin D deficiency has been defined by the [place] of [employer] and an Endocrine Society practice guideline as a level of serum 25-OH vitamin D less than 20 ng/mL (1,2). The Endocrine Society went on to further define vitamin D insufficiency as a level between 21 and 29 ng/mL (2). 1. IOM ([place] of [employer]). 2010. Dietary reference intakes for calcium and D. [place]: The National Academies Press. 2. Santos MF, Vinny NC, Nelson RÍOS, et al. Evaluation, treatment, and prevention of vitamin D deficiency: an Endocrine Society clinical practice guideline. JCEM. 2010; 96(7):1911-30. Medical Devices Description No Information Available Encounters Type Date Location Provider Dx Diagnosis Office Visit 08/23/2024 10:45a Main Office Lb Diaz M.D. M85.80 Oth disrd of bone density and structure, unspecified site Assessments Date Code Description Provider 08/23/2024 M85.80 Osteopenia Lb lopez M.D. Plan of Treatment Future Appointment(s):* 08/23/2025 2:15 pm - Lb Diaz M.D. at Main Office 08/23/2024 - Lb Diaz M.D.* M85.80 Osteopenia * * New Labs:* PTH, Intact, Ordered: 08/23/24 * New Xrays:* Dexa Bone Density Study Axial Skeleton, Ordered: 08/23/24 Functional Status Description No Information Available Mental Status Description No Information Available Referrals Description No Information Available
[2024-10-16 11:05] LABS: MANUAL DIFF FLAG NO
[2024-10-16 11:13] LABS: Basophils Absolute Auto 0.1 X10*3/uL (0.0-0.2); Basophils Percent Auto 0.9 % (0-2); Eosinophils Absolute Auto 0.4 X10*3/uL (0.0-0.4); Eosinophils Percent Auto 5.3 % (0-4); Hematocrit 37.7 % (37.0-47.0); Hemoglobin 11.9 g/dl (12.0-16.0); Imm Gran Abs Auto 0.01 X10*3/uL (0.00-0.03); Imm Gran Pct Auto 0.1 % (0.0-0.4); Lymphocytes Absolute Auto 2.9 X10*3/uL (1.2-4.9); Lymphocytes Percent Auto 42.3 % (20-40); Mean Corpuscular HGB Conc 31.6 g/dl (31.0-35.0); Mean Corpuscular Hemoglobin 27.5 pg (27.0-33.0); Mean Corpuscular Volume 87.1 fL (80.0-98.0); Mean Platelet Volume 12.9 fL (9.4-12.3); Monocytes Absolute Auto 0.6 X10*3/uL (0.1-1.2); Monocytes Percent Auto 8.2 % (2-11); Neutrophils Percent Auto 43.2 % (45-73); Platelet Count 217 X10*3/uL (160-400); Red Blood Count 4.33 X10*6/uL (4.20-5.50); Red Cell Distribution Width 14.4 % (11.0-16.0)
[2024-10-16 11:21] LABS: Appearance Urine Clear; Color Urine Yellow; Glucose Urine UA Negative (Negative); Leukocyte Esterase Urine Trace (Negative); Nitrite Urine Negative (Negative); Specific Gravity - Urine 1.025 (1.005-1.025); UMIC TRIGGER UACC YES; Urine Blood Trace (Negative); Urine Ketones Trace mg/dL (Negative); Urine Protein Trace mg/dL (Neg-Trace)
[2024-10-16 11:29] LABS: Bacteria Urine None Seen (None Seen); Hyaline Casts Urine 0-2 /LPF (0-2); RBC Urine 0-2 /HPF (0-2); Squamous Epithelial Cell Urine 0-2 /HPF (0-2); WBC Urine 0-5 /HPF (0-5)
[2024-10-16 11:44] LABS: Alanine Aminotransferase 31 U/L (0-31); Alkaline Phosphatase 78 U/L (39-117); Anion Gap 14 (12-20); Aspartate Amino Transferase 31 U/L (5-31); Bilirubin Total 1.2 mg/dL (0.0-1.0); Blood Urea Nitrogen 18 mg/dL (9-16); Calcium 8.9 mg/dL (8.4-10.2); Carbon Dioxide 25 mmol/L (22-29); Chloride 107 mmol/L (96-108); Cholesterol 111 mg/dL (<200); Estimated Glomerular Filt Rate > 60; Glucose Fasting 108 mg/dL (60-99); HDL Cholesterol 31 mg/dL (>40); LDL Cholesterol Calculated 62 mg/dL (<100); Potassium 4.1 mmol/L (3.3-5.1); Sodium 142 mmol/L (135-145); TSH reflex Free T4 1.08 uIU/mL (0.32-4.0); Total Protein 7.6 g/dL (6.5-8.0); Triglycerides 92 mg/dL (<150); Vitamin D 25-OH Total 64.9 ng/mL (>30)
[2024-10-16 11:52] LABS: Creatinine Urine 258.79 mg/dL; Microalbum/Creatinine Ratio Ur 8.1 ug/mg cr (<30)
[2024-10-16 11:54] LABS: Parathyroid Hormone Intact 58.4 pg/mL (8.7-77.1)
== END 2024-10-16 08:23 | disposition home or self-care (01) ==
LOC: HO.HMGCLDS 08:22
PROVIDERS: PCP Nurse Practitioner Family; Referring Provider Internal Medicine Endocrinology, Diabetes & Metabolism; Visit Provider Nurse Practitioner Family
DX: Z00.00 Encounter for general adult medical examination without abnormal findings (principal); M85.80 Other specified disorders of bone density and structure, unspecified site; Z13.6 Encounter for screening for cardiovascular disorders
CPT/HCPCS: 36415; 80053; 80061; 81001; 82043; 82306; 82570; 83970; 84443; 85025

== ENCOUNTER 2025-01-04 10:00 | Outpatient (AMB) | payer OTHER, SELFPAY ==
--- NOTE | 2025-01-04 10:05 | MHC.PC.OV ---
Vital Signs 01/04/25 10:15 01/04/25 10:31 Height 5 ft 7 in Weight 203 lb 5 oz BMI 31.8 BP 136/72 120/70 Blood Pressure Location Rt brachial Lt brachial Position Sitting Sitting Respiration 16 Pulse 71 Pulse Source Pulse Oximeter Temp 97.2 F Temp Source Temporal Artery Scan Pulse Oximetry (%) 95 Oxygen Delivery Method Room Air Intake Visit Reasons: Annual physical Intake Note: Mariann presents in the office today for her annual physical. Post menopausal: Yes Allergies No Known Allergies Allergy (Verified 01/04/25 10:24) Medication List - Last Reconciled 01/04/25 by Fanta Zapien CNP acetaminophen (Tylenol) 650 mg (2 x 325 mg) PO Q6H PRN aspirin 81 mg PO DAILY atorvastatin 80 mg PO DAILY 90 days blood sugar diagnostic (FreeStyle Lite Strips) Blood glucose testing three times daily blood-glucose meter (FreeStyle Lite Meter kit) Blood glucose testing three times daily carvedilol 25 mg (2 x 12.5 mg) PO BID 90 days cholecalciferol (vitamin D3) 25 mcg PO DAILY 90 days furosemide 20 mg PO DAILY 90 days isosorbide mononitrate ER 15 mg (1/2 x 30 mg) PO DAILY 90 days lancets (FreeStyle Lancets) Glucose testing three times daily lisinopril 40 mg PO DAILY 90 days metformin 500 mg PO BIDWMEAL 30 days miscellaneous medical supply One large blood pressure cuff/monitor Tobacco use date assessed: 01/04/25 Fall risk assessment: No Falls in past year Last assessed Fall Risk: 01/04/25 Dental Screening Dental Screen Date: 01/04/25 Did you have a dental visit in the last 12 months?: Yes Did you have a dental problem in the last 6 months where you did not have access to dental care?: No Was dental information given to patient?: Patient has dentist HPI HPI Comments History of Present Illness Details 74-year-old Turkish-speaking female, accompanied by her son, presents for an extended physical exam, hypertension, diabetes, and review of recent lab results. She admits to taking her medications as prescribed without adverse reactions She offers no complaints and denies acute symptoms at this time. Acute issue(s) - Reports intermittent chronic to her mid lower back for the past several years. The pain usually last for few days. He denies associated tingling or numbness or radiation to her extremities. She denies loss of bladder or bowel control. The pain is currently moderate and improves with Tylenol. Past Medical History - Hypertension, hyperlipidemia, type 2 diabetes, myopia, vitamin-D deficiency, osteopenia, coronary artery disease with LAD stenting, chronic back and right knee pain, anxiety, and depression Social History - Nonsmoker. Does not vape. Drinks 2-3 beers twice monthly. Denies recreational drug use - Has been making healthy dietary choices. Exercises routinely. Reports difficulty staying asleep She snores heavily per her son and never had a sleep study done Health maintenance - Last eye exam was with [facility] in 2023. Encouraged to signed a release for her PCP to obtain ophthalmology record - Last in 03/2024 - Last tetanus vaccine was more than 10 years ago; received Tdap vaccine today - Has not been vaccinated for the flu this season; declines vaccination - She had PPSV in 10/17/2017 - She notes she had shingles vaccine in [place] over 3 years ago - She notes that her last pap smear test was in 11/17/2018: Normal. She no longer performs pap smear test - Last mammogram was in 12/03/2023: Normal. She has mammogram scheduled with [facility] [place] - She notes that her last colonoscopy was 3 years ago in [place]: Normal. She has colonoscopy scheduled with [facility] gastro[place]ology in 03/11/2025 - Last dexa scan was in 11/22/2022: Osteopenia. She has dexa scan scheduled with [facility] in 01/07/2025 Specialists - [facility] cardiology and finisher wallboard and plasterboard Interpretation by the patient's son per patient's preference. [facility] Medical History Atherosclerotic cardiovascular disease High cholesterol HTN (hypertension) Surgical History Hx of tubal ligation Family History Brother HTN (hypertension) History of open heart surgery Father HTN (hypertension) Mother HTN (hypertension) Sister HTN (hypertension) Social History Household Members: None Household Members Other:: son Both parents involved: No Caregiver staying overnight: No Housing: House Are you a primary adult live in caregiver to a significant other at home: No Do you presently have visiting nurse or other home services: No 75 years or older and lives alone: No Alcohol intake: never Patient Tobacco Use Status: Never used Tobacco e-Cigarette/Vaping Use: Never Used Second Hand Smoke Exposure: No service: No Current occupational status: retired Cognitive needs: No Hearing needs: No Vision needs: No Questionnaire PHQ-9 Over the last 2 weeks, how often have you been bothered by any of the following problems? 1. Little interest or pleasure in doing things: not at all 2. Feeling down, depressed, or hopeless: not at all 3. Trouble falling or staying asleep, or sleeping too much: several days 4. Feeling tired or having little energy: not at all 5. Poor appetite or overeating: several days 6. Feeling bad about yourself - or that you are a failure or have let yourself or your family down: not at all 7. Trouble concentrating on things, such as reading the newspaper or watching television: not at all 8. Moving or speaking so slowly that other people could have noticed. Or the opposite - being so fidgety or restless that you have been moving around a lot more than usual: not at all 9. Thoughts that you would be better off or of hurting yourself in some way: not at all Total score: 2 Depression Screening Interpretation: Negative Depression Screening Done: Yes 97455 - PHQ-9 Billing: Yes Source: Developed by Drs. Michele Weaver, Suly Sheets, Greg Gibbons and colleagues, with an educational jemima from [employer]. Thrive Questionnaire Date Thrive assessed: 01/04/25 I am a: Patient What is your living situation today?: I have a steady place to live Within the past 12 months, did the food you bought not last and you didn't have the money to get more?: I choose not to answer this question Within the past 12 months, did you worry whether your food would run out before you got money to buy more?: I choose not to answer this question Do you have trouble paying for medicines?: No Do you have trouble getting transportation to medical appointments?: No Do you have trouble paying your heating and electricity bill?: No Do you have trouble taking care of your child, family member or friend?: Yes Do you have trouble with day-to-day activities such as bathing, preparing meals, shopping, managing finances, etc.?: No Are you currently unemployed and looking for a job?: No Are you interested in more education?: I choose not to answer this question Please select the resources that you would like help with: None Currently or been in a relationship where the following occur: I choose not to answer THRIVE Score: 0 AUDIT C Alcohol Use Questionnaire (AUDIT-C) 1. How often do you have a drink containing alcohol?: Never 3. How often do you have six or more drinks on one occasion?: Never Total Score: 0 Score Reviewed/Action Taken: Yes ANKIT-7 AMB Questionnaire ANKIT-7 Date ANKIT - 7 assessed: 01/04/25 Feeling nervous, anxious, or on edge: 0 = Not at all Not being able to stop or control worryin = Not at all Worrying too much about different things: 0 = Not at all Trouble relaxin = Not at all Being so restless that it is hard to sit still: 0 = Not at all Becoming easily annoyed or irritable: 0 = Not at all Feeling afraid as if something awful might happen: 0 = Not at all Total ANKIT-7 score (0-4 normal; 5-9 mild; 10-14 moderate; 15-21 severe): 0 Source: Developed by Drs. Michele Weaver, Suly Sheets, Greg Gibbons and colleagues, with an educational jemima from [employer]. ANKIT-7 Assessment Billing ANKIT-7 Assessment Tool: ANKIT-7 Assessment 93326 Review of Systems Const Details: Denies chills, Denies fatigue, Denies fever(s), Denies headache(s) and Denies weakness HEENT Denies change in vision, Denies dizziness, Denies headache(s), Denies hearing loss, Denies nasal congestion, Denies sinus pain, Denies sinus pressure and Denies sore throat Card Denies chest pain, Denies lightheadedness, Denies dyspnea and Denies other (palpitations) Resp Denies cough, Denies dyspnea and Denies wheezing GI Denies abdominal pain, Denies melena, Denies hematochezia, Denies change in bowel habits, Denies dyspepsia and Denies nausea Denies hematuria and Denies dysuria Musc Reports as per HPI Skin/Breast Denies rash, Denies unusual bruising and Denies wounds Neuro Denies abnormal gait, Denies dizziness, Denies headache(s), Denies memory loss, Denies numbness, Denies Sensory deficit (Neuro), Denies tingling and Denies weakness Psych Denies anxiety, Denies depression and Denies memory loss Endo Denies cold intolerance, Denies fatigue, Denies heat intolerance, Denies polydipsia and Denies polyuria Heath/Lymph Denies easy bleeding and Denies easy bruising Aller/Immun Denies wheezing Physical exam (Primary Care) Vital Signs: Last Vital Signs Temp 97.2 F 01/04/25 10:15 Pulse 71 01/04/25 10:15 Resp 16 01/04/25 10:15 BP 120/70 01/04/25 10:31 Pulse Ox 95 01/04/25 10:15 Oxygen Delivery Method Room Air 01/04/25 10:15 BMI result Body Mass Index 31.8 Tobacco/Smoking Status: Tobacco use Status Tobacco use date assessed 01/04/25 01/04/25 10:14 Patient Tobacco Use Status Never used Tobacco 01/04/25 10:12 Tobacco use type 12/10/22 15:03 e-Cigarette/Vaping Use Never Used 01/04/25 10:12 PHQ-9: PHQ-9 Score PHQ-9: Total score 2 01/04/25 10:23 Depression Screening Interpretation: Negative Thrive Assessment: Date of Thrive Assessment Date Thrive assessed 01/04/25 01/04/25 10:23 Currently or been in a relationship where the following occur: I choose not to answer Const Other: General: no acute distress, well developed, alert and awake Nutritional Appearance: well nourished Orientation/consciousness: patient oriented x3 HENMT Head: Yes normocephalic and Yes atraumatic Ears: hearing grossly normal bilaterally and TM's normal bilaterally General nose exam: Normal external nose present and Normal nares present Mouth: Normal oral and palatal mucosa present and moist mucous membranes Teeth and gingiva: dentition normal Throat: Yes oropharynx normal Eyes Pupils: Equal, round and reactive pupils present and Pupil accommodation reflex normal EOM: EOMs intact bilaterally Neck Neck: Yes normal visual inspection, Yes no lymphadenopathy and Yes trachea midline Thyroid: Thyroid normal Carotids: no bruits Lymphatic: no lymphadenopathy noted Chest Chest palpation & inspection: normal inspection of the chest Resp Effort & Inspection: normal respiratory effort Auscultation: clear to auscultation bilaterally Cardio Rate: regular rate Rhythm: regular rhythm Heart sounds: S1 normal heart sound present, S2 normal heart sound present, no gallops, no murmurs and no rubs Bruits: no abdominal aortic bruits and no carotid bruits GI Palpation (GI): No Abdominal aortic bruit present, Soft to palpation, nontender, No hepatosplenomegaly present and No Rebound tenderness present Auscultation: normal bowel sounds General: Yes no CVA tenderness Back/Spine/Pelvis Back: no CVA tenderness Cervical Spine: cervical ROM normal and No Cervical spine tenderness Thoracic/Lumbar Spine: thoraco-lumbar ROM normal, No pain with thoraco-lumbar ROM, No thoracic spinal tenderness and positive lumbar spinal tenderness Skin General: warm and dry. Normal skin color. Normal skin turgor Lesions: no lesions Rashes: no rashes Trauma: no lacerations or abrasions Wounds: no wounds Nails: normal Neuro General: patient oriented x3, gait normal and CN's II-XI intact bilaterally Cranial nerves: Yes Equal, round and reactive pupils present Cognition (Neuro): normal cognition Gait exam (Neuro): Normal gait present Motor exam (neuro): 5/5 motor strength present throughout Sensory Exam: No Sensory deficit (Neuro) Deep tendon reflexes (DTR's): Right patellar reflex intensity grade: 2+ and Left patellar reflex intensity grade: 2+ Extrem General: Yes normal to inspection, No edema and No calf tenderness Psych Appearance: grossly normal Affect: normal affect Attitude: cooperative Thought process: Normal thought process present Results AMB Hemoglobin A1c AMB Hemoglobin A1c 5.6 % Last Edit by Leigh Ann Kulkarni MA on 01/04/25 10:26 Immunizations Boostrix Tdap 2.5 Lf unit-8 mcg-5 Lf/0.5 mL intramuscular syringe Performing Provider: Fanta Zapien CNP Performing Location: [facility] Administered by: Pj Rodríguez RN on 01/04/25 11:10 Dose Route Admin Location Dispensed Lot Number Expiration Date [facility] [place]NOTE 2] Toxics Program Officer 0.5 mL IM Left Deltoid 0.5 mL [id number] 03/15/27 61838-554-29 [employer] Total Dispensed Waste 0.5 mL 0 % VIS Given Date VIS Provided VIS Publication Date 01/04/25 Single Vaccine 20 Eligibility Eligibility Date Funding Source Not [facility] Eligible 01/04/25 Private Results Reviewed Results Reviewed: Laboratory Last Values Hgb A1c (Clinic) 5.6 % (4.0-6.0) 01/04/25 10:19 Coding Level of Care Code Est Pt Level 4 (16042) Est Pt Prev Care >65y(40918) Diagnoses Normal physical examination, routine Z00.00 Type 2 diabetes mellitus E11.9 Hypertension, unspecified type I10 Hypertension type: unspecified Back pain M54.9 Back pain location: thoracic back pain Sleep disturbance G47.9 Additional Codes ANKIT-7 Assessment Billing - ANKIT-7 Assessment Tool: ANKIT-7 Assessment 61880 ([id number]) PHQ-9 - 52977 - PHQ-9 Billing: Yes ([id number]) Assessment & Plan Assessment & Plan (1) Normal physical examination, routine: Code(s): Z00.00 - Encounter for general adult medical examination without abnormal findings Category: Medical Plan: No significant functional limitation noted. Continue current treatment regimen. Healthy diet and routine exercise encouraged. Follow-up for hypertension and diabetes in 3 months. Return sooner with symptoms or concerns. Verbalized understanding and agreed with the plan. (2) Type 2 diabetes mellitus: Code(s): E11.9 - Type 2 diabetes mellitus without complications Category: Medical Plan: A1c today is 5.6%, within goal of less than 7.0%. Previous A1c was 6.0%. Recent LDL is 62. Recent urine microalbumin/creatinine ratio is normal, 8.1. Last eye exam was in 2023. Continue current treatment regimen. ADA diet and routine exercise encouraged. Follow-up in 3 months. Verbalized understanding and agreed with the plan. (3) HTN (hypertension): Code(s): I10 - Essential (primary) hypertension Category: Medical Qualifiers: Hypertension type: unspecified Qualified Code(s): I10 - Essential (primary) hypertension Plan: Continue current treatment regimen. Low-sodium diet and routine exercise encouraged. Follow-up in 3 months. Verbalized understanding and agreed with the the plan. (4) Back pain: Code(s): M54.9 - Dorsalgia, unspecified Category: Medical Qualifiers: Back pain location: thoracic back pain Plan: Reports intermittent chronic to her mid lower back for the past several years. The pain usually last for few days. He denies associated tingling or numbness or radiation to her extremities. She denies loss of bladder or bowel control. The pain is currently moderate and improves with Tylenol. Lumbar spine tenderness. Continue to take Tylenol as needed. Warm/cool compresses encouraged. X-ray ordered. Follow-up with worsening or new symptoms. Verbalized understanding and agreed with treatment plan. (5) Sleep disturbance: Code(s): G47.9 - Sleep disorder, unspecified Category: Medical Plan: Reports difficulty staying asleep She snores heavily per her son and never had a sleep study done. Instructed on sleep hygiene. May take melatonin as needed. Referred to [facility] sleep medicine for a sleep study. Orders: Orders TDaP Immunization Today Z23 - Encounter for immunization AMB Hemoglobin A1c Today E11.9 - Type 2 diabetes mellitus without complications XR lumbar spine 2-3V Today M54.9 - Dorsalgia, unspecified Referrals Sleep Medicine Referral G47.9 - Sleep disorder, unspecified
[2025-01-04 10:15] VITALS: BP 136/72; PULSE 71; RESP 16; TEMP 36.2; O2SAT 95; BMI 31.8
[2025-01-04 10:31] VITALS: BP 120/70
--- OUTSIDE RECORDS SUMMARY | 2025-01-04 10:57 | XMS_ITS | Continuity of Care Document ---
Author Organization [facility] [address] [place] [address] Phone [phone] Care Team Providers Care Skein Yarn Drier Name Role Phone Curry Jewell CNP Care Team Information Receive r [phone] Problems Active Problems Provider Date Hyperlipidemia Lb Diaz M.D. Onset: 1 Essential hypertension Lb Diaz M.D. O nset: 03/19/2023 Hypercholesterolemia Lb Diaz M.D. Ons et: 03/19/2023 Vitamin D deficiency Lb Diaz M.D. Ons et: 03/19/2023 Osteopenia Lb Diaz M.D. Onset: 0 08/23/2024 Social History Type Date Description Comments Sex Female Sex Unknown Lives With Son Tobacco Use Start: Unknown Never Smoked Cigarettes Smoking Status Reviewed: 05/20/23 Never Smoked Cigaret alicia ETOH Use Rarely consumes alcohol Allergies and adverse reactions Description No Known Drug Allergies Medications Active Medications SIG Qnty Indications Ordering Provider Date Vitamin D3 Adult Thokbyi18ijp (1000 Ut) Chewtabs 1 by mouth every day Lb Diaz M.D. 08/23/2024 Atorvastatin Plbzcqj48ew Tablets Take 1 Tablet By Mouth Daily Curry Jewell CNP Fiutxrsijp81.5mg Tablets Take 1 Tablet By Mouth Twice Daily Curry Jewell CNP Bhlqyfyzvg20fq Tablets Take 1 Tablet By Mouth Daily Curry Jewell CNP Jwoakjubng73nd Tablets Take 1 Tablet By Mouth Daily Curry Jewell CNP Aspirin Low Lyku73xw Tablets DR Take 1 Tablet By Mouth Every Day Unknown Isosorbide Mononitrate ER30mg Tablets ER 24HR Take 1/2 Tablet By Mouth Daily Currynolberto JewellBRITNEY Vital Signs Date Vital Result Comment [...] Vitamin D 28.9 NG/ML (20-50) Phosphorus 05/20/2023 [facility] Phosphorus 3.7 mg/dL (2.5-4.5) PTH, Intact 05/20/2023 [facility] PTH, Intact 31 pg/mL (15-65) 1 Vitamin D deficiency has been defined by the [place] of [employer] and an Endocrine Society practice guideline as a level of serum 25-OH vitamin D less than 20 ng/mL (1,2). The Endocrine Society went on to further define vitamin D insufficiency as a level between 21 and 29 ng/mL (2). 1. IOM ([place] of Medicine). 2010. Dietary reference intakes for [...]
== END 2025-01-04 10:53 | disposition home or self-care (01) ==
LOC: HO.HMCFM 10:01
PROVIDERS: PCP Nurse Practitioner Family; Visit Provider Nurse Practitioner Family
DX: Z00.00 Encounter for general adult medical examination without abnormal findings (principal); E11.9 Type 2 diabetes mellitus without complications; I10 Essential (primary) hypertension; M54.9 Dorsalgia, unspecified; G47.9 Sleep disorder, unspecified; Z23 Encounter for immunization

== ENCOUNTER → 2025-01-04 10:00 | Outpatient (BNVA) | payer OTHER, SELFPAY | PROVIDERS: PCP Nurse Practitioner Family; Visit Provider Nurse Practitioner Family | DX: Z00.00 Encounter for general adult medical examination without abnormal findings (principal); I10 Essential (primary) hypertension; E11.9 Type 2 diabetes mellitus without complications; M54.9 Dorsalgia, unspecified; Z23 Encounter for immunization | CPT/HCPCS: 83036; 90471; 90715; 96127; 99212; 99397 ==

== ENCOUNTER 2025-01-07 13:58 | Outpatient (REF) | payer OTHER, SELFPAY ==
--- NOTE | ~2025-01-07 | MM_ITS ---
EXAMINATION: DXA BONE DENSITY AXIAL HISTORY: Z78.0 - Asymptomatic menopausal state TECHNIQUE: [employer] Dual energy absorptiometry (DEXA) of the lumbar spine, total left hip, and femoral neck was performed. COMPARISON: Comparison is made with the prior examination dated 11/22/2022. FINDINGS: The bone mineral density of the lumbar spine is 1.308 g/cm2, corresponding to a T-score of 1.1, and a Z-score of 1.8. This is indicative of normal bone mineral density. This represents a BMD change of 4.8% compared to the prior exam. This is statistically significant. The bone mineral density of the left total hip is 0.929 g/cm2, corresponding to a T-score of -0.6, and a Z-score of 0.2. This is indicative of normal bone mineral density. This represents a BMD change of 1.9% compared to the prior exam. This is not statistically significant. The bone mineral density of the left femoral neck is 0.808 g/cm2, corresponding to a T-score of -1.7, and a Z-score of -0.5. This is indicative of osteopenia. This represents a BMD change of 5.5% compared to the prior exam. FRACTURE RISK: The FRAX index suggests a ten year probability of major osteoporotic fracture of 5.9%, and of hip fracture 1.0%. MM/XR DEXA axial skeleton IMPRESSION: Based on bone mineral density, and according to World Health Organization (WHO) criteria, the diagnosis is consistent with osteopenia. Statistically, 68% of repeat scans fall within 1 SD (+/- 0.010 g/cm2 for AP spine L1-L4) and 1 SD (+/- 0.012 g/cm2 for femur total) FRAX is a trademark of the [employer]'s [place] for Metabolic Bone Disease, a World Health Organization (WHO) Collaborating Center. Electronically signed by: Michele Drummond MD 01/07/2025 03:23 PM EDT
--- NOTE | ~2025-01-07 | MM_ITS ---
EXAMINATION: MM SCREENING DIGITAL BREAST TOMOSYNTHESIS, BILATERAL CLINICAL INFORMATION: Screening. Asymptomatic. COMPARISON: December 03, 2023 and November 22, 2022 TECHNIQUE: Digital breast tomosynthesis is performed in both the craniocaudal and mediolateral oblique views along with computer-aided detection (CAD). FINDINGS: BREAST COMPOSITION: There are scattered areas of fibroglandular density (ACR BI-RADS breast composition Category b). BILATERAL BREASTS: No significant masses, suspicious calcifications or other abnormalities are seen in either breast. MM/MM tomosynthesis screening BI IMPRESSION: BILATERAL BREASTS: Negative, no mammographic evidence of malignancy. Normal interval follow-up is recommended in 12 months. ASSESSMENT: BI-RADS 1 - Negative RECOMMENDATION: Routine annual mammography screening. FOLLOW-UP: 1 year F/U This examination should not preclude the clinical evaluation of a suspicious palpable abnormality. This patient's information was entered into a reminder system with a target due date for their next mammogram. Electronically signed by: Елена Hope MD 01/11/2025 03:26 PM EDT
--- OUTSIDE RECORDS SUMMARY | 2025-01-07 14:01 | XMS_ITS | Continuity of Care Document ---
Author Organization [facility] [address] [place] [address] Phone [phone] Care Team Providers Care Refrigerating Oiler Name Role Phone Curry Jewell CNP Care Team Information Receive r [phone] Problems Active Problems Provider Date Hyperlipidemia Lb [...] Indications Ordering Provider Date Vitamin D3 Adult Wkmfvzr61qta (1000 Ut) Chewtabs 1 by mouth every day Lb Diaz M.D. 08/23/2024 Atorvastatin Lkgydps29xo Tablets Take 1 Tablet By Mouth Daily Curry Jewell CNP Sljnmwemak47.5mg Tablets Take 1 Tablet By Mouth Twice Daily Curry Jewell CNP Rrgrnfshis12gh Tablets Take 1 Tablet By Mouth Daily Curry Jewell CNP Zwxxbcways02tq Tablets Take 1 Tablet By Mouth Daily Curry Jewell CNP Aspirin Low Mzep15ph Tablets DR Take 1 Tablet By Mouth [...] Vitamin D 28.9 NG/ML (20-50) Phosphorus 05/20/2023 [facility] Phosphorus 3.7 mg/dL (2.5-4.5) PTH, Intact 05/20/2023 [facility] PTH, Intact 31 pg/mL (15-65) 1 Vitamin D deficiency has been defined by the [place] of [employer] and an Endocrine Society practice guideline as a level of serum 25-OH vitamin D less than 20 ng/mL (1,2). The Endocrine Society went on to further define vitamin D insufficiency as a level between 21 and 29 ng/mL (2). 1. IOM ([place] of Medicine). 2010. Dietary reference intakes for [...] Code Description Provider 08/23/2024 M85.80 Osteopenia Lb olpez M.D. Plan of Treatment Future Appointment(s):* 08/23/2025 [...]
== END 2025-01-07 13:59 | disposition home or self-care (01) ==
LOC: HO.MAMMO 13:58
PROVIDERS: PCP Nurse Practitioner Family; Visit Provider Nurse Practitioner Family
DX: Z12.31 Encounter for screening mammogram for malignant neoplasm of breast (principal); Z13.820 Encounter for screening for osteoporosis; Z78.0 Asymptomatic menopausal state
CPT/HCPCS: 77063; 77067; 77080

== ENCOUNTER → 2025-01-07 14:30 | Outpatient (BNV) | payer OTHER, SELFPAY | PROVIDERS: PCP Nurse Practitioner Family; Visit Provider Radiology Diagnostic Radiology | DX: E28.39 Other primary ovarian failure (principal) | CPT/HCPCS: 77080 ==

== ENCOUNTER 2025-01-10 14:15 | Outpatient (AMB) | payer OTHER, SELFPAY ==
--- NOTE | 2025-01-10 14:29 | MHC.OFFVIS ---
Vital Signs 01/10/25 14:30 Height 5 ft 7 in Weight 200 lb 9.93 oz BMI 31.4 BP 108/62 Blood Pressure Location Lt brachial Position Sitting Pulse 67 Pulse Source Monitor Intake Visit Reasons: 1 yr f/up Pl Sql Programmer Required: Yes Pl Sql Programmer Services: Pl Sql Programmer Offered & Declined Accompanied by: Son Allergies No Known Allergies Allergy (Verified 01/04/25 10:24) Medication List - Last Reconciled 01/10/25 by Ariel Montgomery MD acetaminophen (Tylenol) 650 mg (2 x 325 mg) PO Q6H PRN aspirin 81 mg PO DAILY atorvastatin 80 mg PO DAILY 90 days blood sugar diagnostic (FreeStyle Lite Strips) Blood glucose testing three times daily blood-glucose meter (FreeStyle Lite Meter kit) Blood glucose testing three times daily carvedilol 25 mg (2 x 12.5 mg) PO BID 90 days cholecalciferol (vitamin D3) 25 mcg PO DAILY 90 days furosemide 20 mg PO DAILY 90 days isosorbide mononitrate ER 15 mg (1/2 x 30 mg) PO DAILY 90 days lancets (FreeStyle Lancets) Glucose testing three times daily lisinopril 40 mg PO DAILY 90 days metformin 500 mg PO BIDWMEAL 30 days miscellaneous medical supply One large blood pressure cuff/monitor HPI Comments Details: Mariann returns for follow-up. She carries a diagnosis of coronary artery disease and LAD stenting from [place]. It seems that around 2019, she was complaining of exertional chest pain. Echocardiogram had shown evidence of wall motion abnormalities along the LAD distribution. Then it seems that she underwent an exercise stress perfusion imaging study that was positive with inducible ischemia again in the LAD territory. Followed by cardiac catheterization that found 99% mid LAD stenosis requiring stenting. After that, it seems she got better. Since last seen, she states she feels good. No concerns from cardiac standpoint. No angina or shortness of breath or in fact any other symptoms. Getting along fine. [facility] Medical History Atherosclerotic cardiovascular disease High cholesterol HTN (hypertension) Surgical History Hx of tubal ligation Family History Brother HTN (hypertension) History of open heart surgery Father HTN (hypertension) Mother HTN (hypertension) Sister HTN (hypertension) Social History Household Members: None Household Members Other:: son Both parents involved: No Caregiver staying overnight: No Housing: House Are you a primary career development engineer to a significant other at home: No Do you presently have visiting nurse or other home services: No 75 years or older and lives alone: No Alcohol intake: never Patient Tobacco Use Status: Never used Tobacco e-Cigarette/Vaping Use: Never Used Second Hand Smoke Exposure: No service: No Current occupational status: retired Cognitive needs: No Hearing needs: No Vision needs: No Review of Systems Const Denies weakness ENT Denies dizziness Card Denies chest pain, Denies chest pain with activity, Denies syncope, Denies rapid heart rate, Denies pedal edema, Denies edema, Denies leg edema, Denies lightheadedness, Denies palpitations, Denies dyspnea, Denies dyspnea on exertion and Denies orthopnea Resp Denies cough, Denies dyspnea and Denies dyspnea on exertion GI Denies hematochezia and Denies change in stool character Musc Denies abnormal gait, Denies muscle cramps, Denies muscle weakness, Denies numbness, Denies radiating pain into limb and Denies tingling Neuro Denies abnormal gait, Denies dizziness, Denies syncope, Denies numbness, Denies tingling and Denies weakness Endo Denies palpitations Physical Exam Vital Signs: Last Vital Signs Pulse 67 01/10/25 14:30 BP 108/62 01/10/25 14:30 BMI result Body Mass Index 31.4 Const General: comfortable and no acute distress Orientation/consciousness: patient oriented x3 HEENT Other: Unremarkable Head: Yes normal to inspection Neck Neck: Yes normal visual inspection Chest Chest palpation & inspection: normal inspection of the chest Resp Auscultation: clear to auscultation bilaterally Cardio Palpation: normal PMI Heart sounds: S1 normal heart sound present, S2 normal heart sound present, no gallops, no murmurs and no rubs GI Palpation (GI): Soft to palpation Back/Spine/Pelvis Other: unremarkable Skin General skin exam: no rashes or lesions noted Neuro General: patient oriented x3 Extrem General: Yes normal to inspection Psych Mental Status: mental status grossly normal Office Procedures EKG Details: EKG with underlying sinus rhythm at 67/Min; low-voltage QRS complexes; no ischemic changes; [place]. [id number]-[id number], Complete Assessment & Plan Assessment & Plan (1) Atherosclerotic cardiovascular disease: Code(s): I25.10 - Atherosclerotic heart disease of [place] coronary artery without angina pectoris Category: Medical Plan: Status post LAD PCI in 2019. Remains on aspirin, beta-blockers and statins. Free of angina. LDL cholesterol 62 mg/dL and triglycerides 72 mg/dL. In the echocardiogram, LVEF 55-60%; basal inferior akinesis and basal inferoseptal hypokinesis. Clinically, in the absence of angina, we will monitor her on medical therapy. (2) HTN (hypertension): Code(s): I10 - Essential (primary) hypertension Category: Medical Qualifiers: Hypertension type: unspecified Qualified Code(s): I10 - Essential (primary) hypertension Plan: On carvedilol/lisinopril. Blood pressure seems okay. Plan Discussion Notes I discussed with the patient the importance of continuing her current medication regimen to manage her hypertension and hyperlipidemia effectively. We reviewed her recent lab results, which show good control of her cholesterol levels, and emphasized the need for regular monitoring. The patient was advised to maintain her physical activity and to report any new symptoms immediately. A follow-up appointment is scheduled for one year, with instructions to contact the clinic if any issues arise before then. Patient was informed and verbally consented to the use of an ambient scribe for clinic note documentation during this visit. Patient Instructions: - Continue taking lisinopril, atorvastatin, aspirin, and carvedilol as prescribed. - Maintain regular physical activity, such as walking and using stairs. - Monitor for any new symptoms like chest pain or unusual fatigue and report them immediately. - Schedule a follow-up appointment in one year or sooner if any concerns arise. Coding Level of Care Code Est Pt Level 4 (84935) Diagnoses Atherosclerotic cardiovascular disease I25.10 Hypertension, unspecified type I10 Hypertension type: unspecified CPT Codes EKG - CPT: 75481-Rijkwetiicubrfklz, Complete ([id number])
[2025-01-10 14:30] VITALS: BP 108/62; PULSE 67; BMI 31.4
--- OUTSIDE RECORDS SUMMARY | 2025-01-10 15:02 | XMS_ITS | Continuity of Care Document ---
Author Organization [facility] [address] [place] [address] Phone [phone] Care Team Providers Care Merchandising Execution Manager Name Role Phone Curry Jewell CNP Care Team Information Receive r [phone] Problems Active Problems Provider Date Hyperlipidemia Lb [...] Indications Ordering Provider Date Vitamin D3 Adult Jagceay41onx (1000 Ut) Chewtabs 1 by mouth every day Lb Diaz M.D. 08/23/2024 Atorvastatin Jxgcksy89mj Tablets Take 1 Tablet By Mouth Daily Curry Jewell CNP Kgnztevtbj61.5mg Tablets Take 1 Tablet By Mouth Twice Daily Curry Jewell CNP Vpwaurwmwc91jy Tablets Take 1 Tablet By Mouth Daily Curry Jewell CNP Kovzwbyqed93wc Tablets Take 1 Tablet By Mouth Daily Curry Jewell CNP Aspirin Low Gbdm24db Tablets DR Take 1 Tablet By Mouth [...] Vitamin D 28.9 NG/ML (20-50) Phosphorus 05/20/2023 [facility] Phosphorus 3.7 mg/dL (2.5-4.5) PTH, Intact 05/20/2023 [facility] PTH, Intact 31 pg/mL (15-65) 1 Vitamin D deficiency has been defined by the [place] of [employer] and an Endocrine Society practice guideline as a level of serum 25-OH vitamin D less than 20 ng/mL (1,2). The Endocrine Society went on to further define vitamin D insufficiency as a level between 21 and 29 ng/mL (2). 1. IOM ([place] of Medicine). 2010. Dietary reference intakes for [...]
== END 2025-01-10 14:56 | disposition home or self-care (01) ==
LOC: HO.HCS 14:16
PROVIDERS: Visit Provider Internal Medicine
DX: I25.10 Atherosclerotic heart disease of native coronary artery without angina pectoris (principal); I10 Essential (primary) hypertension
CPT/HCPCS: 93010; 99214

== ENCOUNTER → 2025-01-10 14:15 | Outpatient (BNVA) | payer OTHER, SELFPAY | PROVIDERS: Visit Provider Internal Medicine | DX: I25.10 Atherosclerotic heart disease of native coronary artery without angina pectoris (principal); I10 Essential (primary) hypertension | CPT/HCPCS: 93005; 99212 ==

== ENCOUNTER 2025-01-14 08:51 | Outpatient (AMB) | payer OTHER, SELFPAY ==
--- OUTSIDE RECORDS SUMMARY | 2025-01-14 09:04 | XMS_ITS ---
Continuity of Care Document (CCD) Created on: January 14, 2025 Mariann Valderrama External Reference #: [id number] : [id number] Sex: Female Author Organization [facility] [address] [place] [address] Phone [phone] Care Team Providers Care Trichologist Name Role Phone Curry Jewell CNP Care Team Information Receive r [phone] Problems Active Problems Provider Date Hyperlipidemia Lb [...] Indications Ordering Provider Date Vitamin D3 Adult Pyketik93hme (1000 Ut) Chewtabs 1 by mouth every day Lb Diaz M.D. 08/23/2024 Atorvastatin Hhgzxkv13ea Tablets Take 1 Tablet By Mouth Daily Curry Jewell CNP Gxeufftztm92.5mg Tablets Take 1 Tablet By Mouth Twice Daily Curry Jewell CNP Ikrjapexyf41gl Tablets Take 1 Tablet By Mouth Daily Curry Jewell CNP Pmhpggugoc46el Tablets Take 1 Tablet By Mouth Daily Curry Jewell CNP Aspirin Low Vhmb38jc Tablets DR Take 1 Tablet By Mouth [...] Vitamin D 28.9 NG/ML (20-50) Phosphorus 05/20/2023 [facility] Phosphorus 3.7 mg/dL (2.5-4.5) PTH, Intact 05/20/2023 [facility] PTH, Intact 31 pg/mL (15-65) 1 Vitamin D deficiency has been defined by the [place] of Medicine and an Endocrine Society practice guideline as a level of serum 25-OH vitamin D less than 20 ng/mL (1,2). The Endocrine Society went on to further define vitamin D insufficiency as a level between 21 and 29 ng/mL (2). 1. IOM ([place] of [employer]). 2010. Dietary reference intakes [...]
[2025-01-14 09:13] VITALS: BP 126/84; PULSE 85; O2SAT 96; BMI 32.0
--- NOTE | 2025-01-14 09:13 | MHC.OFFVIS ---
Vital Signs 01/14/25 09:13 Height 5 ft 7 in Weight 204 lb 2 oz BMI 32.0 BP 126/84 Blood Pressure Location Lt brachial Position Sitting Pulse 85 Pulse Source Pulse Oximeter Pulse Oximetry (%) 96 Oxygen Delivery Method Room Air Intake Visit Reasons: INP-Sleep disorder Intake Note: Patient presents HAND BENDER Sleep disorder. difficulty staying asleep She snores heavily per her son and never had a sleep study done. Goes to bed 11pm get up around 9am. Takes naps st times around 30-45min. Senior Administrator Support Required: Yes Senior Administrator Support Language: Mortgage Loan Coordinator Services: Senior Administrator Support Offered & Declined Senior Administrator Support Name: son Information Interpreted: non-clinical & clinical Accompanied by: Son Allergies No Known Allergies Allergy (Verified 01/20/25 14:09) HPI Comments Details: 74 year old French speaking female presents for a sleep evaluation, referred to us by her pcp, Dr. Lang. She is here with her son who helps with history. She snores loudly goes to bed at 11pm and wakes up at 9am, with 3 bathroom breaks. She c/o morning headaches 2-3 x a week due to lack of sleep. She wakes up at night and uses her phone for social media and game. Mood is relaxed, diet is regulated, she started metformin 3months ago and watches her caloric intake, the night dose gives her acid reflux. BM is regular. She stays hydrated. Memory is stable, will forget at times. Does not drive. She lives alone, and is independent with all ADLS, her kitchen stewardess comes in daily for 2 hours and helps with cleaning. She walks with a cane, and uses her walker as much as possible, though it can be difficult to transport the walker. She denies morning headaches. Denies grinding her teeth at night. RLS, denies pins needles, radiating pain. She has chronic lower back, locally and she takes 500mg po tylenol BID which improves her symptoms. She feels off balance and leans to the sides as she walks. [facility] Medical History Atherosclerotic cardiovascular disease High cholesterol HTN (hypertension) Surgical History Hx of tubal ligation Family History Brother HTN (hypertension) History of open heart surgery Father HTN (hypertension) Mother HTN (hypertension) Sister HTN (hypertension) Social History Household Members: None Household Members Other:: son Both parents involved: No Caregiver staying overnight: No Housing: House Are you a primary post anesthesia care unit nurse to a significant other at home: No Do you presently have visiting nurse or other home services: No 75 years or older and lives alone: No Alcohol intake: never Patient Tobacco Use Status: Never used Tobacco e-Cigarette/Vaping Use: Never Used Second Hand Smoke Exposure: No service: No Current occupational status: retired Cognitive needs: No Hearing needs: No Vision needs: No Physical Exam Vital Signs: Last Vital Signs Pulse 85 01/14/25 09:13 BP 126/84 01/14/25 09:13 Pulse Ox 96 01/14/25 09:13 Oxygen Delivery Method Room Air 01/14/25 09:13 BMI result Body Mass Index 32.0 Const General: cooperative, comfortable and no acute distress Nutritional Appearance: overweight Orientation/consciousness: patient oriented x3 Limitations: language barrier HEENT Face and sinus: Yes face symmetric Eyes Pupils: Equal, round and reactive pupils present Neck Neck: Yes full ROM Resp Effort & Inspection: normal respiratory effort and able to speak in complete sentences Neuro Other: gait tendelenburg - leans to the left and right, hunched over General: patient oriented x3 and moves all extremities Cranial nerves: Yes Equal, round and reactive pupils present, Yes Normal accommodation reflex present, Yes Normal facial strength present, Yes Midline tongue present, Yes Ability to bilaterally rotate head present and Yes Ability to bilaterally elevate shoulders present Cognition (Neuro): normal cognition Gait exam (Neuro): Normal gait present Motor exam (neuro): 5/5 motor strength present throughout and Normal motor muscle tone present throughout Deep tendon reflexes (DTR's): Right triceps reflex intensity grade: 2+, Left triceps reflex intensity grade: 2+, Rt Biceps (C5, C6): 2+, Left biceps reflex intensity grade: 2+, Right brachioradialis reflex intensity grade: 2+, Left brachioradialis reflex intensity grade: 2+, Right patellar reflex intensity grade: 2+ and Left patellar reflex intensity grade: 2+ Coordination: bnnepy-yx-tngn test normal (slow) Psych Appearance: grossly normal Mental Status: mental status grossly normal Thought process: Normal thought process present Thought content: Normal thought content present Results Reviewed Results Reviewed: labs reviewed with patient Assessment & Plan Assessment & Plan (1) Excessive daytime sleepiness: Code(s): G47.19 - Other hypersomnia Category: Medical (2) Pain of left heel: Code(s): M79.672 - Pain in left foot Category: Medical (3) Chronic lower back pain: Code(s): M54.50 - Low back pain, unspecified; G89.29 - Other chronic pain Category: Medical Qualifiers: Back pain laterality: midline Sciatica laterality: sciatica laterality unspecified Sciatica presence: with sciatica Qualified Code(s): M54.40 - Lumbago with sciatica, unspecified side; G89.29 - Other chronic pain (4) Loud snoring: Code(s): R06.83 - Snoring Category: Medical Plan HST r/o sudeep for Excessive daytime fatigue / snoring xray Low back pain Labs to r/o deficiencies Patient education provided re: compression stockings use daily for 2 hours when feet are edematous, pitting. Elevate for 2 hours minimum. F/U in 3 months Orders: Orders XR lumbar spine 2-3V 01/14/25 M54.9 - Dorsalgia, unspecified Vitamin B12 and Folate 01/14/25 G47.19 - Other hypersomnia Vitamin B6 01/14/25 G47.19 - Other hypersomnia Vitamin B1 01/14/25 G47.19 - Other hypersomnia IRON PROFILE 01/14/25 R53.83 - Other fatigue, G47.9 - Sleep disorder, unspecified, G47.19 - Other hypersomnia RT home sleep study 01/14/25 G47.19 - Other hypersomnia Ferritin 01/14/25 G47.19 - Other hypersomnia Methylmalonic Acid 01/14/25 R53.83 - Other fatigue, G47.9 - Sleep disorder, unspecified, G47.19 - Other hypersomnia Homocysteine 01/14/25 R53.83 - Other fatigue, G47.9 - Sleep disorder, unspecified, G47.19 - Other hypersomnia Patient Instructions: Sleep Hygiene provided: set a scheduled bedtime and wake time to help regulate the circadian rhythm and balance the release of pituitary hormones. Sleep in a dark room, temperatures below 68 degrees, and no devices n bed. Limit caffeinated products 6 hours prior to bed, and limit fluids 2-4 hours prior to bed. Gentle night yoga, diffusing essential oils, and playing soft music can be relaxing. Coding Level of Care Code New Pt Level 4 (77108) Diagnoses Excessive daytime sleepiness G47.19 Pain of left heel M79.672 Chronic midline low back pain with sciatica, sciatica laterality unspecified M54.40; G89.29 Back pain laterality: midline Sciatica laterality: sciatica laterality unspecified Sciatica presence: with sciatica Loud snoring R06.83 Sleep Questionnaire Difficulty falling asleep: Yes Difficulty staying asleep?: Yes Number of arousals: 3-4 Snoring: Yes Witnessed apneas: No Gasping arousals: No Nocturia: Yes GERD: Yes Vivid dreams: No Acting out dreams: No Abnormal behavior in sleep: No Abnormal movements in sleep: No Morning headaches: Yes Excessive daytime sleepiness: No Daytime naps: Yes Restless legs: Yes Hallucinations: No Sleep paralysis: No Drop attacks: No Sleep Study: No CPAP: No
== END 2025-01-14 10:03 | disposition home or self-care (01) ==
LOC: HO.HSMS 08:52
PROVIDERS: PCP Nurse Practitioner Family; Visit Provider Physician Assistant Medical
DX: G47.19 Other hypersomnia (principal); M79.672 Pain in left foot; M54.40 Lumbago with sciatica, unspecified side; G89.29 Other chronic pain; R06.83 Snoring
CPT/HCPCS: 99204

== ENCOUNTER → 2025-01-14 08:51 | Outpatient (BNVA) | payer OTHER, SELFPAY | PROVIDERS: PCP Nurse Practitioner Family; Visit Provider Physician Assistant Medical | DX: R06.83 Snoring (principal); G47.19 Other hypersomnia; M54.40 Lumbago with sciatica, unspecified side; G89.29 Other chronic pain; M79.672 Pain in left foot | CPT/HCPCS: 99202 ==

== ENCOUNTER 2025-01-20 14:03 | Outpatient (AMB) | payer MEDICARE, SELFPAY ==
--- NOTE | 2025-01-20 14:05 | MHC.OFFVIS ---
Vital Signs 01/20/25 14:06 Height 5 ft 7 in Weight 204 lb BMI 31.9 Intake Visit Reasons: Dexa results Assistant Manager Retail Required: Yes Assistant Manager Retail Language: School Psychological Examiner Services: Assistant Manager Retail Present (in person) Assistant Manager Retail Name: Stefania MCRAE Information Interpreted: non-clinical & clinical Accompanied by: Self / Same As Patient Allergies No Known Allergies Allergy (Verified 01/20/25 14:09) HPI Comments Details: Presenting for DEXA scan follow-up. DEXA scan showed the following: The bone mineral density of the lumbar spine is 1.308 g/cm2, corresponding to a T-score of 1.1, and a Z-score of 1.8. This is indicative of normal bone mineral density. This represents a BMD change of 4.8% compared to the prior exam. This is statistically significant. The bone mineral density of the left total hip is 0.929 g/cm2, corresponding to a T-score of -0.6, and a Z-score of 0.2. This is indicative of normal bone mineral density. This represents a BMD change of 1.9% compared to the prior exam. This is not statistically significant. The bone mineral density of the left femoral neck is 0.808 g/cm2, corresponding to a T-score of -1.7, and a Z-score of -0.5. This is indicative of osteopenia. This represents a BMD change of 5.5% compared to the prior exam. FRACTURE RISK: The FRAX index suggests a ten year probability of major osteoporotic fracture of 5.9%, and of hip fracture 1.0% PFSH Medical History Atherosclerotic cardiovascular disease High cholesterol HTN (hypertension) Surgical History Hx of tubal ligation Family History Brother HTN (hypertension) History of open heart surgery Father HTN (hypertension) Mother HTN (hypertension) Sister HTN (hypertension) Social History Household Members: None Household Members Other:: son Both parents involved: No Caregiver staying overnight: No Housing: House Are you a primary rn transitional care to a significant other at home: No Do you presently have visiting nurse or other home services: No 75 years or older and lives alone: No Alcohol intake: never Patient Tobacco Use Status: Never used Tobacco e-Cigarette/Vaping Use: Never Used Second Hand Smoke Exposure: No service: No Current occupational status: retired Cognitive needs: No Hearing needs: No Vision needs: No Review of Systems Const All systems reviewed & are unremarkable except as noted in HPI and below Reports as per HPI and Reports no additional complaints GI Reports no additional complaints Reports no additional complaints Physical Exam Vital Signs: BMI result Body Mass Index 31.9 Assessment & Plan Assessment & Plan (1) Osteopenia: Code(s): M85.80 - Other specified disorders of bone density and structure, unspecified site Category: Medical Plan: Discussed with the patient the DEXA results and FRAX risk. FRAX risk and T score showed no evidence of osteoporosis. Discussed with the patient all the options for osteoporosis prevention including lifestyle modifications including Ca+D supplements 1200 mg po qd/800 MIU, Weight bearing exercises and proteine supplements. The patient verbalized understanding and agreed plan will repeat DEXA in 2 years. Coding Level of Care Code Est Pt Level 3 (03867) Diagnoses Osteopenia M85.80
[2025-01-20 14:06] VITALS: BMI 31.9
--- OUTSIDE RECORDS SUMMARY | 2025-01-20 14:51 | XMS_ITS | Continuity of Care Document ---
Author Organization [facility] [address] [place] [address] Phone [phone] Care Team Providers Care Video Network Engineer Name Role Phone Curry Jewell CNP Care Team Information Receive r [phone] Problems Active Problems Provider Date Hyperlipidemia Lb [...] Indications Ordering Provider Date Vitamin D3 Adult Vnusqgb61qhy (1000 Ut) Chewtabs 1 by mouth every day Lb Diaz M.D. 08/23/2024 Atorvastatin Adtumxy77ke Tablets Take 1 Tablet By Mouth Daily Curry Jewell CNP Ustmftizqs85.5mg Tablets Take 1 Tablet By Mouth Twice Daily Curry Jewell CNP Oxzdiqfanr63cf Tablets Take 1 Tablet By Mouth Daily Curry Jewell CNP Sjocjkghra53cy Tablets Take 1 Tablet By Mouth Daily Curry Jewell CNP Aspirin Low Uxxu65zg Tablets DR Take 1 Tablet By Mouth [...] Vitamin D 28.9 NG/ML (20-50) Phosphorus 05/20/2023 [facility] Phosphorus 3.7 mg/dL (2.5-4.5) PTH, Intact 05/20/2023 [facility] PTH, Intact 31 pg/mL (15-65) 1 Vitamin D deficiency has been defined by the [place] of Medicine and an Endocrine Society practice guideline as a level of serum 25-OH vitamin D less than 20 ng/mL (1,2). The Endocrine Society went on to further define vitamin D insufficiency as a level between 21 and 29 ng/mL (2). 1. IOM ([place] of [employer]). 2010. Dietary reference intakes for [...]
== END 2025-01-20 14:24 | disposition home or self-care (01) ==
LOC: HO.HWS 14:04
PROVIDERS: PCP Nurse Practitioner Family; Visit Provider Obstetrics & Gynecology
DX: M85.80 Other specified disorders of bone density and structure, unspecified site (principal)
CPT/HCPCS: 99213

== ENCOUNTER → 2025-01-20 14:03 | Outpatient (BNVA) | payer OTHER, SELFPAY | PROVIDERS: PCP Nurse Practitioner Family; Visit Provider Obstetrics & Gynecology | DX: Z71.2 Person consulting for explanation of examination or test findings (principal); M85.80 Other specified disorders of bone density and structure, unspecified site | CPT/HCPCS: 99212 ==

== ENCOUNTER 2025-02-05 10:08 | Outpatient (REF) | payer OTHER, SELFPAY ==
--- NOTE | ~2025-02-05 | XR_ITS ---
EXAMINATION: XR LUMBAR SPINE 2-3 VIEWS HISTORY: M54.9 - Dorsalgia, unspecified COMPARISON: There are no prior studies for comparison. FINDINGS: AP, lateral, and coned down views of the lumbar spine are submitted. Osseous mineralization is normal. Five nonrib-bearing lumbar vertebral bodies are identified, maintaining normal height without evidence of fracture. There is minimal anterolisthesis of L4 on L5. There is mild degenerative disc disease with disc space narrowing and osteophyte formation, most prominent at the L1-2 level. There is osteoarthritis at the facet joints. There is calcification of the abdominal aorta. XR/XR lumbar spine 2-3V IMPRESSION: Mild degenerative disc disease. Minimal anterolisthesis of L4 on L5. Electronically signed by: Michele Drummond MD 02/07/2025 07:03 AM EDT
--- OUTSIDE RECORDS SUMMARY | 2025-02-05 10:11 | XMS_ITS | Continuity of Care Document ---
Author Organization [facility] [address] [place] [address] Phone [phone] Care Team Providers Care Parquetry Floor Layer Name Role Phone Curry Jewell CNP Care Team Information Receive r [phone] Problems Active Problems Provider Date Hyperlipidemia Lb [...] Indications Ordering Provider Date Vitamin D3 Adult Qeueizt10oos (1000 Ut) Chewtabs 1 by mouth every day Lb Diaz M.D. 08/23/2024 Atorvastatin Zvykhyl01nu Tablets Take 1 Tablet By Mouth Daily Curry Jewell CNP Omomhghoqt97.5mg Tablets Take 1 Tablet By Mouth Twice Daily Curry Jewell CNP Kehrsrbmtw44ny Tablets Take 1 Tablet By Mouth Daily Curry Jewell CNP Zagqgdorow21zc Tablets Take 1 Tablet By Mouth Daily Curry Jewell CNP Aspirin Low Lcly17mt Tablets DR Take 1 Tablet By Mouth [...] Vitamin D 28.9 NG/ML (20-50) Phosphorus 05/20/2023 [facility] Phosphorus 3.7 mg/dL (2.5-4.5) PTH, Intact 05/20/2023 [facility] PTH, Intact 31 pg/mL (15-65) 1 Vitamin D deficiency has been defined by the [place] of Medicine and an Endocrine Society practice guideline as a level of serum 25-OH vitamin D less than 20 ng/mL (1,2). The Endocrine Society went on to further define vitamin D insufficiency as a level between 21 and 29 ng/mL (2). 1. IOM ([place] of Medicine). 2010. Dietary reference intakes for [...]
[2025-02-05 11:22] LABS: Iron 89 mcg/dL (30-160); Percent Iron Saturation 33 % (15-50); Total Iron Binding Capacity 269 mcg/dL (228-428); Unsaturated Iron Binding 180 ug/dL
[2025-02-05 11:36] LABS: Ferritin 252 ng/mL (10-250)
[2025-02-05 11:50] LABS: Folate 11.3 ng/mL (> or = 4.0); Vitamin B12 486 pg/mL (200-900)
== END 2025-02-05 10:09 | disposition home or self-care (01) ==
LOC: HO.HMGCX 10:08
PROVIDERS: PCP Nurse Practitioner Family; Visit Provider Physician Assistant Medical
DX: G47.19 Other hypersomnia (principal); M54.9 Dorsalgia, unspecified; R53.83 Other fatigue; Z13.6 Encounter for screening for cardiovascular disorders; Z13.0 Encounter for screening for diseases of the blood and blood-forming organs and certain disorders involving the immune mechanism
CPT/HCPCS: 36415; 72100; 82607; 82728; 82746; 83090; 83540; 83921; 84207; 84425

== ENCOUNTER → 2025-02-05 10:11 | Outpatient (BNV) | payer MEDICARE, SELFPAY | PROVIDERS: PCP Nurse Practitioner Family; Visit Provider Radiology Diagnostic Radiology | DX: M54.50 Low back pain, unspecified (principal) | CPT/HCPCS: 72100 ==

== ENCOUNTER 2025-03-19 09:57 | Outpatient (REF) | payer OTHER, SELFPAY ==
--- OUTSIDE RECORDS SUMMARY | 2025-03-19 10:00 | XMS_ITS ---
Continuity of Care Document (CCD) Created on: March 19, 2025 Mariann Valderrama External Reference #: [id number] Sex: Female Author Organization [facility] [address] [place] [address] Phone [phone] Care Team Providers Care Friend Of The Court Name Role Phone Curry Jewell CNP Care Team Information Receive r [phone] Problems Active Problems Provider Date Hyperlipidemia Lb [...] Indications Ordering Provider Date Vitamin D3 Adult Ujxjdaw43frj (1000 Ut) Chewtabs 1 by mouth every day Lb Diaz M.D. 08/23/2024 Atorvastatin Hrcqclc83pz Tablets Take 1 Tablet By Mouth Daily Curry Jewell CNP Timrctprgh91.5mg Tablets Take 1 Tablet By Mouth Twice Daily Curry Jewell CNP Qkrlrgxcdc14un Tablets Take 1 Tablet By Mouth Daily Curry Jewell CNP Sdrpnaoyve54ag Tablets Take 1 Tablet By Mouth Daily Curry Jewell CNP Aspirin Low Fehb25tj Tablets DR Take 1 Tablet By Mouth [...] Vitamin D 28.9 NG/ML (20-50) Phosphorus 05/20/2023 [facility] Phosphorus 3.7 mg/dL (2.5-4.5) PTH, Intact 05/20/2023 [facility] PTH, Intact 31 pg/mL (15-65) 1 Vitamin D deficiency has been defined by the [place] [employer] and an Endocrine Society practice guideline as a level of serum 25-OH vitamin D less than 20 ng/mL (1,2). The Endocrine Society went on to further define vitamin D insufficiency as a level between 21 and 29 ng/mL (2). 1. IOM ([place] of [employer]). 2010. Dietary reference intakes for [...]
[2025-03-19 14:04] LABS: Appearance Urine Clear; Glucose Urine UA Negative (Negative); PH 6.0 (5.0-9.0); Specific Gravity - Urine 1.025 (1.005-1.025); UMIC TRIGGER UACC YES
== END 2025-03-19 09:58 | disposition home or self-care (01) ==
LOC: HO.HMGCLDS 09:57
PROVIDERS: PCP Nurse Practitioner Family; Visit Provider Nurse Practitioner Family
DX: Z00.00 Encounter for general adult medical examination without abnormal findings (principal)
CPT/HCPCS: 81001; 81003

== ENCOUNTER → 2025-03-30 12:41 | Outpatient (REF) | payer MEDICARE, SELFPAY ==
--- OUTSIDE RECORDS SUMMARY | 2025-03-30 15:16 | XMS_ITS | Continuity of Care Document ---
Author Organization [facility] [address] [place] [address] Phone [phone] Care Team Providers Care Crusher Operator Name Role Phone Curry Jewell CNP Care Team Information Receive r [phone] Problems Active Problems Provider Date Hyperlipidemia Lb [...] Indications Ordering Provider Date Vitamin D3 Adult Cytbsby02eik (1000 Ut) Chewtabs 1 by mouth every day Lb Diaz M.D. 08/23/2024 Atorvastatin Twaidon84is Tablets Take 1 Tablet By Mouth Daily Curry Jewell CNP Kgtkamhmdb22.5mg Tablets Take 1 Tablet By Mouth Twice Daily Curry Jewell CNP Alemamywmi64gv Tablets Take 1 Tablet By Mouth Daily Curry Jewell CNP Adrvqnersl56cv Tablets Take 1 Tablet By Mouth Daily Curry Jewell CNP Aspirin Low Uhcd70jb Tablets DR Take 1 Tablet By Mouth [...] Vitamin D 28.9 NG/ML (20-50) Phosphorus 05/20/2023 [facility] Phosphorus 3.7 mg/dL (2.5-4.5) PTH, Intact 05/20/2023 [facility] PTH, Intact 31 pg/mL (15-65) 1 Vitamin D deficiency has been defined by the [place] [employer] and an Endocrine Society practice guideline as a level of serum 25-OH vitamin D less than 20 ng/mL (1,2). The Endocrine Society went on to further define vitamin D insufficiency as a level between 21 and 29 ng/mL (2). 1. IOM ([place] [employer]). 2010. Dietary reference intakes for [...]
== END ==
LOC: HO.SL 12:41
PROVIDERS: PCP Nurse Practitioner Family; Visit Provider Physician Assistant Medical
DX: G47.33 Obstructive sleep apnea (adult) (pediatric) (principal); G47.19 Other hypersomnia; R06.83 Snoring; R40.0 Somnolence
CPT/HCPCS: 95806

== ENCOUNTER → 2025-03-30 12:52 | Outpatient (BNV) | payer MEDICARE, SELFPAY | PROVIDERS: PCP Nurse Practitioner Family; Visit Provider Psychiatry & Neurology Neurology | DX: G47.33 Obstructive sleep apnea (adult) (pediatric) (principal) | CPT/HCPCS: 95806 ==

== ENCOUNTER 2025-04-08 09:43 | Outpatient (AMB) | payer OTHER, SELFPAY ==
--- NOTE | 2025-04-08 09:53 | MHC.PC.OV ---
Vital Signs 04/08/25 10:00 Height 5 ft 7 in Weight 200 lb BMI 31.3 BP 121/58 L Blood Pressure Location Rt brachial Position Sitting Respiration 16 Pulse 65 Pulse Source Pulse Oximeter Temp 98.2 F Temp Source Oral Pulse Oximetry (%) 98 Oxygen Delivery Method Room Air Intake Visit Reasons: 3 mos HTN, DM Intake Note: patient here for 3 month follow on HTN and DM Looping Machine Operator Required: Yes Looping Machine Operator Language: Blood Collector Name: refused w/ son Information Interpreted: non-clinical & clinical Accompanied by: Son Is last menstrual period known: No Post menopausal: No Patient : No Allergies No Known Allergies Allergy (Verified 04/08/25 10:34) Medication List - Last Reconciled 04/08/25 by Fanta Zapien CNP acetaminophen (Tylenol) 650 mg (2 x 325 mg) PO Q6H PRN aspirin 81 mg PO DAILY atorvastatin 80 mg PO DAILY 90 days blood sugar diagnostic (FreeStyle Lite Strips) Blood glucose testing three times daily blood-glucose meter (FreeStyle Lite Meter kit) Blood glucose testing three times daily carvedilol 25 mg (2 x 12.5 mg) PO BID 90 days cholecalciferol (vitamin D3) 25 mcg PO DAILY 90 days furosemide 20 mg PO DAILY 90 days isosorbide mononitrate ER 15 mg (1/2 x 30 mg) PO DAILY 90 days lancets (FreeStyle Lancets) Glucose testing three times daily lisinopril 40 mg PO DAILY 90 days metformin 500 mg PO BIDWMEAL 30 days miscellaneous medical supply One large blood pressure cuff/monitor Tobacco use date assessed: 04/08/25 Fall risk assessment: No Falls in past year Last assessed Fall Risk: 04/08/25 Dental Screening Dental Screen Date: 04/08/25 Did you have a dental visit in the last 12 months?: Yes Did you have a dental problem in the last 6 months where you did not have access to dental care?: No Was dental information given to patient?: Patient has dentist HPI HPI Comments History of Present Illness Details 74-year-old Serbian-speaking female, accompanied by her son, presents for hypertension and diabetes follow-up. She admits to taking her medications as prescribed without adverse reactions. She has been out of isosorbide and requests a refill. She notes that she has been making healthy lifestyle changes. She requests the flu vaccine. No acute symptoms at this time. Interpretation by the patient's son per patient's preference. [facility] Medical History Atherosclerotic cardiovascular disease High cholesterol HTN (hypertension) Surgical History Hx of tubal ligation Family History Brother HTN (hypertension) History of open heart surgery Father HTN (hypertension) Mother HTN (hypertension) Sister HTN (hypertension) Social History Household Members: None Household Members Other:: son Both parents involved: No Caregiver staying overnight: No Housing: House Are you a primary residential care facility manager to a significant other at home: No Do you presently have visiting nurse or other home services: No 75 years or older and lives alone: No Alcohol intake: never Patient Tobacco Use Status: Never used Tobacco e-Cigarette/Vaping Use: Never Used Second Hand Smoke Exposure: No service: No Current occupational status: retired Current occupational exposures/hazards: No Cognitive needs: No Hearing needs: No Vision needs: No Questionnaire Thrive Questionnaire Date Thrive assessed: 05/28/24 I am a: Patient What is your living situation today?: I have a steady place to live Within the past 12 months, did the food you bought not last and you didn't have the money to get more?: I choose not to answer this question Within the past 12 months, did you worry whether your food would run out before you got money to buy more?: I choose not to answer this question Do you have trouble paying for medicines?: No Do you have trouble getting transportation to medical appointments?: No Do you have trouble paying your heating and electricity bill?: No Do you have trouble taking care of your child, family member or friend?: Yes Do you have trouble with day-to-day activities such as bathing, preparing meals, shopping, managing finances, etc.?: No Are you currently unemployed and looking for a job?: No Are you interested in more education?: I choose not to answer this question Please select the resources that you would like help with: None Currently or been in a relationship where the following occur: I choose not to answer THRIVE Score: 0 ANKIT-7 AMB Questionnaire ANKIT-7 Date ANKIT - 7 assessed: 01/04/25 Source: Developed by Drs. Michele Weaver, Suly Sheets, Greg Gibbons and colleagues, with an educational jemima from [employer]. Review of Systems Const Details: Const Denies chills, Denies fatigue, Denies fever(s), Denies headache(s) and Denies weakness ENT Denies dizziness and Denies headache(s) Card Denies chest pain, Denies lightheadedness, Denies dyspnea and Denies other (Palpitations) Resp Denies cough, Denies dyspnea, Denies wheezing and Denies other ( shortness of breath) GI Denies abdominal pain, Denies melena, Denies hematochezia, Denies change in bowel habits, Denies dyspepsia and Denies nausea Denies hematuria and Denies dysuria Musc Denies abnormal gait, Denies myalgias, Denies arthralgias, Denies numbness and Denies tingling Skin/Breast Denies rash, Denies unusual bruising and Denies wounds Neuro Denies abnormal gait, Denies dizziness, Denies headache(s), Denies memory loss, Denies numbness, Denies Sensory deficit (Neuro), Denies tingling and Denies weakness Psych Denies anxiety, Denies depression, Denies memory loss Endo Denies cold intolerance, Denies fatigue, Denies heat intolerance, Denies polydipsia and Denies polyuria Aller/Immun Denies wheezing Physical exam (Primary Care) Vital Signs: Last Vital Signs Temp 98.2 F 04/08/25 10:00 Pulse 65 04/08/25 10:00 Resp 16 04/08/25 10:00 BP 121/58 L 04/08/25 10:00 Pulse Ox 98 04/08/25 10:00 Oxygen Delivery Method Room Air 04/08/25 10:00 BMI result Body Mass Index 31.3 Tobacco/Smoking Status: Tobacco use Status Tobacco use date assessed 04/08/25 04/08/25 10:07 Patient Tobacco Use Status Never used Tobacco 04/08/25 09:56 Tobacco use type 12/10/22 15:03 e-Cigarette/Vaping Use Never Used 04/08/25 09:56 Thrive Assessment: Date of Thrive Assessment Date Thrive assessed 05/28/24 04/08/25 09:56 Currently or been in a relationship where the following occur: I choose not to answer Const Other: General: no acute distress and well developed Nutritional Appearance: well nourished Orientation/consciousness: patient oriented x3 [facility] Head: Yes normocephalic and Yes atraumatic Eyes General: appearance normal, both eyes and all related structures Pupils: Equal, round and reactive pupils present EOM: EOMs intact bilaterally Resp Effort & Inspection: normal respiratory effort Auscultation: clear to auscultation bilaterally Cardio Rate: regular rate Rhythm: regular rhythm Heart sounds: S1 normal heart sound present, S2 normal heart sound present, no gallops, no murmurs and no rubs Extrem General: Yes normal to inspection, No edema and No calf tenderness Skin General: warm and dry. Normal skin color. Normal skin turgor Neuro General: patient oriented x3, gait normal and no focal neuro deficit Cranial nerves: Yes Equal, round and reactive pupils present Cognition (Neuro): normal cognition Gait exam (Neuro): Normal gait present Sensory Exam: No Sensory deficit (Neuro) Psych Appearance: grossly normal Affect: normal affect Attitude: cooperative Thought process: Normal thought process present Office Procedures Flu Questionnaire Does the patient have a severe egg allergy?: No Does the patient have severe life threatening allergies?: No Does the patient have a fever or illness today?: No Has the patient ever had Guillain-Annandale Syndrome?: No Has the patient ever had any past reaction to a flu shot?: No Results AMB Hemoglobin A1c AMB Hemoglobin A1c 5.5 % Last Edit by CLEMENTINA Walker on 04/08/25 10:16 Immunizations Fluarix [id number] (PF) 45 mcg (15 mcg x 3)/0.5 mL IM syringe Performing Provider: Fanta Zapien CNP Performing Location: [facility] Administered by: Maxine Banegas RN on 04/08/25 10:52 Dose Route Admin Location Dispensed Lot Number Expiration Date NDC Molding Machine Tender 0.5 mL IM Left Deltoid 0.5 mL [id number] 11/22/25 [id number] [place] VIS Given Date VIS Provided VIS Publication Date 04/08/25 Single Vaccine 24 Eligibility Eligibility Date Funding Source Not [facility] Eligible 04/08/25 Private Results Reviewed Results Reviewed: Laboratory Last Values Hgb A1c (Clinic) 5.5 % (4.0-6.0) 04/08/25 10:15 Coding Level of Care Code Est Pt Level 3 (59775) Diagnoses Hypertension, unspecified type I10 Hypertension type: unspecified Type 2 diabetes mellitus E11.9 Assessment & Plan Assessment & Plan (1) HTN (hypertension): Code(s): I10 - Essential (primary) hypertension Category: Medical Qualifiers: Hypertension type: unspecified Qualified Code(s): I10 - Essential (primary) hypertension Plan: Blood pressure is 121/58, within goal of less than 130/80. Continue current treatment regimen. Low-sodium diet encouraged. Follow-up for transfer of care with a new PCP in 3 months. Return sooner with symptoms or concerns. Verbalized understanding and agreed with the plan. (2) Type 2 diabetes mellitus: Code(s): E11.9 - Type 2 diabetes mellitus without complications Category: Medical Plan: A1c today is 5.5%, within goal of less than 7.0%. Previous A1c was 5.6%. Continue current treatment regimen. Follow-up in 3 months. Verbalized understanding and agreed with the plan. Orders: Orders AMB Hemoglobin A1c Today Z13.9 - Encounter for screening, unspecified AMB Hemoglobin A1c Today E11.9 - Type 2 diabetes mellitus without complications Influenza [id number] Immunization Today Z23 - Encounter for immunization Medications: Refilled isosorbide mononitrate ER 15 mg (1/2 x 30 mg) PO DAILY 45 tabs 1RF 90 days
[2025-04-08 10:00] VITALS: BP 121/58; PULSE 65; RESP 16; TEMP 36.8; O2SAT 98; BMI 31.3
--- OUTSIDE RECORDS SUMMARY | 2025-04-08 10:56 | XMS_ITS | Continuity of Care Document ---
Author Organization [facility] [address] [place] [address] Phone [phone] Care Team Providers Care Director Of Institutional Giving Name Role Phone Curry Jewell CNP Care Team Information Receive r [phone] Problems Active Problems Provider Date Hyperlipidemia Lb [...] Indications Ordering Provider Date Vitamin D3 Adult Juwgwft01xil (1000 Ut) Chewtabs 1 by mouth every day Lb Diaz M.D. 08/23/2024 Atorvastatin Bkehohx91pu Tablets Take 1 Tablet By Mouth Daily Curry Jewell CNP Ceivzfficg00.5mg Tablets Take 1 Tablet By Mouth Twice Daily Curry Jewell CNP Wgygruepsi93mh Tablets Take 1 Tablet By Mouth Daily Curry Jewell CNP Qtpprxrokv82ul Tablets Take 1 Tablet By Mouth Daily Curry Jewell CNP Aspirin Low Ootw06xl Tablets DR Take 1 Tablet By Mouth [...] Vitamin D 28.9 NG/ML (20-50) Phosphorus 05/20/2023 [facility] Phosphorus 3.7 mg/dL (2.5-4.5) PTH, Intact 05/20/2023 [facility] PTH, Intact 31 pg/mL (15-65) 1 Vitamin D deficiency has been defined by the [place] of [employer] and an Endocrine Society practice guideline as a level of serum 25-OH vitamin D less than 20 ng/mL (1,2). The Endocrine Society went on to further define vitamin D insufficiency as a level between 21 and 29 ng/mL (2). 1. IOM ([place] of [employer]). 2010. Dietary reference intakes for [...]
== END 2025-04-08 10:49 | disposition home or self-care (01) ==
LOC: HO.HMCFM 09:44
PROVIDERS: PCP Nurse Practitioner Family; Visit Provider Nurse Practitioner Family
DX: I10 Essential (primary) hypertension (principal); E11.9 Type 2 diabetes mellitus without complications; Z23 Encounter for immunization

== ENCOUNTER → 2025-04-08 09:43 | Outpatient (BNVA) | payer OTHER, SELFPAY | PROVIDERS: PCP Nurse Practitioner Family; Visit Provider Nurse Practitioner Family | DX: I10 Essential (primary) hypertension (principal); E11.9 Type 2 diabetes mellitus without complications; Z23 Encounter for immunization | CPT/HCPCS: 83036; 90471; 90656; 99212 ==

== ENCOUNTER 2025-04-12 14:45 | Outpatient (AMB) | payer OTHER, SELFPAY ==
[2025-04-12 15:00] VITALS: BP 128/80; PULSE 68; O2SAT 98; BMI 31.8
--- NOTE | 2025-04-12 15:00 | MHC.OFFVIS ---
Vital Signs 04/12/25 15:00 Height 5 ft 7 in Weight 203 lb 6 oz BMI 31.8 BP 128/80 Blood Pressure Location Rt brachial Position Sitting Pulse 68 Pulse Source Pulse Oximeter Pulse Oximetry (%) 98 Oxygen Delivery Method Room Air Intake Visit Reasons: 3 mo follow up (CONF.) Intake Note: Patient presents follow up SARATH. Labs/X-ray/HST done 03/30. Web Assistant Required: Yes Web Assistant Services: Web Assistant Offered & Declined Web Assistant Name: Son Information Interpreted: non-clinical & clinical Accompanied by: Son Allergies No Known Allergies Allergy (Verified 04/12/25 15:11) HPI Comments Details: 74 year old Romansh speaking female presents for a sleep evaluation, referred to us by her pcp, Dr. Lang. She is here with her son who helps with history. Labs / Xray reviewed with pt. HST is pending. She snores loudly, goes to bed at 11pm and wakes up at 9am, with at least 3 bathroom breaks. She c/o morning headaches 2-3 x a week due to lack of sleep. She wakes up at night and uses her phone for social media and game. Mood is relaxed, diet is strict, she started metformin 3 months ago and watches her caloric intake, her dose at night gives her acid reflux. BM is regular. She stays hydrated. Memory is stable, will forget tasks, dates appts. Does not drive. She lives alone, and is independent with all ADLS, public policy associate comes in daily for 2 hours and helps with cleaning, cooking, showering, dressing. She walks with a cane, and uses her walker as much as possible, though it can be difficult to transport the walker. She feels off balance and leans to the sides as she walks. RLS, denies pins needles, radiating pain. Denies grinding her teeth at night and jaw clenching, parasomnias, v/a hallucinations, sleep paralysis. She has chronic lower back, locally and she takes 500mg po tylenol BID which improves her symptoms. [facility] Medical History Atherosclerotic cardiovascular disease High cholesterol HTN (hypertension) Surgical History Hx of tubal ligation Family History Brother HTN (hypertension) History of open heart surgery Father HTN (hypertension) Mother HTN (hypertension) Sister HTN (hypertension) Social History Household Members: None Household Members Other:: son Both parents involved: No Caregiver staying overnight: No Housing: House Are you a primary residential caregiver to a significant other at home: No Do you presently have visiting nurse or other home services: No 75 years or older and lives alone: No Alcohol intake: never Patient Tobacco Use Status: Never used Tobacco e-Cigarette/Vaping Use: Never Used Second Hand Smoke Exposure: No service: No Current occupational status: retired Current occupational exposures/hazards: No Cognitive needs: No Hearing needs: No Vision needs: No Physical Exam Vital Signs: Last Vital Signs Pulse 68 04/12/25 15:00 BP 128/80 04/12/25 15:00 Pulse Ox 98 04/12/25 15:00 Oxygen Delivery Method Room Air 04/12/25 15:00 BMI result Body Mass Index 31.8 Const General: cooperative, comfortable and no acute distress Nutritional Appearance: overweight Orientation/consciousness: patient oriented x3 Limitations: language barrier HEENT Face and sinus: Yes face symmetric Eyes Pupils: Equal, round and reactive pupils present Neck Neck: Yes full ROM Resp Effort & Inspection: normal respiratory effort and able to speak in complete sentences Neuro Other: gait tendelenburg - leans to the left and right, hunched over General: patient oriented x3 and moves all extremities Cranial nerves: Yes Equal, round and reactive pupils present, Yes Normal accommodation reflex present, Yes Normal facial strength present, Yes Midline tongue present, Yes Ability to bilaterally rotate head present and Yes Ability to bilaterally elevate shoulders present Cognition (Neuro): normal cognition Gait exam (Neuro): Normal gait present Motor exam (neuro): 5/5 motor strength present throughout and Normal motor muscle tone present throughout Deep tendon reflexes (DTR's): Right triceps reflex intensity grade: 2+, Left triceps reflex intensity grade: 2+, Rt Biceps (C5, C6): 2+, Left biceps reflex intensity grade: 2+, Right brachioradialis reflex intensity grade: 2+, Left brachioradialis reflex intensity grade: 2+, Right patellar reflex intensity grade: 2+ and Left patellar reflex intensity grade: 2+ Coordination: gfxpej-pk-gykn test normal (slow) Psych Appearance: grossly normal Mental Status: mental status grossly normal Thought process: Normal thought process present Thought content: Normal thought content present Results Reviewed Results Reviewed: Reviewed Xray 01/2025 for lower back pain anterolisthesis of l4/l5. Assessment & Plan Assessment & Plan (1) Chronic lower back pain: Code(s): M54.50 - Low back pain, unspecified; G89.29 - Other chronic pain Category: Medical Qualifiers: Back pain laterality: midline Sciatica presence: with sciatica Sciatica laterality: sciatica laterality unspecified Qualified Code(s): M54.40 - Lumbago with sciatica, unspecified side; G89.29 - Other chronic pain (2) Excessive daytime sleepiness: Code(s): G47.19 - Other hypersomnia Category: Medical (3) Pain of left heel: Code(s): M79.672 - Pain in left foot Category: Medical (4) Loud snoring: Code(s): R06.83 - Snoring Category: Medical Plan HST r/o sarath due to Excessive daytime fatigue / snoring. HST results are pending. xray Low back pain, reviewed with pt. L4/L5 anterolisthesis, recommend PT for degenerative changes. Labs reviewed with pt. Patient education provided re: compression stockings use daily for 2 hours when feet are edematous, pitting. Elevate for 2 hours minimum. F/U in 3 months Patient Instructions: Sleep Hygiene provided: set a scheduled bedtime and wake time to help regulate the circadian rhythm and balance the release of pituitary hormones. Sleep in a dark room, temperatures below 68 degrees, and no devices n bed. Limit caffeinated products 6 hours prior to bed, and limit fluids 2-4 hours prior to bed. Gentle night yoga, diffusing essential oils, and playing soft music can be relaxing. Will call pt when she returns from trip to [place] in May for her cpap machine. Coding Level of Care Code Est Pt Level 4 (93090) Diagnoses Chronic midline low back pain with sciatica, sciatica laterality unspecified M54.40; G89.29 Back pain laterality: midline Sciatica presence: with sciatica Sciatica laterality: sciatica laterality unspecified Excessive daytime sleepiness G47.19 Pain of left heel M79.672 Loud snoring R06.83
== END 2025-04-12 15:37 | disposition home or self-care (01) ==
LOC: HO.HSMS 14:46
PROVIDERS: PCP Nurse Practitioner Family; Visit Provider Physician Assistant Medical
DX: M54.40 Lumbago with sciatica, unspecified side (principal); G89.29 Other chronic pain; G47.19 Other hypersomnia; M79.672 Pain in left foot; R06.83 Snoring
CPT/HCPCS: 99214

== ENCOUNTER → 2025-04-12 14:45 | Outpatient (BNVA) | payer OTHER, SELFPAY | PROVIDERS: PCP Nurse Practitioner Family; Visit Provider Physician Assistant Medical | DX: M54.50 Low back pain, unspecified (principal); G89.29 Other chronic pain; G47.19 Other hypersomnia; M79.672 Pain in left foot; R06.83 Snoring | CPT/HCPCS: 99212 ==

== ENCOUNTER 2025-04-29 14:17 | Outpatient (REF) | payer OTHER, SELFPAY ==
[2025-04-29 17:31] LABS: Lipase 27 U/L (8-78)
== END 2025-04-29 14:18 | disposition home or self-care (01) ==
LOC: HO.LAB 14:17
PROVIDERS: PCP Nurse Practitioner Family; Visit Provider Nurse Practitioner Family
DX: R10.13 Epigastric pain (principal); R14.0 Abdominal distension (gaseous); Z12.11 Encounter for screening for malignant neoplasm of colon
CPT/HCPCS: 36415; 83690; 86364; 99202

== ENCOUNTER 2025-04-29 14:17 | Outpatient (AMB) | payer MEDICARE, SELFPAY ==
--- NOTE | 2025-04-29 14:18 | MHC.OFFVIS ---
Vital Signs 04/29/25 14:23 Height 5 ft 7 in Weight 200 lb BMI 31.3 BP 148/84 H Blood Pressure Location Lt brachial Position Sitting Pulse 72 Pulse Source Pulse Oximeter Pulse Oximetry (%) 95 Oxygen Delivery Method Room Air Intake Visit Reasons: colo screening Intake Note: New pt for recall colo screening. Last colo ~ 3 years ago in [place]. CC; C/O GERD + excessive gas. Pt states that she only takes Tums OTC for her sx. She did purchase omeprazole OTC recently but never took it. She states that she has not had anything to eat since 12;30 PM. 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: Yes [employer] Punch [employer] Coiler Operator Helper Services: [employer] Operator Helper Offered & Declined Information Interpreted: non-clinical & clinical Accompanied by: Son Allergies No Known Allergies Allergy (Verified 04/29/25 14:19) Medication List - Last Reconciled 04/29/25 by RIA Vargas- acetaminophen (Tylenol) 650 mg (2 x 325 mg) PO Q6H PRN aspirin 81 mg PO DAILY atorvastatin 80 mg PO DAILY 90 days bisacodyl (Dulcolax (bisacodyl)) 5 mg PO BEDTIME blood sugar diagnostic (FreeStyle Lite Strips) Blood glucose testing three times daily blood-glucose meter (FreeStyle Lite Meter kit) Blood glucose testing three times daily carvedilol 25 mg (2 x 12.5 mg) PO BID 90 days cholecalciferol (vitamin D3) 25 mcg PO DAILY 90 days furosemide 20 mg PO DAILY 90 days isosorbide mononitrate ER 15 mg (1/2 x 30 mg) PO DAILY 90 days lancets (FreeStyle Lancets) Glucose testing three times daily lisinopril 40 mg PO DAILY 90 days metformin 500 mg PO BIDWMEAL 30 days miscellaneous medical supply One large blood pressure cuff/monitor HPI HPI colo screening: Details: 74 year old? female with past medical history of hyperlipidemia, hypertension, diabetes osteoporosis, you CAD, and anxiety is here today for pre colonoscopy screening.? Patient was sent to us by her PCP.? ? Denies any family history of CRC.? Denies history of difficulty with sedation or anesthesia in the past.? Negative for history of sleep apnea, however patient does reports frequent snoring during the night and today times dizziness. Denies any history of cardiac, renal, pulmonary, or hepatic disease.?? No history of infectious? diseases like hepatitis A, B, C, HIV or tuberculosis.? Patient is on low-dose aspirin. Patient knee our Cardiology here at [facility]. Had appointment in December and has another follow-up appointment with them in 1 year. Patient denies any cardiac or respiratory symptoms. However patient does report to have epigastric pain postprandially. Patient reports that she has to use Tums frequently. Patient denies eating late at night, however occasionally she will have not at bedtime. REPLACED BY [facility] Medical History Atherosclerotic cardiovascular disease High cholesterol HTN (hypertension) Surgical History Hx of tubal ligation Family History Brother HTN (hypertension) History of open heart surgery Father HTN (hypertension) Mother HTN (hypertension) Sister HTN (hypertension) Social History Household Members: None Household Members Other:: son Both parents involved: No Caregiver staying overnight: No Housing: House Are you a primary healthcare business analyst to a significant other at home: No Do you presently have visiting nurse or other home services: No 75 years or older and lives alone: No Alcohol intake: never Patient Tobacco Use Status: Never used Tobacco e-Cigarette/Vaping Use: Never Used Second Hand Smoke Exposure: No service: No Current occupational status: retired Current occupational exposures/hazards: No Cognitive needs: No Hearing needs: No Vision needs: No Review of Systems Const Denies weight gain and Denies weight loss ENT Reports no additional complaints, Denies dysphagia and Denies odynophagia Card Reports no additional complaints Resp Reports no additional complaints GI Denies abdominal pain, Denies belching, Denies melena, Reports bloating, Denies change in bowel habits, Reports constipation, Denies dysphagia, Denies excessive flatus, Denies dyspepsia, Reports heartburn, Denies diarrhea, Denies loose stools, Denies nausea, Denies odynophagia and Denies vomiting Reports no additional complaints Musc Reports no additional complaints Neuro Reports no additional complaints Psych Reports no additional complaints Endo Reports no additional complaints Physical Exam Vital Signs: Last Vital Signs Pulse 72 04/29/25 14:23 BP 148/84 H 04/29/25 14:23 Pulse Ox 95 04/29/25 14:23 Oxygen Delivery Method Room Air 04/29/25 14:23 BMI result Body Mass Index 31.3 Const General: healthy appearing and no acute distress Nutritional Appearance: obese Orientation/consciousness: patient oriented x3 Resp Effort & Inspection: normal respiratory effort, able to speak in complete sentences, no tracheal deviation and symmetric chest movement Auscultation: clear to auscultation bilaterally Cardio Rate: regular rate GI Inspection: Yes normal to inspection, No distended and Yes obesity Palpation (GI): Soft to palpation, not firm, nontender and No hepatosplenomegaly present Auscultation: normal bowel sounds General: Yes no CVA tenderness Back/Spine/Pelvis Back: no CVA tenderness Skin General skin exam: elasticity normal, turgor normal and dry skin Neuro General: patient oriented x3 Psych Appearance: grossly normal Mental Status: mental status grossly normal Assessment & Plan Assessment & Plan (1) Screen for colon cancer: Code(s): Z12.11 - Encounter for screening for malignant neoplasm of colon (2) Postprandial epigastric pain: Code(s): R10.13 - Epigastric pain (3) Postprandial abdominal bloating: Code(s): R14.0 - Abdominal distension (gaseous) Plan Patient reports frequent epigastric pain postprandially. Patient does not know which food is causing her the symptoms more. Will check transglutaminase in lipase. Patient also reports that she is not moving her bowels completely. Patient is 7 taking pantoprazole every morning half an hour before breakfast. Avoid dietary triggers in late night snacking. Staying upright for minimum 3 hours after meals discussed with patient. Patient was encouraged to increase fluid intake and activity to promote bowel motility. Patient will return in 2-3 months so we can discuss going for colonoscopy and we will add upper endoscopy. Will ask Cardiology for clearance if patient will have any symptoms. Patient is agreeable to this plan and verbalizes understanding of instructions. She was given the opportunity to ask questions and all questions answered. Thank you for allowing me to participate in her care Orders: Orders Transglutaminase IgA 04/29/25 R10.9 - Unspecified abdominal pain Lipase 04/29/25 R10.9 - Unspecified abdominal pain Medications: New bisacodyl (Dulcolax (bisacodyl)) 5 mg PO BEDTIME 90 tabs 3RF pantoprazole 20 mg PO DAILY 30 tabs 3RF Coding Level of Care Code New Pt Level 4 (73680) Diagnoses Screen for colon cancer Z12.11 Postprandial epigastric pain R10.13 Postprandial abdominal bloating R14.0 Time Spent (min) 45 Comment 35 minutes spent with patient and additional 10 minutes spent reviewing her records
[2025-04-29 14:23] VITALS: BP 148/84; PULSE 72; O2SAT 95; BMI 31.3
--- OUTSIDE RECORDS SUMMARY | 2025-04-29 18:27 | XMS_ITS | Continuity of Care Document ---
Author Organization [facility] [address] [place] [address] Phone [phone] Care Team Providers Care International Marketing Manager Name Role Phone Curry Jewell CNP Care Team Information Receive r [phone] Problems Active Problems Provider Date Hyperlipidemia Lb Diaz M.D. Onset: 1 Essential hypertension Lb Diaz M.D. O nset: 03/19/2023 Hypercholesterolemia Lb Diaz M.D. Ons et: 03/19/2023 Vitamin D deficiency bL Diaz M.D. Ons et: 03/19/2023 Osteopenia Lb [...] Indications Ordering Provider Date Vitamin D3 Adult [id number] (1000 Ut) Chewtabs 1 by mouth every day Lb Diaz M.D. 08/23/2024 Atorvastatin [id number] Tablets Take 1 Tablet By Mouth Daily Curry Jewell CNP Hzknmjwcck87.5mg Tablets Take 1 Tablet By Mouth Twice Daily Curry Jewell CNP [id number] Tablets Take 1 Tablet By Mouth Daily Curry Jewell CNP [id number] Tablets Take 1 Tablet By Mouth Daily Curry Jewell CNP Aspirin Low Cewx09ed Tablets DR Take 1 Tablet By Mouth [...] Vitamin D 28.9 NG/ML (20-50) Phosphorus 05/20/2023 [facility] Phosphorus 3.7 mg/dL (2.5-4.5) PTH, Intact 05/20/2023 [facility] PTH, Intact 31 pg/mL (15-65) 1 Vitamin D deficiency has been defined by the [place] [employer] and an Endocrine Society practice guideline as a level of serum 25-OH vitamin D less than 20 ng/mL (1,2). The Endocrine Society went on to further define vitamin D insufficiency as a level between 21 and 29 ng/mL (2). 1. IOM ([place] [employer]). 2010. Dietary reference intakes for [...]
== END 2025-04-29 14:51 | disposition home or self-care (01) ==
LOC: HO.HGI 14:18
PROVIDERS: PCP Nurse Practitioner Family; Visit Provider Nurse Practitioner Family
DX: R10.13 Epigastric pain (principal); R14.0 Abdominal distension (gaseous)
CPT/HCPCS: 99204